=== PATIENT | male | born 1935 | race Caucasian/White ===

== ENCOUNTER 2018-02-04 11:35 | Inpatient (IN) ==
[2018-02-04] MEDS ORDERED: Aspirin 325 MG TABLET PO ONE (12:18)
--- NOTE | 2018-02-04 12:24 | Emergency Department Note ---
Disposition Clinical Impression: Non-STEMI (non-ST elevated myocardial infarction) Atrial fibrillation Qualifiers: Atrial fibrillation type: unspecified Qualified Code(s): I48.91 - Unspecified atrial fibrillation Disposition: Admitted As Inpatient Condition: Fair General Adult HPI - General Stated complaint: pnuemonia Time Seen by Provider: 02/04/18 11:52 - History of Present Illness HPI Narrative: I did take the call from the [facility] in regards to this patient. Patient was evaluated at bedside.. Patient presented to the [facility] for concern for possible pneumonia. He has had a cough present for approximately the last month. He has had rib pain which she relates to the right side and worse with coughing. Patient had blood work done showing a troponin of greater than 5. Upon further questioning in the emergency department he states that he has had episodes of diaphoresis where he is questioning whether his air conditioner is gone out. He has had difficulty walking to the mailbox be secondary to shortness of breath. Patient has not had typical chest pain type symptoms. EKG from the [facility] was nondescriptive however EKG within the emergency department shows biphasic T waves throughout the precordial leads as well as T-wave inversion throughout the lateral leads. I will place a call to cardiology. Patient will receive aspirin and heparin and admission. [facility] Chart as dictated below. Urinalysis clear with trace ketones and trace protein. Blood work shows a BNP of 13,125. Troponin 5.79. CK of 122. Sodium 137, potassium 4.7. Chloride 102. CO2 24. Glucose 324. He went 31. Creatinine 1.42. GFR 50.9. WBC 9.7. Hemoglobin 14.0. Platelets 235. A1c 9.2. Chest x-ray shows patchy perihilar opacity in the right midlung and to lesser degree in the left base with associated small right pleural effusion. Suspicious for multifocal pneumonia although pulmonary edema and CHF could have this appearance. They recommend follow-up chest x-ray. Medications include losartan 25 mg 1 tablet daily. Metoprolol 100 mg one half tablet every day. Aspirin 81 mg. Atorvastatin 20 mg at bedtime. Hydrochlorothiazide 25 mg every day. Losartan 1 tablet every day. Metformin 1 g twice a day. Past medical history of peripheral vascular disease, hypertension, diabetes. - Related Data Home Medications Medication Instructions Recorded Confirmed Aspirin [Adult Aspirin] 81 mg PO DAILY 02/04/18 02/04/18 Atorvastatin [Lipitor] 10 mg PO HS 02/04/18 02/04/18 Losartan [Cozaar] 25 mg PO DAILY 02/04/18 02/04/18 Metoprolol Succinate [Toprol Xl] 50 mg PO DAILY 02/04/18 02/04/18 Allergies Allergy/AdvReac Type Severity Reaction Status Date / Time Penicillins [PCN] Allergy Rash Verified 02/04/18 12:38 Review of Systems: CONSTITUTIONAL: No weight loss, fever, chills, weakness or fatigue. HEENT: Eyes: No visual changes. Ears, Nose, Throat: No hearing loss, difficulty talking or unable to swallow. SKIN: No rash or itching. CARDIOVASCULAR: No chest pain, chest pressure or chest discomfort. No palpitations or edema. RESPIRATORY: Shortness of breath without sputum production GASTROINTESTINAL: No anorexia, nausea, vomiting or diarrhea. No abdominal pain or blood. GENITOURINARY: No burning on urination or hematuria. NEUROLOGICAL: No headache, dizziness, syncope, paralysis, ataxia, numbness or tingling in the extremities. No change in bowel or bladder control. MUSCULOSKELETAL: No muscle pain, back pain, joint pain or stiffness. Physical Exam General: Well appearing, nontoxic, no acute distress Head: Normocephalic Atraumatic Eyes: PERRL, EOMI ENT: Airway patent, no stridor Neck: supple, no meningismus Chest: Rales bilaterally Cardiac: Regular rate and rhythm, no murmurs, rubs or gallops Abdomen: soft, nontender, nondistended; no guarding, rebound, or tenderness to percussion Musculoskeletal: Calves symmetric, nontender, no palpable cord Skin: No rash, normal skin tone Neuro: Alert and Oriented to person, place, and time; No focal deficit, Course - Reevaluation(s) Reevaluation #1: Patient with an STEMI and EKG changes. We will discuss with cardiology. Aspirin and heparin and admission. Patient is comfortable resting in bed. He does describe episodes of exertional dyspnea as well as diaphoresis but has not had chest pain. - Consultations Consultation #1: Discussed with cardiology. Patient be placed on heparin drip. Patient will be evaluated for possible catheter later today. Patient to be kept nothing by mouth. Consultation #2: Discussed hospitalist. Patient except for admission. Vital Signs Temperature 98.7 F 02/04/18 11:42 Pulse Rate 86 02/04/18 11:42 Respiratory Rate 18 02/04/18 11:42 Blood Pressure 122/71 02/04/18 11:42 O2 Sat by Pulse Oximetry 98 02/04/18 11:42 Temperature 97.7 F 02/04/18 17:58 Pulse Rate 83 02/04/18 17:58 Respiratory Rate 14 02/04/18 17:58 Blood Pressure 112/76 02/04/18 17:58 O2 Sat by Pulse Oximetry 94 02/04/18 17:58 Oxygen Delivery Oxygen Delivery Room Air Medical Decision Making - Medical Records Medical records reviewed: Yes I reviewed the patient's medical records. - Lab Data Lab results reviewed: Yes I reviewed the patient's lab results. Result diagrams: 02/04/18 12:46 02/04/18 12:46 Lab Results 02/04/18 02/04/18 02/04/18 Range/Units 12:46 12:46 12:46 WBC 8.8 (4.3-11.1) K/mcL RBC 4.21 (4.19-5.50) M/mcL Hgb 14.0 (12.9-16.9) g/dL Hct 40.9 (37.5-50.1) % MCV 97.1 (83.0-100.0) fL MCH 33.3 (28.0-33.3) pg MCHC 34.2 (31.6-35.5) g/dL RDW 13.2 (11.5-14.5) % Plt Count 208 (140-400) K/mcL MPV 11.7 (9.4-12.4) fL Immature Plt Fraction 8.4 H (1.1-6.1) % PT 14.0 H (9.4-12.1) Seconds INR 1.2 Heparin Anti-Xa, Unfract 0.06 L (0.30-0.70) IU/mL Sodium 137 (136-145) mEq/L Potassium 4.5 (3.5-5.1) mEq/L Chloride 101 (98-107) mEq/L Carbon Dioxide 27 (23-29) mEq/L BUN 31 H (8-23) mg/dL Creatinine 1.23 (0.70-1.30) mg/dL Est GFR ( Amer) > 60 (> 60) Est GFR (Non-Af Amer) 56 L (> 60) BUN/Creatinine Ratio 25 (6-26) Glucose 327 H (70-105) mg/dL Calculated Osmolality 303 H (280-300) Calcium 9.6 (8.6-10.3) mg/dL Triglycerides 102 (< 150) mg/dL Cholesterol 122 (< 200) mg/dL LDL Cholesterol, Calc 73 (0-99) mg/dL VLDL Cholesterol, Calc 20 (< 31) mg/dL HDL Cholesterol 29 L (40-59) mg/dL Cholesterol/HDL Ratio 4.2 (0-4.9) - Radiology Data Radiology results reviewed: Yes I reviewed the patient's radiology results. - EKG Data EKG #1 EKG attestation: Yes I reviewed and interpreted this EKG. EKG results narrative: EKG shows atrial fibrillation rate of 65. QRS 123. QTC 508. Patient has biphasic T waves throughout the precordial leads. T-wave inversion throughout the lateral leads. No old EKG for comparison. History of A. fib.
[2018-02-04] MEDS ORDERED: *HR* Heparin 5,000 UNIT/ML VIAL IVP ONE (12:39)
[2018-02-04] MEDS ORDERED: *HR* Heparin 5,000 UNIT/ML VIAL IVP PRN ×2 (12:39)
[2018-02-04] MEDS ORDERED: Heparin 25,000 UNIT/500 ML D5W 25,000 UNIT/500 ML BAG IVC SCH (12:45)
[2018-02-04 13:10] LABS: Hematocrit 40.9 % (37.5-50.1); Immature Platelets 8.4 % (1.1-6.1); Mean Corpuscular HGB Conc 34.2 g/dL (31.6-35.5); Mean Corpuscular Hemoglobin 33.3 pg (28.0-33.3); Mean Corpuscular Volume 97.1 fL (83.0-100.0); Mean Platelet Volume 11.7 fL (9.4-12.4); Red Blood Count 4.21 M/mcL (4.19-5.50); Red Cell Distribution Width 13.2 % (11.5-14.5)
[2018-02-04 13:27] LABS: Heparin anti-factor XA UFH 0.06 IU/mL (0.30-0.70)
[2018-02-04 13:28] LABS: INR 1.2
[2018-02-04] MEDS ORDERED: Naloxone 0.4 MG/ML INJ IVP PRN ×2 (13:45→13:48)
--- NOTE | 2018-02-04 13:46 | Cardiology Consult Note ---
<Leelee Lin Vladimir - Last Filed: 02/04/18 15:13> Date of Encounter: 02/04/18 Time of Encounter: 13:00 Assessment and Plan (1) Non-STEMI (non-ST elevated myocardial infarction) Current Visit: Yes Status: Acute Patient presented to the [facility] with ongoing cough and shortness of breath for 1+ month. No acute ECG changes noted. Initial troponin 5.79. Chest pain free upon exam. Reports symptoms consistent with stable angina over the past 1+ years. Reports remote hx of normal stress test. Agree with IV heparin gtt, asa 325 mg x1 now and then 81 mg daily. Continue home BB, statin. Recommend LHC with possible PCI; alternatives, risks, and benefits discussed, he is agreeable to proceed. Check echocardiogram. Cardiac rehab consult. Will continue to follow. (2) Atrial fibrillation Current Visit: Yes Status: Acute Newly discovered atrial fibrillation, chronicity unclear. Asymptomatic--no palpitations reported. Remains rate controlled, 70's-80's, continue home dose of Toprol XL. Check TTE, TSH, BMP pending. CHA2Ds Vasc= (4--HTN, DMII, age, suspected CAD); likely will require full AC. Will continue heparin gtt for now, discuss NOAC vs. coumadin once testing completed. Of note, follows with [facility]. Qualifiers: Atrial fibrillation type: unspecified Qualified Code(s): I48.91 - Unspecified atrial fibrillation (3) Peripheral vascular disease Current Visit: Yes Status: Chronic Reports symptoms consistent with intermittent claudication. On asa and statin. RACHEL's ordered by primary service. If abnormal, recommend vascular surgery consult. Discussion w patient/family: The assessment and plan as outlined above was discussed with the patient and/or family members who expressed understanding and agreement. All questions were answered. Thank you for involving us in the care of your patient. Please call with any questions. History of Present Illness Consult date: 02/04/18 Requesting physician: Clifford Horn Consult reason: NSTEMI Chief complaint: Cough, shortness of breath History of present illness: Mr. Marshall is a 82 year old male with PMHx significant of HTN, HLD, and DMII who presented [facility] the ED [facility] to elevated troponin of 5.79. Reports he presented to the ED due to ongoing cough that has been present over the past month. He notes that his of 47 years recently secondary to PNA and wanted to ensure he was not developing PNA. Also reports ongoing shortness of breath that has been present over the past several months and symptoms consistent with stable angina over the past several years; reports non- radiating midsternal chest tightness that occurred with walking 50+ yards, improved with rest. Describes bilateral lower extremity cramping with ambulation , improves with rest. Upon exam he is chest pain free. No acute ECG changes. Reports remote hx of stress test. Past Med Surg Social Fam HX - Past Medical History Attestation: Yes The following information was validated with the patient. Source: patient Medical history: diabetes, hyperlipidemia, hypertension Psychiatric history: no psych history - Past Surgical History Surgical History: non-contributory - Social History Smoking Status: Former smoker Packs per day: quit 1973 Smokeless Tobacco Status: No Alcohol use: rarely Drug use: none Medications and Allergies Aspirin [Adult Aspirin] 81 mg PO DAILY 02/04/18 [History] Atorvastatin [Lipitor] 10 mg PO HS 02/04/18 [History] Losartan [Cozaar] 25 mg PO DAILY 02/04/18 [History] Metoprolol Succinate [Toprol Xl] 50 mg PO DAILY 02/04/18 [History] 3 Allergy/AdvReac Type Severity Reaction Status Date / Time Penicillins [PCN] Allergy Rash Verified 02/04/18 12:38 All Systems Review: The remainder of the systems were reviewed and are negative - Cardiovascular Cardiovascular: as per HPI Physical Examination Vital Signs, Last 4 Hours Temp Pulse Resp BP Pulse Ox 02/04/18 13:00 82 20 143/71 99 02/04/18 12:40 98 02/04/18 12:30 79 18 124/69 99 02/04/18 12:00 78 20 115/76 99 02/04/18 11:42 98.7 F 86 18 122/71 98 General: Conversant, No Apparent Distress HEENT: Atraumatic, Normocephaly, Mucus Membranes Moist Neck: No JVD, Normal carotid pulses Cardiac: No Murmur, Other (irregularly irregular) Lungs: Normal Breath Sounds, No Wheeze, Rales, Rhonchi Neuro: Alert and responsive, No focal deficits noted Abdomen: Soft, Non-Tender Skin: No rashes noted on visualized skin Musculoskeletal: No Chest Wall Tenderness Extremities: No Clubbing, No Cyanosis, No Edema, Normal Pulses Results 02/04/18 12:46 02/04/18 12:46 Lab Results 02/04/18 02/04/18 12:46 12:46 WBC 8.8 Hgb 14.0 Hct 40.9 Plt Count 208 INR 1.2 Active Medications Dextrose/Water (Dextrose 50% (Syg)) 25 ml IVP AD PRN PRN Reason: Hypoglycemia Stop: 08/06/18 13:48 Glucagon (Glucagen) 1 mg IM ONCE PRN PRN Reason: Hypoglycemia Stop: 08/06/18 13:48 Glucose (Gluctose) 15 gm PO ONCE PRN PRN Reason: Hypoglycemia Stop: 08/06/18 13:48 Glucose (Gluctose) 30 gm PO ONCE PRN PRN Reason: Hypoglycemia Stop: 08/06/18 13:48 Heparin Sodium (Porcine) (Heparin) 4,000 unit IVP Q6HR PRN PRN Reason: SEE COMMENTS Stop: 08/06/18 12:40 Heparin Sodium (Porcine) (Heparin) 2,000 unit IVP Q6H PRN PRN Reason: SEE COMMENTS Stop: 08/06/18 12:40 Heparin Sodium/Dextrose (Heparin 25,000 Unit/500 Ml D5w) 25,000 unit in 500 mls @ 16.645 mls/hr IVC .Q24H GARFIELD; 12 UNIT/KG/HR PRN Reason: Protocol Stop: 08/06/18 12:46 Last Admin: 02/04/18 13:18 Dose: 12 unit/kg/hr, 16.645 mls/hr Dextrose (Dextrose 5%) 1,000 mls @ 100 mls/hr IVC .Q10H PRN PRN Reason: HYPOGLYCEMIA Stop: 08/06/18 13:48 Insulin Human Lispro (Humalog) 0 units SQ HS G[facility] PRN Reason: Protocol Stop: 08/06/18 21:01 Insulin Human Lispro (Humalog) 0 units SQ TIDAC [facility] PRN Reason: Protocol Stop: 08/06/18 16:31 Levofloxacin (Levaquin) 750 mg PO DAILY [facility] Stop: 08/07/18 09:01 Naloxone HCl (Narcan) 0.4 mg IVP Q2MIN PRN PRN Reason: SEE COMMENTS Stop: 08/06/18 13:46 Nitroglycerin (Nitroglycerin) 0.4 mg SL Q5MIN PRN PRN Reason: Chest Pain Stop: 08/06/18 14:04 - Imaging and Cardiology Chest Xray: report reviewed Echo: pending Cardiac cath: pending - EKG Interpretation EKG results cardiology: personally reviewed Consult Discharge Plan - Plan [facility]errals: [facility]Primary Care Provider] - <Wiliam Scherer - Last Filed: 02/05/18 11:16> Date of Encounter: 02/04/18 - Attending Attestation I have personally performed a face to face evaluation on this patient. I have reviewed and agree with the care plan. History and Exam by me shows: CC: Chest pain HPI: PT presented to ER with complaints of cough and shortness of breath x 1 month. He also complains of chest heaviness, mid epigastric, occurs with exercise, associated with shortness of breath he has been attributing to indigestion. He also reports increased fatigue over last several weeks, which he had attributed to recent loss of his three weeks ago. On evalution in the [facility] was found to have eelvated troponin, and transferred to [facility]. He is pain free at present on current medications and O2. He was recently diagnosed with A fib with conttrolled ventricular response of unclear duration. Pt believes started one to two weeks ago, with increased shortness of breath with exertion, but no palpitations. ROS: reviewed PMH: reviewed PE: Pt seen and examined, agree with findings as documented IMP: 1. NSTEMI,discussed risk and benefits, recommend emergent LHC/Poss en light of increasing cardiac enzemes, Pt agrees to proceed. 2. A fib with controlled ventricular response of unknown duration, will add long acting beta blockade to control ventricular response, follow clinical response. 3. Claudication: will evaluate lower ext arterial dopplers after coronary artery anatomy is defined. Assessment and Plan Discussion w patient/family: The assessment and plan as outlined above was discussed with the patient and/or family members who expressed understanding and agreement. All questions were answered. Thank you for involving us in the care of your patient. Please call with any questions. History of Present Illness History of present illness: Mr. Marshall is a 82 year old male Past Med Surg Social Fam HX - Family History Mother Living Status: Age at : 93 Cause of : stroke Hx Family Cardiac Disorders: Yes (Htn) Father Living Status: Age at : 81 Cause of : Stroke Hx Family Cancer: Yes (Bladder ca) All Systems Review: The remainder of the systems were reviewed and are negative Physical Examination Vital Signs, Last 4 Hours Temp Pulse Resp BP Pulse Ox 02/05/18 07:19 97.9 F 92 16 116/72 91 Results 02/05/18 03:07 02/05/18 03:07 Lab Results 02/04/18 02/04/18 02/05/18 15:33 15:33 03:07 WBC 10.6 Hgb 13.5 Hct 39.9 Plt Count 202 INR APTT Sodium Potassium Chloride Carbon Dioxide BUN Creatinine Glucose Calcium Magnesium Total Bilirubin AST ALT Alkaline Phosphatase Troponin I 5.21 H* B-Natriuretic Peptide 1505 H 02/05/18 02/05/18 03:07 03:07 WBC Hgb Hct Plt Count INR 1.3 APTT 26.7 Sodium 133 L Potassium 3.7 Chloride 101 Carbon Dioxide 25 BUN 34 H Creatinine 1.37 H Glucose 208 H Calcium 9.0 Magnesium 1.8 Total Bilirubin 0.8 AST 20 ALT 32 Alkaline Phosphatase 59 Troponin I B-Natriuretic Peptide
[2018-02-04] MEDS ORDERED: *HR* Dextrose 50 % in Water (Syg) 50 ML SYRINGE IVP PRN ×2 (13:47→13:48)
[2018-02-04] MEDS ORDERED: D5% in Water 1,000 ML IVC PRN ×2 (13:47→13:48)
[2018-02-04] MEDS ORDERED: Dextrose Gel 15 GM/37.5 ML TUBE PO PRN ×4 (13:47→13:48)
--- NOTE | 2018-02-04 13:57 | Internal Med History&Physical ---
Addendum entered and electronically signed by Delbert Carrington 02/04/18 14:43: Add to assessment: Pneumonia -CXR shows pulmonary edema and cannot exclude multifocal disease -blood cultures -sputum culture -legionella and strep pneumo antigen -Mycoplasma IgM antigen -lactic acid check -respiratory panel -will start on 750mg PO Levaquin -recheck BNP Pulmonary edema -pneumonia vs heart failure -ECHO pending -if pt becomes SOB, we will add 20mg IVP lasix to tx the pulmonary edema Type 1 (atherosclerotic ) vs Type 2 (demand ischemia) Original Note: <Delbert Carrington - Last Filed: 02/04/18 13:52> Date of Encounter: 02/04/18 Time of Encounter: 13:52 Internal Medicine - H&P: HPI Chief complaint: "coughing" Admitted From: Home Plans for Post Hospital Care: Home History of present illness: Mr. Marshall is a 82 year old male with PMH of T2DM, HDL, HTN, PAD. He presented to the ER with complaints of increasing SOB and cough. The pt states he has been chronically SOB for years but over the last month the pt has had increased SOB from his baseline. He also c/o cough, which has been worse the last few nights. He has been coughing so hard that his ribs hurt at times. The patient has no complaints of chest pain. He has had some fevers/chills over the last few days. No c/o radiating pain to jaw or left arm. The patient states he has never had a heart attack before, no previous cardiax hx is on file. He denies having a LHC in the past, no stents, and had a stress test at one point that was negative for ischemia/infarct. The pt states that the most active thing he does is walk to the mailbox, which he does without difficulty. He has been having increasing claudication with long distances, however, and has been taking more of his PAD medications although he doesn't really seem to know what medications he uses. The patient will be admitted today and will have a LHC done later today. The pt is informed of all the risks and benefits of LHC by finance clerk, Dr. Scherer, and will have procedure later today. Past Med Surg Social Fam HX - Past Medical History Medical history: diabetes, hyperlipidemia, hypertension Psychiatric history: no psych history - Social History Smoking Status: Never smoker Smokeless Tobacco Status: No Alcohol use: none Drug use: none Internal Medicine - H&P: Meds Aspirin [Adult Aspirin] 81 mg PO DAILY 02/04/18 [History] Atorvastatin [Lipitor] 10 mg PO HS 02/04/18 [History] Losartan [Cozaar] 25 mg PO DAILY 02/04/18 [History] Metoprolol Succinate [Toprol Xl] 50 mg PO DAILY 02/04/18 [History] 3 Allergy/AdvReac Type Severity Reaction Status Date / Time Penicillins [PCN] Allergy Rash Verified 02/04/18 12:38 All Systems PM: A 10-system review of systems was performed and is negative for pertinent findings except as documented above in the HPI. - Constitutional Constitutional: chills, fever(s) - Cardiovascular Cardiovascular ROS IM: claudication, no chest pain, no dyspnea, no dyspnea on exertion, no irregular heart rhythm, no palpitations - Respiratory Respiratory: cough, wheezing - Gastrointestinal Gastrointestinal: no diarrhea, no vomiting - Neurological Neurological ROS: no dizziness, no numbness, no tingling - Constitutional Vitals: Temp Pulse Resp BP Pulse Ox 98.7 F 82 20 143/71 99 02/04/18 11:42 02/04/18 13:00 02/04/18 13:00 02/04/18 13:00 02/04/18 13:00 Exam: General - AOx3, NAD Cardio - RRR, s1s2, CTA , no mrg lungs - CTAB, no wheeze abd - NTND, no mass, no rebound or guarding skin - intact, no rash extremities - no edema, hairless legs B/L 2/2 PAD psych - appropriate affect Internal Med - H&P Results - Labs CBC & Chem 7: 02/04/18 12:46 Labs: Short CBC 02/04/18 Range/Units 12:46 WBC 8.8 (4.3-11.1) K/mcL Hgb 14.0 (12.9-16.9) g/dL Hct 40.9 (37.5-50.1) % Plt Count 208 (140-400) K/mcL - Assessment and plan (1) Non-STEMI (non-ST elevated myocardial infarction) Status: Acute Assessment and plan: Pt is a transfer from [facility] -had a troponin of 5 on admission -has been having increasing SOB from baseline with cough In the ER, he is started on a heparin drip and cardiology is planning to do a LHC on him later today -ASA 325mg given Plan: -LHC planned for today -CXR pending -UBALDO score of 4 ---> will benefit from early LHC -continue heparin drip per protocol -NPO for LHC -trending troponins -continue Artorvastatin 20mg at bedtime, Losartan 25mg per day, metoprolol 100mg 1/2 tablet everyday -nitroglycerin 0.4mg q5min prn chest pain -ECHO pending -cardiology consulted, appreciate recommendations (2) Hypertension Status: Chronic Assessment and plan: BP 124/69 -adequate control -Losartan 25mg daily, Lopressor, HCTZ 25mg everyday Qualifiers: Hypertension type: essential hypertension Qualified Code(s): I10 - Essential (primary) hypertension (3) Hyperlipidemia Status: Chronic Assessment and plan: Atorvastatin 20 mg at bedtime. -lipid panel pending -can go up to 40-80mg if ok with cardiology -cardiac diet Qualifiers: Hyperlipidemia type: unspecified Qualified Code(s): E78.5 - Hyperlipidemia , unspecified (4) Peripheral vascular disease Status: Chronic Assessment and plan: RACHEL's pending (5) Diabetes mellitus Status: Acute Assessment and plan: Low dose sliding scale -hold metformin Qualifiers: Diabetes mellitus type: type 2 Diabetes mellitus alf insulin use: without windows systems architect use Diabetes mellitus complication status: with unspecified complications Qualified Code(s): E11.8 - Type 2 diabetes mellitus with unspecified complications (6) Atrial fibrillation Status: Acute Assessment and plan: EKG showed a fib in the ER -HR 82 - Metoprolol 100 mg one half tablet every day. Aspirin 81 mg Qualifiers: Atrial fibrillation type: chronic Qualified Code(s): I48.2 - Chronic atrial fibrillation (7) DVT prophylaxis Status: Acute Assessment and plan: On heparin drip as per protocol - Time Spent With Patient Total time spent is greater than 50% in coordination of care (as documented) at patient's floor/unit and/or counseling patient: less than 15 minutes <Krystle Alexander - Last Filed: 02/04/18 18:02> Date of Encounter: 02/04/18 Internal Medicine - H&P: HPI History of present illness: Mr. Marshall is a 82 year old male All Systems PM: A 10-system review of systems was performed and is negative for pertinent findings except as documented above in the HPI. - Constitutional Vitals: Temp Pulse Resp BP Pulse Ox 97.8 F 80 14 89/58 93 02/04/18 17:28 02/04/18 17:28 02/04/18 17:28 02/04/18 17:28 02/04/18 17:28 Internal Med - H&P Results - Labs CBC & Chem 7: 02/04/18 12:46 02/04/18 12:46 Labs: Cardiac Enzymes 02/04/18 Range/Units 15:33 Troponin I 5.21 H* (< 0.04) ng/mL - Assessment and plan (1) Non-STEMI (non-ST elevated myocardial infarction) Current Visit: Yes Status: Acute (2) Atrial fibrillation Current Visit: Yes Status: Acute Qualifiers: Atrial fibrillation type: unspecified Qualified Code(s): I48.91 - Unspecified atrial fibrillation (3) Hypertension Current Visit: No Status: Chronic Qualifiers: Hypertension type: essential hypertension Qualified Code(s): I10 - Essential (primary) hypertension (4) Hyperlipidemia Current Visit: No Status: Chronic Qualifiers: Hyperlipidemia type: unspecified Qualified Code(s): E78.5 - Hyperlipidemia , unspecified (5) Peripheral vascular disease Current Visit: Yes Status: Chronic (6) Diabetes mellitus Current Visit: No Status: Acute Qualifiers: Diabetes mellitus type: type 2 Diabetes mellitus alf insulin use: without alf use Diabetes mellitus complication status: with unspecified complications Qualified Code(s): E11.8 - Type 2 diabetes mellitus with unspecified complications (7) DVT prophylaxis Current Visit: No Status: Acute - Time Spent With Patient Total time spent is greater than 50% in coordination of care (as documented) at patient's floor/unit and/or counseling patient: - Attending Attestation I examined this patient and my medical decision-making was reviewed with the Resident Physician Dr. Carrington. I agree with the documented findings, disposition and treatment plan as described except to the extent set forth below. Mr. Marshall is a 82 year old male with PMH of T2DM, HDL, HTN, PAD. He presented to the ER with complaints of increasing SOB and cough for 3-4 weeks. He denied any CP. He went to [place] ER, where his initial Trop was elevated at 5.7, pt was transferred here for further care. His CXR showed multi focal infection, and pulm edema. He was admitted in the hospital and started him Heparin gtt. He just went for LHC, which showed severe multi vessel CAD. Card recommend CTS consult for CABG. He denied any CP. Mild SOB only. Gen: A, A< O x 3 Chest: Diminished BS b/l, no ronchi Heart: S1S2+ RRR No murmurs 1. Acute PNA - bacterial slightly elevated LA started on empirical abx Levaquin 2. Acute NSTEMI with severe multi vessel CAD s/p LHC now.. CTS consulted cont Heparin gtt for now ASA+ Statin + BB 3. Acute CHF exacerbation could be systolic 2D Echo pending due to pneumonia, will hold on Lasix for now
[2018-02-04] MEDS ORDERED: Nitroglycerin 0.4 MG TAB.SUBL SL PRN (14:03)
[2018-02-04 14:41] LABS: BUN/Creatinine Ratio 25 (6-26); Blood Urea Nitrogen 31 mg/dL (8-23); Calcium 9.6 mg/dL (8.6-10.3); Carbon Dioxide 27 mEq/L (23-29); Chloride 101 mEq/L (98-107); Chol/HDL Ratio 4.2 (0-4.9); Cholesterol 122 mg/dL (< 200); Glucose 327 mg/dL (70-105); HDL Cholesterol 29 mg/dL (40-59); LDL Cholesterol,Calculated 73 mg/dL (0-99); Osmolality,Calculated 303 (280-300); Potassium 4.5 mEq/L (3.5-5.1); Sodium 137 mEq/L (136-145); Triglycerides 102 mg/dL (< 150); eGFR For Non-African Americans 56 (> 60)
[2018-02-04] MEDS ORDERED: Heparin 1,000 UNITS/500 mL 0 ML ONE (15:42)
[2018-02-04] MEDS ORDERED: 0.9 % Sodium Chloride 1,000 ML ONE ×2 (15:42→16:15)
[2018-02-04] MEDS ORDERED: ISOVUE-370 200 ML INFUS..BTL IV ONE ×2 (15:42→16:34)
[2018-02-04] MEDS ORDERED: *HR* Heparin 10,000 UNIT/10 ML VIAL ONE (15:42)
[2018-02-04] MEDS ORDERED: Nitroglycerin 1,000 MCG/10 ML VIAL IV ONE (15:43)
--- NOTE | 2018-02-04 15:50 | Pre-Sedation Evaluation ---
Pre-sedation evaluation - Pre-sedation checklist Date of procedure: 02/04/18 Procedure: [facility] Recent Vitals: Last Vital Signs Temp 98.7 F 02/04/18 11:42 Pulse 85 02/04/18 14:20 Resp 20 02/04/18 14:20 BP 101/68 02/04/18 14:20 Pulse Ox 98 02/04/18 14:20 H&P (including ROS) documented in medical record: Yes Previous reaction to sedatives/anesthetics: No Dietary Status: NPO after Midnight Airway Assessment: Patient can open mouth completely, TMJ function normal, Micrognathia (under-bite, receding chin) absent, Neck with adequate range of motion Dentition: No loose teeth or bridges Possible difficult airway: No ASA Classification *see protocol: CLASS II-Mild systemic disease Plan of Care: Pt appropriate candidate for procedure/moderate/conscious sedation , Risks/benefits of procedure/sedation discussed w/ patient/family Cardiac Registry (Cardio Only) - Functional Capacity Functional Capacity: < 4 METS - Clincal Frailty Scale Clinical Frailty Scale: Vulnerable
[2018-02-04] MEDS ORDERED: *HR* Midazolam HCl 2 MG/2 ML VIAL ONE (16:14)
[2018-02-04] MEDS ORDERED: *HR* FentaNYL (PF) 100 MCG/2 ML VIAL ONE (16:15)
--- NOTE | 2018-02-04 17:27 | Invasive Diagnostic Lab Proc ---
Name: Laith Marshall Date of Study: 02/04/2018 Date: 1935 Ht: 66.1in Medical Record#: [id number] Age: 82 Wt: 152.12lb Gender: Male BSA: 1.78 Order #: [id number] BMI: 24.45 Physicians Procedure Physician: Karina Good MD, [facility] Referring MD: Referring MD: Staff Name Position Time In Tyler Camacho RN Monitor 03:54 PM Marcella Pham RT (R) Scrub 03:54 PM Catherine Diana RN Inductor Tester 03:55 PM Indications Indication Non-Stemi Procedures Performed Procedure L HRT ARTERY/VENTRICLE ANGIO INJECT SUPRVLVAORTAGRAM Pre-Procedure Checklist Informed consent is complete signed and on chart. H&P is on chart. ID band is on and ID verified with patient. Patient NPO for procedure The procedure was described for the patient and questions were answered. ECG is on chart. Plan of Care Patient will tolerate the procedure without complications. Adequate level of comfort will be maintained. Hemodynamics will remain stable Patient will recover from procedure without complications. Respiratory function will be maintained. Cardiac rhythm will remain stable. Patient temperature will be maintained. Patient and/or family have verbalized understanding of the procedure. Patient Education Chief Complaint/Reason for Test: Cardiac Cath Developmental Category: Geriatric (65+ years) Developmentally Appropriate for Age: Yes Learning Barriers: None Education Needs: Procedure Education Method: Verbal Information Taught: Cardiac Cath Educational Evaluation: Able to repeat information Intravenous Access Time IV Size Location DC'd Fluid/Drip Rate Units RN Started with 22g 1 " 0.9NaCl ml/hr Allergies Penicillins Vital Signs Time BP (mmHg) HR (bpm) O2 Sat. RR (bpm) LOC 04:12 PM / % 5 = Fully awake and oriented or at pre-proc level 04:12 PM / % 4 = Oriented but drowsy 04:27 PM / % 4 = Oriented but drowsy 04:10 PM 92 / 63 104 83 % 10 04:15 PM 145 / 82 78 96 % 21 04:20 PM 128 / 78 82 96 % 22 04:25 PM 111 / 64 73 92 % 17 04:30 PM 122 / 66 77 95 % 16 04:35 PM 115 / 65 68 98 % 16 04:40 PM 111 / 61 84 96 % 17 04:45 PM 94 / 55 76 98 % 17 04:50 PM 116 / 61 75 86 % 18 04:55 PM 118 / 72 61 85 % 20 Procedural Medications Time Medication Dose Units Method Given By 04:13 PM Oxygen 2 L/min nasal cannula Catherine Diana RN 04:19 PM Versed 2 mg Intravenous Catherine Diana RN 04:19 PM Fentanyl 50 mcg Intravenous Catherine Diana RN 04:20 PM Lidocaine 2% 20 ml Subcutaneous Karina Good MD, [facility] ASA Classification: CLASS II- Mild systemic disease (i.e. well-controlled diabetes, hypertension, asthma, cigarette smoking) Jr Score Preprocedure Postprocedure Activity 2- Moves 4 extremities sustained head lift Activity 2- Moves 4 extremities sustained head lift Circulation 2- SBP +/= 20 points of pre-anesthetic level Circulation 2- SBP +/= 20 points of pre-anesthetic level Consciousness 2- Awake and alert oriented x 3 Consciousness 2- Awake and alert oriented x 3 O2 Saturation 2- Able to maintain O2 satruation of 92% on room air O2 Saturation 2- Able to maintain O2 satruation of 92% on room air Respiratory 2- Able to deep breathe and cough well Respiratory 2- Able to deep breathe and cough well Total Score 10 Total Score 10 Contrast Agent: Isovue Diagnostic Contrast: 240 ml Total Contrast: 240 ml Fluoro Dose: 71979 mGy Procedure Log Time Note Enter By 03:51 PM CathStat 03:54 PM Tyler Camacho RN Position: Monitor Time in: 15:54 cedwards 03:54 PM Marcella Pham RT (R) Position: Scrub Time in: 15:54 cedwards 03:55 PM Catherine Diana RN Position: Inductor Tester Time in: 15:55 cedwards 04:07 PM Pt arrived to microbiological laboratory technician 2 at 16:07 cedwards 04:07 PM Patient charges- Angio tray pack, Navilyst 3mm J, Pulse Oximetry and ACIST tubing and transducer cedwards 04:07 PM IV Supplies used: J loop Angio Cath. cedwards 04:07 PM Physician arrived 16:07 cedwards 04:08 PM ASA Class CLASS II- Mild systemic disease (i.e. well-controlled diabetes, hypertension, asthma, cigarette smoking) cedwards 04:08 PM Franky and sandor completed cedwards 04:08 PM Sign in performed according to hospital policy. cedwards 04:08 PM Procedure start 16:08 ced 04:09 PM Case Start 04:09 PM Vitals capture started with the following parameters, Patient=Adult, Interval=5 min, Initial Keuefmcz=967 mmHg, Deflation Rate=5 mmHg, Cuff placed on Right Arm 04:10 PM TR=770 bpm, NIBP=92/63 mmhg, SpO2=83.0 %, Resp=10 B/min 04:10 PM Recorded ECG: HR=93 Condition=Condition 1 04:11 PM Recorded ECG: HR=96 Condition=Condition 1 04:12 PM Time: 16:12 Patient comfortable and pain free: Yes cedwards 04:12 PM Time: 16:12LOC: 5 = Fully awake and oriented or at pre-proc level ced 04:13 PM Time: 16:13 Oxygen on at 2 L/min per nasal cannula by Catherine Diana RN ced 04:14 PM Hair removed from procedure site in procedure lab using clippers. Bilateral groin prepped with Chloraprep by Catherine Diana RN, then patient was draped. Skin intact. ced 04:15 PM HR=78 bpm, AUVK=729/82 mmhg, SpO2=96.0 %, Resp=21 B/min, EtCO2=30 mmHg, Comment=NSR 04:19 PM Time: 16:19 Versed 2 mg Intravenous Given by Catherine Diana RN ced 04:19 PM Time: 16:19 Fentanyl 50 mcg Intravenous Given by Catherine Diana RN ced 04:19 PM Clinical Presentation: Non-STEMI ced 04:20 PM Time out performed according to hospital policy ced 04:20 PM HR=82 bpm, CCLO=884/78 mmhg, SpO2=96.0 %, Resp=22 B/min, EtCO2=30 mmHg, Comment=NSR 04:21 PM Time: 16:20 20 ml Lidocaine 2% to right groin Subcutaneous Given by Karina Good MD, [facility] ced 04:24 PM Access obtained by percutaneous puncture. 5Fr 10cm Terumo [place] sheath placed in right Femoral artery. [id number] cedwards 04:25 PM HR=73 bpm, TVTP=257/64 mmhg, SpO2=92.0 %, Resp=17 B/min, EtCO2=15 mmHg, Comment=NSR 04:25 PM 5Fr FL 4 catheter inserted over the wire DNC cedwards 04:25 PM Recorded Pressure: Ao, HR=71, Condition=Condition 1 (Aorta) Ao 56/-7/21 04:26 PM LCA angiography performed in multiple views. cedwards 04:26 PM Recorded Pressure: Ao, HR=74, Condition=Condition 1 (Aorta) Ao 86/50/68 04:27 PM Time: 16:12 Patient comfortable and pain free: Yes cedwards 04:27 PM Time: 16:12LOC: 4 = Oriented but drowsy cedwards 04:27 PM Catheter removed cedwards 04:27 PM 5Fr FR 4 catheter inserted over the wire [facility] cedwards 04:30 PM HR=77 bpm, RHMD=449/66 mmhg, SpO2=95.0 %, Resp=16 B/min 04:[address] Wu pagewinter for CABG consult cedwards 04:31 PM Catheter removed cedwards 04:31 PM 5Fr 3DRC catheter inserted over the wire [id number] cedwards 04:[address] Wu cedwards 04:34 PM unable to engage RCA cedwards 04:35 PM HR=68 bpm, TMZK=826/65 mmhg, SpO2=98.0 %, Resp=16 B/min, Comment=AFIB 04:36 PM Recorded Pressure: Ao, HR=82, Condition=Condition 1 (Aorta) Ao 86/51/68 04:37 PM Catheter removed cedwards 04:39 PM Pressure channel 1 zeroed. 04:39 PM Recorded Pressure: LV, HR=85, Condition=Condition 1 (Left Ventricle) LV 84/20/22 04:39 PM Recorded Pressure: LV, Ao, HR=67, Condition=Condition 1 (Left Ventricle) LV 80/13/33, (Aorta) Ao 77/44/59 04:40 PM 5Fr Pigtail catheter inserted over the wire [facility] [place] cedwards 04:40 PM Catheter selectively placed in left ventricle cedwards 04:40 PM Bolus angiogram of left Ventricle complete: 8 ml/sec for a total of 24 mls cedwards 04:40 PM Catheter removed cedwards 04:40 PM 5Fr AL catheter inserted over the wire [id number] cedwards 04:40 PM HR=84 bpm, VDZP=201/61 mmhg, SpO2=96.0 %, Resp=17 B/min, Comment=AFIB 04:42 PM Time: 16:27 Patient comfortable and pain free: Yes cedwards 04:42 PM Time: 16:27LOC: 4 = Oriented but drowsy cedwards 04:44 PM Recorded Pressure: Ao, HR=84, Condition=Condition 1 (Aorta) Ao 84/53/68 04:45 PM HR=76 bpm, NIBP=94/55 mmhg, SpO2=98.0 %, Resp=17 B/min, Comment=AFIB 04:48 PM Catheter removed cedwards 04:49 PM 5Fr Pigtail catheter inserted over the wire [facility] [place] cedwards 04:50 PM Bolus angiogram of Aortic root complete: 15 ml/sec for a total of 30 mls cedwards 04:50 PM HR=75 bpm, OKIL=938/61 mmhg, SpO2=86.0 %, Resp=18 B/min, Comment=AFIB 04:51 PM Bolus angiogram of Aortic root complete: 15 ml/sec for a total of 30 mls cedwards 04:51 PM Catheter removed, 7mL bolus angio of right groin cedwards 04:52 PM Procedure completed at 16:52 02/04/2018 cedwards 04:52 PM Did you address UBALDO flow and Dominance? Yes cedwards 04:55 PM Sign out completed: Radiation Dose 1091.19 mGy, 90539 cGy/cm2 Fluoro Time: 13.9 Isovue 370 - 200ml contrast 240 ml given by Karina Good MD, [facility]. Complications: NoneCardiac Rehab Consult needed: NoConfirmed administered medications: Yes cedwards 04:55 PM HR=61 bpm, ILSR=963/72 mmhg, SpO2=85 %, Resp=20 B/min 04:55 PM Arterial sheath pulled, Mynx closure device used and was Successful [id number] S/N. cedwards 04:56 PM Estimated Blood Loss: minimal cedwards 04:56 PM Post ECG Atrial Fibrillation cedwards 04:56 PM Post Blood Pressure 118/72 cedwards 04:56 PM Information taught Cardiac Cath and Mynx cedwards 04:56 PM Education needs Procedure, Plan of Care, and Disease Process cedwards 04:56 PM Learning barriers :None cedwards 04:56 PM Education Methods Verbal cedwards 04:56 PM Education evaluation Able to repeat information cedwards 04:56 PM Site status No bleeding/hematoma - Rt Groin as reported by Karina Good MD, FACC at 16:56 cedwards 04:56 PM Opsite applied cedwards 04:56 PM Plavix, Effient or Brilinta given No cedwards 05:04 PM Family placed in consult room. cedwards 05:04 PM Complications: None cedwards 05:04 PM Patient out of room: 17:04 cedwards 05:06 PM Report given to Lupe QUINONEZ Pt taken to 2A Room #32. 17:04 cedwards 05:06 PM Coronary Dominance: right cedwards 05:06 PM Lesion found in Proximal RCA. Pre Stenosis: 100 Pre UBALDO Flow: cedwards 05:07 PM Lesion found in Proximal LMCA. Pre Stenosis: 50 Pre UBALDO Flow: cedwards 05:07 PM Lesion found in Proximal LAD. Pre Stenosis: 80 Pre UBALDO Flow: cedwards 05:07 PM Lesion found in Mid LAD. Pre Stenosis: 95 Pre UBALDO Flow: cedwards 05:07 PM Lesion found in Proximal Circumflex. Pre Stenosis: 100 Pre UBALDO Flow: cedwards Complications Complication None None Hemodynamics Pressures Site Systolic/A Wave Diastolic/V Wave Mean AO 56 -7 21 AO 86 50 68 AO 86 51 68 LV 84 20 22 LV 80 13 33 AO 77 44 59 AO 84 53 68 Post Procedure Information Blood Pressure: 118/72 mmHg Rhythm: Atrial Fibrillation Post procedural instructions were given Surgery consult for CABG Closure Device Time Device Success/Fail 02/04/2018 4:57:00 PM MynxGrip Successful Site Checks Time Location Status Staff Sheath In? Note 04:56 PM Rt Groin No bleeding/hematoma Karina Good MD, FACC No Pulses Time Site Pre-Procedure Post-Procedure Note Bilateral DP & PT 1+ 1+ Bilateral radial 2+ 2+ Updated by Tyler Camacho RN on 02/04/2018 5:17:40 PM electronically signed on 02/04/2018 5:19:51 PM with status of Final
[2018-02-04] MEDS ORDERED: 0.9 % Sodium Chloride 1,000 ML IVC SCH (17:30)
[2018-02-04] MEDS: Metoprolol XL (24 HR) Succ 50 MG TAB.ER.24H PO SCH (18:10)
[2018-02-04] MEDS: Insulin LISPRO 300 UNITS/3 ML VIAL SQ SCH ×2 (18:27→20:13)
[2018-02-04] MEDS: levoFLOXacin 750 MG TABLET PO SCH (18:27)
[2018-02-05 03:42] LABS: Basophils % 0.3 %; Eosinophils # 0.2 K/mcL (0.0-0.6); Eosinophils % 1.9 %; Hematocrit 39.9 % (37.5-50.1); Hemoglobin 13.5 g/dL (12.9-16.9); Immature Granulocytes % 0.7 % (0-4); Lymphocytes # 1.4 K/mcL (0.6-4.6); Mean Corpuscular HGB Conc 33.8 g/dL (31.6-35.5); Mean Corpuscular Hemoglobin 33.3 pg (28.0-33.3); Mean Corpuscular Volume 98.3 fL (83.0-100.0); Mean Platelet Volume 11.5 fL (9.4-12.4); Monocytes % 9.5 %; Platelet Count 202 K/mcL (140-400); Red Blood Count 4.06 M/mcL (4.19-5.50); Red Cell Distribution Width 13.3 % (11.5-14.5); Segmented Neutrophils % 74.6 %
[2018-02-05 03:47] LABS: INR 1.3; Prothrombin Time 14.7 Seconds (9.4-12.1)
[2018-02-05 03:50] LABS: Activated Partial Thrombo Time 26.7 Seconds (26.0-36.0)
[2018-02-05 04:00] LABS: Alanine Aminotransferase 32 Units/L (7-52); Albumin 3.4 g/dL (3.5-5.7); Albumin/Globulin Ratio 1.3 (1.1-2.2); Alkaline Phosphatase 59 Units/L (34-104); Aspartate Amino Transferase 20 Units/L (13-39); BUN/Creatinine Ratio 25 (6-26); Bilirubin,Total 0.8 mg/dL (0.3-1.0); Blood Urea Nitrogen 34 mg/dL (8-23); Carbon Dioxide 25 mEq/L (23-29); Chloride 101 mEq/L (98-107); Globulin 2.6 g/dL (2.4-3.5); Glucose 208 mg/dL (70-105); Magnesium 1.8 mg/dL (1.6-2.6); Osmolality,Calculated 290 (280-300); Phosphorous 3.4 mg/dL (2.7-4.5); Potassium 3.7 mEq/L (3.5-5.1); Sodium 133 mEq/L (136-145); eGFR For Non-African Americans 50 (> 60)
--- NOTE | 2018-02-05 06:55 | Cardiothoracic Consult Note ---
Date of Encounter: 02/05/18 Time of Encounter: 06:48 Assessment and Plan (1) Non-STEMI (non-ST elevated myocardial infarction) Current Visit: Yes Status: Acute The patient is an 82-year-old type II diabetic, hypertensive man with hypercholesterolemia who was transferred to [facility] from the [facility] with a diagnosis of an acute NSTEMI and atrial fibrillation with a controlled rate. The patient has had progressive shortness of breath, dyspnea exertion, and a nonproductive cough for several weeks, as well as exertional, nonradiating substernal chest pain and lower extremity claudication. Cardiac catheterization performed yesterday revealed severe 3 vessel CAD, an LVEF 35%, and moderate mitral regurgitation. He has been recommended for possible CABG and modified Maze procedure. Unfortunately, the coronary arteries or small and diffusely diseased, particularly the distal LAD and the PDA. The OM1 branch appears to be the only suitable bypass target. The echocardiogram report is not available at the time of this dictation. The STS risk calculator reveals an operative mortality risk 6.33%, deep sternal wound infection risk 0.74%, permanent stroke risk 2.26%, renal failure risk 8.38 %, and reoperation risk 12.14%. The risk percentages could increase based upon the echocardiogram results. I do not believe that the patient is a good operative candidate and should be treated medically. If the patient wishes to pursue operative intervention, should be transferred to a tertiary Medical Center for further evaluation. The assessment and plan as outlined above was discussed with the patient and/or family members who expressed understanding and agreement. All questions were answered. - History of Present Illness Consult date: 02/04/18 Requesting physician: Karina Good Consult reason: CABG evaluation Chief complaint: Exertional substernal chest pain History of present illness: Mr. Marshall is a 82 year old type II diabetic, hypertensive man with hypercholesterolemia who was transferred to [facility] from the [facility] with a diagnosis of an acute NSTEMI. The patient and his developed a cough proximally 1 month ago and his was diagnosed with pneumonia. His from pneumonia approximately 3 weeks ago and the patient has had a persistent nonproductive cough. He also complains of progressive shortness of breath and dyspnea on exertion over the last several months, as well as exertional, nonradiating substernal chest tightness and lower extremity claudication which occurs after walking 50 yards. Yesterday, the patient went to the [facility] for evaluation of his cough symptoms. Blood chemistries performed during this evaluation revealed an elevated troponin I level. The patient was transferred to [facility] for further cardiac care. He was found to have atrial fibrillation with controlled rate. He underwent cardiac catheterization yesterday was found to have severe 3 vessel CAD, an LVEF 35%, and moderate mitral regurgitation. In particular, the patient has a 50% distal left main lesion, an 80% proximal LAD lesion, a 95% mid LAD lesion, a diffusely diseased distal LAD, a completely occluded proximal LCx, a 90% proximal OM1 lesion which fills via left to left collaterals, and a completely occluded proximal RCA which fills distally via left to left collaterals. The LAD and PDA are small, diffusely diseased vessels. I have been asked to evaluate the patient for possible high risk combined CABG and modified Maze procedure. Past Med Surg Social Fam HX - Past Medical History Medical history: coronary artery disease, diabetes, hyperlipidemia, hypertension , peripheral artery disease Psychiatric history: no psych history - Past Surgical History Surgical History: no surgical history - Social History Smoking Status: Former smoker Packs per day: quit 1973 Smokeless Tobacco Status: No Alcohol use: rarely Drug use: none Occupational status: retired Current living situation: Home - Independent Activity Level: Independent ambulation Recent Out of Country Travel Within the Last 8 Weeks: No Exposure or Possible Exposure to Illness During Travel: No - Family History Mother Living Status: Age at : 93 Cause of : stroke Hx Family Cardiac Disorders: Yes (Htn) Father Living Status: Age at : 81 Cause of : Stroke Hx Family Cancer: Yes (Bladder ca) Medications and Allergies Aspirin [Adult Aspirin] 81 mg PO DAILY 02/04/18 [History] Atorvastatin [Lipitor] 10 mg PO HS 02/04/18 [History] Losartan [Cozaar] 25 mg PO DAILY 02/04/18 [History] Metoprolol Succinate [Toprol Xl] 50 mg PO DAILY 02/04/18 [History] 3 Allergy/AdvReac Type Severity Reaction Status Date / Time Penicillins [PCN] Allergy Rash Verified 02/04/18 12:38 All Systems Review: The remainder of the systems were reviewed and are negative Physical Examination Vital Signs, Last 4 Hours Temp Pulse Resp BP Pulse Ox 02/05/18 03:36 97.9 F 106 16 145/79 91 General: Conversant, No Apparent Distress Neck: No JVD, Normal carotid pulses Cardiac: Normal S1 and S2, Other (Irregular rate and rhythm, 2/6 systolic ejection murmur heard in the apex) Lungs: Other (Wheezes and rhonchi bilaterally) Neuro: Alert and responsive, No focal deficits noted, Motor nerves intact, Sensory nerves intact Vascular: Normal capillary refill Skin: No rashes noted on visualized skin Musculoskeletal: No Chest Wall Tenderness Extremities: No Clubbing, No Cyanosis, No Edema Results 02/05/18 03:07 02/05/18 03:07 Lab Results, Last 24 hours 02/04/18 02/04/18 02/05/18 15:33 15:33 03:07 WBC 10.6 Hgb 13.5 Hct 39.9 Plt Count 202 INR APTT Sodium Potassium Chloride Carbon Dioxide BUN Creatinine Glucose Calcium Magnesium Total Bilirubin AST ALT Alkaline Phosphatase Troponin I 5.21 H* B-Natriuretic Peptide 1505 H 02/05/18 02/05/18 03:07 03:07 WBC Hgb Hct Plt Count INR 1.3 APTT 26.7 Sodium 133 L Potassium 3.7 Chloride 101 Carbon Dioxide 25 BUN 34 H Creatinine 1.37 H Glucose 208 H Calcium 9.0 Magnesium 1.8 Total Bilirubin 0.8 AST 20 ALT 32 Alkaline Phosphatase 59 Troponin I B-Natriuretic Peptide - Imaging Chest Xray: image reviewed (Mild cardiomegaly. Bilateral airspace and interstitial opacities consistent with pulmonary edema.) Consult Discharge Plan - Plan [facility]errals: [facility] [Primary Care Provider] -
[2018-02-05] MEDS: Metoprolol XL (24 HR) Succ 50 MG TAB.ER.24H PO SCH (09:13)
[2018-02-05] MEDS: Aspirin Enteric Coated 81 MG Tablet PO SCH (09:13)
[2018-02-05] MEDS: Insulin LISPRO 300 UNITS/3 ML VIAL SQ SCH ×4 (09:14→20:04)
--- NOTE | 2018-02-05 09:14 | Internal Med Progress Note ---
<CarrnigtonDelbert S - Last Filed: 02/05/18 11:32> Hospitalist Progress Note - Encounter Date of Encounter: 02/05/18 Time of Encounter: 09:06 - Subjective Interval History: Mr. Marshall is a 82 year old male with PMH of T2DM, HDL, HTN, PAD. -came to ER yesterday with complaints of increasing SOB and cough -chronically SOB for years but over the last month the pt has had increased SOB from his baseline -He also c/o cough, which has been worse the last few nights -He has been coughing so hard that his ribs hurt at times. The patient has no complaints of chest pain. He has had some fevers/chills over the last few days. No c/o radiating pain to jaw or left arm. The patient states he has never had a heart attack before, no previous cardiax hx is on file. He denies having a LHC in the past, no stents, and had a stress test at one point that was negative for ischemia/infarct. The pt states that the most active thing he does is walk to the mailbox, which he does without difficulty. He has been having increasing claudication with long distances, however, and has been taking more of his PAD medications although he doesn't really seem to know what medications he uses. He was admitted for pneumonia and NSTEMI, received ASA in the ED and had a troponin of 5. -CXR showed pulmonary edema, cannot r/o multifocal infxn -LHC showed severe 3 vessel dz, recommended CABG vs aggressive medical management Pt still has c/o SOB and cough this morning. He denies chest pain, N/V/D, abd pain. He has minimal pain where LHC was done, no hematoma. - Exam Vitals: Temp Pulse Resp BP Pulse Ox 97.9 F 92 16 116/72 91 02/05/18 07:19 02/05/18 07:19 02/05/18 07:19 02/05/18 07:19 02/05/18 07:19 Exam: General - AOx3, NAD Cardio - RRR, s1s2, CTA , no mrg lungs - CTAB, no wheeze abd - NTND, no mass, no rebound or guarding skin - intact, no rash, no hematoma noted over right femoral aa extremities - no edema, hairless legs B/L 2/2 PAD psych - appropriate affect - Assessment and Plan (1) Non-STEMI (non-ST elevated myocardial infarction) Current Visit: Yes Status: Acute Assessment and Plan: Pt is a transfer from [facility] -had a troponin of 5 on admission -has been having increasing SOB from baseline with cough In the ER, he is started on a heparin drip and cardiology is planning to do a LHC on him later today -ASA 325mg given -stat CXR showed cardiomeglay with pulmonary edema, cannot exclude multifocal infxn -troponin of 5.21 -BNP 1505 02/04/18 s/p LHC -severe three vessel CAD -the left ventricle is normal and has severely abnormal contractility EF 35% -suggestions include - possible CABG, optimal medical tx of pt disease, aggressive RF modification Dr Wu from cardiothoracic -the coronary arteries or small and diffusely diseased, particularly the distal LAD and the PDA. The OM1 branch appears to be the only suitable bypass target. -Dr Wu doesn't feel the pt should be treated with CABG ECHO Technically sub-optimal due to lack of LV contrast. Atrial fibrillation. LVEF grossly 35%. Severe segmental left ventricular systolic dysfunction. Normal LV chamber size, wall thickness. Normal RV size. Mild RV hypokinesis. Moderately dilated LA. Mildly dilated RA. Mild-moderate MR and TR. Severe pulmonary hypertension. Estimated RVSP 77 mmHg, RA pressure is 15 mmHg. Recommend LV contrast. Plan: -UBALDO score of 4 -heparin drip discontinued -cardiac diet -continue Artorvastatin 20mg at bedtime, Losartan 25mg per day, metoprolol 100mg 1/2 tablet everyday, ASA 81mg -nitroglycerin 0.4mg q5min prn chest pain -RACHEL pending -cardiology consulted, appreciate recommendations -add SQ heparin 5000U for DVT prophylaxis (2) Hypertension Current Visit: No Status: Chronic Assessment and Plan: BP 116/72 -adequate control -Losartan 25mg daily, Lopressor, HCTZ 25mg everyday (3) Hyperlipidemia Current Visit: No Status: Chronic Assessment and Plan: Atorvastatin 20 mg at bedtime. -lipid panel - TG 102, cholesterol 122, LDL 73, VLDL 20, HDL 29 -can go up to 40-80mg if ok with cardiology -cardiac diet (4) Peripheral vascular disease Current Visit: Yes Status: Chronic Assessment and Plan: RACHEL's pending (5) Diabetes mellitus Current Visit: No Status: Acute Assessment and Plan: Low dose sliding scale -hold metformin (6) Atrial fibrillation Current Visit: Yes Status: Acute Assessment and Plan: EKG showed a fib in the ER -HR 92 - Metoprolol 100 mg one half tablet every day. Aspirin 81 mg (7) DVT prophylaxis Current Visit: No Status: Acute Assessment and Plan: sq heparin (8) Pneumonia Current Visit: Yes Status: Acute Assessment and Plan: CXR shows pulmonary edema and cannot exclude multifocal disease -pt has cough nonproductive and has been having increasing SOB from baseline -denies fevers/chills Lactic acid 2.3 Plan: -blood cultures -sputum culture -legionella and strep pneumo antigen -Mycoplasma IgM antigen -respiratory panel -will start on 750mg PO Levaquin (day 2) - Time Spent with Patient Total time spent is greater than 50% in coordination of care (as documented) at patient's floor/unit and/or counseling patient: less than 15 minutes Plan of Care Discussed with: patient Internal Medicine: Result - Labs CBC & Chem 7: 02/05/18 03:07 02/05/18 03:07 Labs: Short CBC 02/05/18 Range/Units 03:07 WBC 10.6 (4.3-11.1) K/mcL Hgb 13.5 (12.9-16.9) g/dL Hct 39.9 (37.5-50.1) % Plt Count 202 (140-400) K/mcL Neutrophils # 8.0 (1.6-8.9) K/mcL BMP 02/05/18 03:07 Sodium 133 L Potassium 3.7 Chloride 101 Carbon Dioxide 25 BUN 34 H Creatinine 1.37 H Glucose 208 H Calcium 9.0 Cardiac Enzymes 02/04/18 Range/Units 15:33 Troponin I 5.21 H* (< 0.04) ng/mL Liver Function 02/05/18 Range/Units 03:07 Total Bilirubin 0.8 (0.3-1.0) mg/dL AST 20 (13-39) Units/L ALT 32 (7-52) Units/L Alkaline Phosphatase 59 (34-104) Units/L Albumin 3.4 L (3.5-5.7) g/dL - ABG Interpretation ABG results: PT/INR, D-dimer PT 14.7 Seconds (9.4-12.1) H 02/05/18 03:07 Consult Discharge Plan - Plan [facility]errals: [facility] [Primary Care Provider] - <Krystle Alexander - Last Filed: 02/05/18 16:22> Hospitalist Progress Note - Encounter Date of Encounter: 02/05/18 - Exam Vitals: Temp Pulse Resp BP Pulse Ox 98.1 F 97 16 127/65 95 02/05/18 11:55 02/05/18 11:55 02/05/18 11:55 02/05/18 11:55 02/05/18 11:55 - Assessment and Plan (1) Non-STEMI (non-ST elevated myocardial infarction) Current Visit: Yes Status: Acute (2) Atrial fibrillation Current Visit: Yes Status: Acute (3) Hypertension Current Visit: No Status: Chronic (4) Hyperlipidemia Current Visit: No Status: Chronic (5) Peripheral vascular disease Current Visit: Yes Status: Chronic (6) Diabetes mellitus Current Visit: No Status: Acute (7) DVT prophylaxis Current Visit: No Status: Acute (8) Pneumonia Current Visit: Yes Status: Acute - Time Spent with Patient Total time spent is greater than 50% in coordination of care (as documented) at patient's floor/unit and/or counseling patient: Internal Medicine: Result - Labs CBC & Chem 7: 02/05/18 03:07 02/05/18 03:07 Labs: Short CBC 02/05/18 Range/Units 03:07 WBC 10.6 (4.3-11.1) K/mcL Hgb 13.5 (12.9-16.9) g/dL Hct 39.9 (37.5-50.1) % Plt Count 202 (140-400) K/mcL Neutrophils # 8.0 (1.6-8.9) K/mcL BMP 02/05/18 03:07 Sodium 133 L Potassium 3.7 Chloride 101 Carbon Dioxide 25 BUN 34 H Creatinine 1.37 H Glucose 208 H Calcium 9.0 Cardiac Enzymes 02/04/18 Range/Units 15:33 Troponin I 5.21 H* (< 0.04) ng/mL Liver Function 02/05/18 Range/Units 03:07 Total Bilirubin 0.8 (0.3-1.0) mg/dL AST 20 (13-39) Units/L ALT 32 (7-52) Units/L Alkaline Phosphatase 59 (34-104) Units/L Albumin 3.4 L (3.5-5.7) g/dL - ABG Interpretation ABG results: PT/INR, D-dimer PT 14.7 Seconds (9.4-12.1) H 02/05/18 03:07 - Impressions Impressions Echocardiogram 02/05/18 13:49 Impressions: Technically sub-optimal due to lack of LV contrast. Atrial fibrillation. LVEF grossly 35%. Severe segmental left ventricular systolic dysfunction. Normal LV chamber size, wall thickness. Normal RV size. Mild RV hypokinesis. Moderately dilated LA. Mildly dilated RA. Mild-moderate MR and TR. Severe pulmonary hypertension. Estimated RVSP 77 mmHg, RA pressure is 15 mmHg. Recommend LV contrast. Left Ventricular Wall Motion: Rest Echo Findings The apex, basal inferior, apical septal and apical lateral almanza were hypokinetic. The apical inferior, mid inferior, mid inferior lateral and basal inferior lateral almanza were akinetic. All other wall segments showed normal motion. Findings: Study Quality * Technically sub-optimal due to lack of LV contrast ECG Findings * Atrial fibrillation. Left Ventricle * LVEF grossly 35%, need LV contrast. * Normal LV chamber size, wall thickness. * Severe segmental left ventricular systolic dysfunction. * Moderate left ventricular diastolic dysfunction. * Definity echo contrast was not used. Right Ventricle * Normal right ventricular size. * Mild right ventricular hypokinesis. Left Atrium * Moderately dilated left atrium. Right Atrium * Mildly dilated right atrium. Interatrial Septum * Interatrial septum not well evaluated. Aortic Valve * Trileaflet aortic valve. * Mildly calcified aortic valve leaflets. * No aortic stenosis. Mitral Valve * Mild-moderate mitral regurgitation. Tricuspid Valve * Mild-moderate tricuspid regurgitation. * Estimated RVSP is 77 mmHg. * Estimated RA pressure is 15 mmHg. * Severe pulmonary hypertension. Pulmonic Valve * Pulmonic valve not well visualized. * Mild pulmonic regurgitation. Aorta * Normally sized aortic root. Pericardium * The pericardium appears normal. IVC * The IVC is dilated. * < 50% respiratory change. - Attending Attestation I examined this patient and my medical decision-making was reviewed with the Resident Physician Dr. Carrington. I agree with the documented findings, disposition and treatment plan as described except to the extent set forth below. Mr. Marshall is a 82 year old male with PMH of T2DM, HDL, HTN, PAD. He presented to the ER with complaints of increasing SOB and cough for 3-4 weeks. He denied any CP. He went to [place] ER, where his initial Trop was elevated at 5.7, pt was transferred here for further care. His CXR showed multi focal infection, and pulm edema. He was admitted in the hospital and started him on Heparin gtt. He just went for LHC, which showed severe multi vessel CAD. Card recommend CTS consult for CABG. He denied any CP / SOB. Feels better today Gen: A, A, O x 3 Chest: Diminished BS b/l, no ronchi Heart: S1S2+ Afib, No murmurs 1. Acute PNA - bacterial Improving cont empirical abx Levaquin Duonbe PRN 2. Acute NSTEMI with severe multi vessel CAD s/p LHC showed severe three vessel disease, LVEF 35% evaluated by CTS, not a great candidate for CABG Recommend aggressive medical and PCI He is scheduled for possible PCI to LAD and Lcx in AM Avoid any nephro toxic meds no need of IVF due to his systolic CHF cont Heparin gtt for now ASA+ Statin + BB 3. Acute systolic CHF exacerbation LVEF 35% Hold on diuretics now due to Pneumonia and Recurrent LHC with contrast Avoid any nephro toxic meds 4. New onset afib rate controlled on Metoprolol resumed heparin gtt for now will talk to pt about other NOAC options when he is ready to go home <Delbert Carrington S - Last Filed: 02/05/18 11:32> (2) Hypertension Qualifiers: Hypertension type: essential hypertension Qualified Code(s): I10 - Essential (primary) hypertension (3) Hyperlipidemia Qualifiers: Hyperlipidemia type: unspecified Qualified Code(s): E78.5 - Hyperlipidemia, unspecified (5) Diabetes mellitus Qualifiers: Diabetes mellitus type: type 2 Diabetes mellitus intermediate project manager insulin use: without intermediate project manager use Diabetes mellitus complication status: with unspecified complications Qualified Code(s): E11.8 - Type 2 diabetes mellitus with unspecified complications (6) Atrial fibrillation Qualifiers: Atrial fibrillation type: unspecified Qualified Code(s): I48.91 - Unspecified atrial fibrillation (8) Pneumonia Qualifiers: Pneumonia type: due to unspecified organism Laterality: unspecified laterality Lung location: unspecified part of lung Qualified Code(s): J18.9 - Pneumonia, unspecified organism <Krystle Alexander - Last Filed: 02/05/18 16:22> (2) Atrial fibrillation Qualifiers: Atrial fibrillation type: unspecified Qualified Code(s): I48.91 - Unspecified atrial fibrillation (3) Hypertension Qualifiers: Hypertension type: essential hypertension Qualified Code(s): I10 - Essential (primary) hypertension (4) Hyperlipidemia Qualifiers: Hyperlipidemia type: unspecified Qualified Code(s): E78.5 - Hyperlipidemia, unspecified (6) Diabetes mellitus Qualifiers: Diabetes mellitus type: type 2 Diabetes mellitus intermediate project manager insulin use: without [facility] use Diabetes mellitus complication status: with unspecified complications Qualified Code(s): E11.8 - Type 2 diabetes mellitus with unspecified complications (8) Pneumonia Qualifiers: Pneumonia type: due to unspecified organism Laterality: unspecified laterality Lung location: unspecified part of lung Qualified Code(s): J18.9 - Pneumonia, unspecified organism
[2018-02-05] MEDS ORDERED: *HR* Heparin 5,000 UNIT/ML VIAL SQ SCH (11:15)
--- NOTE | 2018-02-05 14:08 | Cardiology Progress Note ---
Date of Encounter: 02/05/18 Time of Encounter: 14:22 Assessment and Plan (1) Non-STEMI (non-ST elevated myocardial infarction) Current Visit: Yes Status: Acute Patient presented to the [place] with ongoing cough and shortness of breath for 1+ month. Initial troponin 5.79. Chest pain free upon exam. [facility] completed and showed severe three vessel CAD inclusing 50% stenosis LMCA, 80 % stenosis pLAD, 95% stenosis mLAD described as a long diffuse stenosis. 100% stenosis in the pLCx artery, and 100% stenosis RPDA (LIVE IN COMPANION). TTE shows EF 35%. There is mild to moderate MR. Severe PAH. CT surgery consulted and patient deemed not a good candidate for CABG. [facility] films reviewed with interventionalist. The LAD and Lcx artery would be amendable to PCI. Re-peat [facility] with PCI R/B/A reviewed with patient and family. They are considering. If kidney function is stable and patient agrees we will plan on PCI tomorrow. NPO after midnight. Asa, statin, and bb. Cardiac rehab consult. Will continue to follow. Assessment and POC reviewed with Dr. Scherer. (2) Atrial fibrillation Current Visit: Yes Status: Acute Newly discovered atrial fibrillation, chronicity unclear. Asymptomatic--no palpitations reported. Remains rate controlled, 70's-80's, continue home dose of Toprol XL. CHA2Ds Vasc= (4--HTN, DMII, age, suspected CAD); likely will require full AC. Discuss NOAC vs Coumadin pending hospital course. Qualifiers: Atrial fibrillation type: unspecified Qualified Code(s): I48.91 - Unspecified atrial fibrillation Discussion w patient/family: The assessment and plan as outlined above was discussed with the patient and/or family members who expressed understanding and agreement. All questions were answered. Thank you for involving us in the care of your patient. Please call with any questions. Subjective Principal diagnosis: NSTEMI Interval history: Mr. Marshall denies chest pain or SOB. Denies problems with right groin access. He is sitting in his chair with family at bedside. Denies further questions. Objective Vital Signs, Last 4 Hours Temp Pulse Resp BP Pulse Ox 02/05/18 11:55 98.1 F 97 16 127/65 95 General: Conversant, No Apparent Distress HEENT: Atraumatic, Normocephaly, Mucus Membranes Moist Neck: No JVD Cardiac: Reg Rate and Rhythm Lungs: Other (Respirations unlabored) Neuro: Alert and responsive, No focal deficits noted Skin: No rashes noted on visualized skin Extremities: Other (Normal color and warmth) Results 02/05/18 03:07 02/05/18 03:07 Lab Results 02/04/18 02/04/18 02/05/18 15:33 15:33 03:07 WBC 10.6 Hgb 13.5 Hct 39.9 Plt Count 202 INR APTT Sodium Potassium Chloride Carbon Dioxide BUN Creatinine Glucose Calcium Magnesium Total Bilirubin AST ALT Alkaline Phosphatase Troponin I 5.21 H* B-Natriuretic Peptide 1505 H 02/05/18 02/05/18 03:07 03:07 WBC Hgb Hct Plt Count INR 1.3 APTT 26.7 Sodium 133 L Potassium 3.7 Chloride 101 Carbon Dioxide 25 BUN 34 H Creatinine 1.37 H Glucose 208 H Calcium 9.0 Magnesium 1.8 Total Bilirubin 0.8 AST 20 ALT 32 Alkaline Phosphatase 59 Troponin I B-Natriuretic Peptide - Imaging and Cardiology Echo: report reviewed Cardiac cath: report reviewed - EKG Interpretation EKG results cardiology: personally reviewed Consult Discharge Plan - Plan [facility]errals: [facility] [Primary Care Provider] -
[2018-02-05] MEDS ORDERED: *HR* Heparin 5,000 UNIT/ML VIAL IVP PRN ×2 (16:12)
[2018-02-05] MEDS: Heparin 25,000 UNIT/500 ML D5W 25,000 UNIT/500 ML BAG IVC SCH (17:05)
[2018-02-05 17:14] LABS: Hematocrit 40.5 % (37.5-50.1); Hemoglobin 13.8 g/dL (12.9-16.9); Mean Corpuscular HGB Conc 34.1 g/dL (31.6-35.5); Mean Corpuscular Hemoglobin 33.1 pg (28.0-33.3); Mean Corpuscular Volume 97.1 fL (83.0-100.0); Mean Platelet Volume 11.6 fL (9.4-12.4); Platelet Count 230 K/mcL (140-400); Red Blood Count 4.17 M/mcL (4.19-5.50); Red Cell Distribution Width 13.4 % (11.5-14.5)
[2018-02-05 17:18] LABS: Heparin anti-factor XA UFH 0.03 IU/mL (0.30-0.70); INR 1.3; Prothrombin Time 14.8 Seconds (9.4-12.1)
[2018-02-06] MEDS ORDERED: 0.9 % Sodium Chloride 1,000 ML IVC SCH (07:45)
[2018-02-06 07:48] LABS: Basophils % 0.4 %; Eosinophils # 0.1 K/mcL (0.0-0.6); Eosinophils % 0.9 %; Hematocrit 37.8 % (37.5-50.1); Hemoglobin 12.4 g/dL (12.9-16.9); Immature Granulocytes % 0.5 % (0-4); Lymphocytes # 1.4 K/mcL (0.6-4.6); Lymphocytes % 12.6 %; Mean Corpuscular HGB Conc 32.8 g/dL (31.6-35.5); Mean Corpuscular Hemoglobin 31.9 pg (28.0-33.3); Mean Corpuscular Volume 97.2 fL (83.0-100.0); Mean Platelet Volume 11.3 fL (9.4-12.4); Monocytes % 9.5 %; Neutrophils # 8.3 K/mcL (1.6-8.9); Platelet Count 210 K/mcL (140-400); Red Blood Count 3.89 M/mcL (4.19-5.50); Red Cell Distribution Width 13.6 % (11.5-14.5); Segmented Neutrophils % 76.1 %
[2018-02-06 08:00] LABS: INR 1.3; Prothrombin Time 14.5 Seconds (9.4-12.1)
[2018-02-06] MEDS: Insulin LISPRO 300 UNITS/3 ML VIAL SQ SCH ×4 (08:07→21:32)
[2018-02-06] MEDS: Aspirin Enteric Coated 81 MG Tablet PO SCH (08:08)
[2018-02-06] MEDS: Metoprolol XL (24 HR) Succ 50 MG TAB.ER.24H PO SCH (08:08)
[2018-02-06 08:09] LABS: Alanine Aminotransferase 29 Units/L (7-52); Albumin 3.3 g/dL (3.5-5.7); Albumin/Globulin Ratio 1.3 (1.1-2.2); Alkaline Phosphatase 52 Units/L (34-104); Aspartate Amino Transferase 23 Units/L (13-39); BUN/Creatinine Ratio 25 (6-26); Blood Urea Nitrogen 32 mg/dL (8-23); Carbon Dioxide 24 mEq/L (23-29); Chloride 101 mEq/L (98-107); Globulin 2.6 g/dL (2.4-3.5); Glucose 199 mg/dL (70-105); Osmolality,Calculated 292 (280-300); Sodium 135 mEq/L (136-145); Total Protein 5.9 g/dL (6.4-8.9); eGFR For Non-African Americans 54 (> 60)
--- NOTE | 2018-02-06 08:15 | Internal Med Progress Note ---
<Delbert Carrington S - Last Filed: 02/06/18 11:02> Hospitalist Progress Note - Encounter Date of Encounter: 02/06/18 Time of Encounter: 08:00 - Subjective Interval History: Mr. Marshall is a 82 year old male with PMH of T2DM, HDL, HTN, PAD. -came to ER yesterday with complaints of increasing SOB and cough -chronically SOB for years but over the last month the pt has had increased SOB from his baseline -He also c/o cough, which has been worse the last few nights -He has been coughing so hard that his ribs hurt at times. The patient has no complaints of chest pain. He has had some fevers/chills over the last few days. No c/o radiating pain to jaw or left arm. The patient states he has never had a heart attack before, no previous cardiax hx is on file. He denies having a LHC in the past, no stents, and had a stress test at one point that was negative for ischemia/infarct. The pt states that the most active thing he does is walk to the mailbox, which he does without difficulty. He has been having increasing claudication with long distances, however, and has been taking more of his PAD medications although he doesn't really seem to know what medications he uses. He was admitted for pneumonia and NSTEMI, received ASA in the ED and had a troponin of 5. -CXR showed pulmonary edema, cannot r/o multifocal infxn -LHC showed severe 3 vessel dz, recommended CABG vs aggressive medical management Pt has c/o cough this morning, SOB has improved immensely. He denies chest pain , N/V/D, abd pain. -no hematoma where LHC was done over right femoral aa -pt to go to mobile lab technician today for PCI of LAD/LCx - Exam Vitals: Temp Pulse Resp BP Pulse Ox 98.7 F 98 16 119/67 92 02/06/18 07:10 02/06/18 07:10 02/06/18 07:10 02/06/18 07:10 02/06/18 07:10 Exam: General - AOx3, NAD Cardio - RRR, s1s2, CTA , no mrg lungs - CTAB, no wheeze abd - NTND, no mass, no rebound or guarding skin - intact, no rash, no hematoma noted over right femoral aa extremities - no edema, hairless legs B/L 2/2 PAD psych - appropriate affect - Assessment and Plan (1) Non-STEMI (non-ST elevated myocardial infarction) Current Visit: Yes Status: Acute Assessment and Plan: Pt is a transfer from [facility] -had a troponin of 5 on admission -has been having increasing SOB from baseline with cough In the ER, he is started on a heparin drip and cardiology is planning to do a LHC on him later today -ASA 325mg given -stat CXR showed cardiomeglay with pulmonary edema, cannot exclude multifocal infxn -troponin of 5.21 -BNP 1505 02/04/18 s/p LHC -severe three vessel CAD -the left ventricle is normal and has severely abnormal contractility EF 35% -suggestions include - possible CABG, optimal medical tx of pt disease, aggressive RF modification Dr Wu from cardiothoracic -the coronary arteries or small and diffusely diseased, particularly the distal LAD and the PDA. The OM1 branch appears to be the only suitable bypass target. -Dr Wu doesn't feel the pt should be treated with CABG ECHO Technically sub-optimal due to lack of LV contrast. Atrial fibrillation. LVEF grossly 35%. Severe segmental left ventricular systolic dysfunction. Normal LV chamber size, wall thickness. Normal RV size. Mild RV hypokinesis. Moderately dilated LA. Mildly dilated RA. Mild-moderate MR and TR. Severe pulmonary hypertension. Estimated RVSP 77 mmHg, RA pressure is 15 mmHg. Recommend LV contrast. Kidney fxn has improved since yesterday -Creatinine is 1.27 today, no baseline to compare it to -BUN is 32 today Plan: -UBALDO score of 4 -heparin drip as per protocol -NPO now for LHC, give Mucomyst 600mg PO BID x 4 doses total -cardiac diet after cath -continue Artorvastatin 20mg at bedtime, Losartan 25mg per day, metoprolol 100mg 1/2 tablet everyday, ASA 81mg -nitroglycerin 0.4mg q5min prn chest pain -cardiology consulted, appreciate recommendations ---> they will consult cardiac rehab -add SQ heparin 5000U for DVT prophylaxis -pt to go for repeat LHC today, LAD and LCx are amendable to PCI -cardiology will discuss anticoagulation NOAC vs coumadin pending hospital course CHADVASc of 4 (htn, T2DM, >75yo [2pts], suspected CAD) (2) Hypertension Current Visit: No Status: Chronic Assessment and Plan: BP 119/67 -adequate control -Losartan 25mg daily, Lopressor, HCTZ 25mg everyday (3) Hyperlipidemia Current Visit: No Status: Chronic Assessment and Plan: Atorvastatin 20 mg at bedtime. -lipid panel - TG 102, cholesterol 122, LDL 73, VLDL 20, HDL 29 -can go up to 40-80mg if ok with cardiology -cardiac diet (4) Peripheral vascular disease Current Visit: Yes Status: Chronic Assessment and Plan: Right RACHEL and waveforms are consisent with mild disease -riht RACHEL 0.88 Left RACHEL and waveforms are consistent with moderate dz -Left RACHEL 0.78 recommendations from sonograpger: -risk factor reduction -repeat study in 1 yr (5) Diabetes mellitus Current Visit: No Status: Acute Assessment and Plan: Low dose sliding scale -hold metformin (6) Atrial fibrillation Current Visit: Yes Status: Acute Assessment and Plan: EKG showed a fib in the ER -HR 92 - Metoprolol 100 mg one half tablet every day. Aspirin 81 mg -CHADVASc of 4, cardiology to give recommendations about NOAC vs Coumadin (7) DVT prophylaxis Current Visit: No Status: Acute Assessment and Plan: heparin drip as per protocol (8) Pneumonia Current Visit: Yes Status: Acute Assessment and Plan: CXR shows pulmonary edema and cannot exclude multifocal disease -pt has cough nonproductive and has been having increasing SOB from baseline -denies fevers/chills Lactic acid 2.3 Plan: -blood cultures -sputum culture -legionella and strep pneumo antigen pending -Mycoplasma IgM antigen -respiratory panel pending -will start on 750mg PO Levaquin (day 3) - Time Spent with Patient Total time spent is greater than 50% in coordination of care (as documented) at patient's floor/unit and/or counseling patient: less than 15 minutes Plan of Care Discussed with: patient Internal Medicine: Result - Labs CBC & Chem 7: 02/06/18 07:26 02/06/18 07:26 Labs: Short CBC 02/05/18 02/06/18 Range/Units 16:36 07:26 WBC 10.9 10.9 (4.3-11.1) K/mcL Hgb 13.8 12.4 L (12.9-16.9) g/dL Hct 40.5 37.8 (37.5-50.1) % Plt Count 230 210 (140-400) K/mcL Neutrophils # 8.3 (1.6-8.9) K/mcL BMP 02/06/18 07:26 Sodium 135 L Potassium 4.0 Chloride 101 Carbon Dioxide 24 BUN 32 H Creatinine 1.27 Glucose 199 H Calcium 9.0 Liver Function 02/06/18 Range/Units 07:26 Total Bilirubin 1.0 (0.3-1.0) mg/dL AST 23 (13-39) Units/L ALT 29 (7-52) Units/L Alkaline Phosphatase 52 (34-104) Units/L Albumin 3.3 L (3.5-5.7) g/dL - ABG Interpretation ABG results: PT/INR, D-dimer PT 14.5 Seconds (9.4-12.1) H 02/06/18 07:26 - Impressions Impressions Echocardiogram 02/05/18 13:49 Impressions: Technically sub-optimal due to lack of LV contrast. Atrial fibrillation. LVEF grossly 35%. Severe segmental left ventricular systolic dysfunction. Normal LV chamber size, wall thickness. Normal RV size. Mild RV hypokinesis. Moderately dilated LA. Mildly dilated RA. Mild-moderate MR and TR. Severe pulmonary hypertension. Estimated RVSP 77 mmHg, RA pressure is 15 mmHg. Recommend LV contrast. Left Ventricular Wall Motion: Rest Echo Findings The apex, basal inferior, apical septal and apical lateral almanza were hypokinetic. The apical inferior, mid inferior, mid inferior lateral and basal inferior lateral almanza were akinetic. All other wall segments showed normal motion. Findings: Study Quality * Technically sub-optimal due to lack of LV contrast ECG Findings * Atrial fibrillation. Left Ventricle * LVEF grossly 35%, need LV contrast. * Normal LV chamber size, wall thickness. * Severe segmental left ventricular systolic dysfunction. * Moderate left ventricular diastolic dysfunction. * Definity echo contrast was not used. Right Ventricle * Normal right ventricular size. * Mild right ventricular hypokinesis. Left Atrium * Moderately dilated left atrium. Right Atrium * Mildly dilated right atrium. Interatrial Septum * Interatrial septum not well evaluated. Aortic Valve * Trileaflet aortic valve. * Mildly calcified aortic valve leaflets. * No aortic stenosis. Mitral Valve * Mild-moderate mitral regurgitation. Tricuspid Valve * Mild-moderate tricuspid regurgitation. * Estimated RVSP is 77 mmHg. * Estimated RA pressure is 15 mmHg. * Severe pulmonary hypertension. Pulmonic Valve * Pulmonic valve not well visualized. * Mild pulmonic regurgitation. Aorta * Normally sized aortic root. Pericardium * The pericardium appears normal. IVC * The IVC is dilated. * < 50% respiratory change. - VTE Documentation of Mechanical Device: Graduated compression elastic hosiery Consult Discharge Plan - Plan [facility]errals: [facility]Primary Care Provider[facility] - <Krystle Alexander - Last Filed: 02/06/18 17:23> Hospitalist Progress Note - Encounter Date of Encounter: 02/06/18 - Exam Vitals: Temp Pulse Resp BP Pulse Ox 98.8 F 88 18 114/48 90 02/06/18 16:41 02/06/18 16:41 02/06/18 16:41 02/06/18 16:41 02/06/18 16:41 - Assessment and Plan (1) Non-STEMI (non-ST elevated myocardial infarction) Current Visit: Yes Status: Acute (2) Atrial fibrillation Current Visit: Yes Status: Acute (3) Hypertension Current Visit: No Status: Chronic (4) Hyperlipidemia Current Visit: No Status: Chronic (5) Peripheral vascular disease Current Visit: Yes Status: Chronic (6) Diabetes mellitus Current Visit: No Status: Acute (7) DVT prophylaxis Current Visit: No Status: Acute (8) Pneumonia Current Visit: Yes Status: Acute - Time Spent with Patient Total time spent is greater than 50% in coordination of care (as documented) at patient's floor/unit and/or counseling patient: Internal Medicine: Result - Labs CBC & Chem 7: 02/06/18 07:26 02/06/18 07:26 Labs: Short CBC 02/06/18 Range/Units 07:26 WBC 10.9 (4.3-11.1) K/mcL Hgb 12.4 L (12.9-16.9) g/dL Hct 37.8 (37.5-50.1) % Plt Count 210 (140-400) K/mcL Neutrophils # 8.3 (1.6-8.9) K/mcL BMP 02/06/18 07:26 Sodium 135 L Potassium 4.0 Chloride 101 Carbon Dioxide 24 BUN 32 H Creatinine 1.27 Glucose 199 H Calcium 9.0 Liver Function 02/06/18 Range/Units 07:26 Total Bilirubin 1.0 (0.3-1.0) mg/dL AST 23 (13-39) Units/L ALT 29 (7-52) Units/L Alkaline Phosphatase 52 (34-104) Units/L Albumin 3.3 L (3.5-5.7) g/dL - ABG Interpretation ABG results: PT/INR, D-dimer PT 14.5 Seconds (9.4-12.1) H 02/06/18 07:26 - Attending Attestation I examined this patient and my medical decision-making was reviewed with the Resident Physician Dr. Carrington. I agree with the documented findings, disposition and treatment plan as described except to the extent set forth below. Mr. Marshall is a 82 year old male with PMH of T2DM, HDL, HTN, PAD. He presented to the ER with complaints of increasing SOB and cough for 3-4 weeks. He denied any CP. He went to [place] ER, where his initial Trop was elevated at 5.7, pt was transferred here for further care. His CXR showed multi focal infection, and pulm edema. He was admitted in the hospital and started him on Heparin gtt. He just went for LHC, which showed severe multi vessel CAD. Card recommend CTS consult for CABG. He denied any CP / SOB. Feels better today Gen: A, A, O x 3 Chest: Diminished BS b/l, no ronchi Heart: S1S2+ Afib, No murmurs 1. Acute PNA - bacterial Improving cont empirical abx Levaquin Duonbe PRN 2. Acute NSTEMI with severe multi vessel CAD s/p LHC showed severe three vessel disease, LVEF 35% evaluated by CTS, not a great candidate for CABG Recommend aggressive medical and PCI He is scheduled for possible PCI to LAD and Lcx today Avoid any nephro toxic meds no need of IVF due to his systolic CHF cont Heparin gtt for now ASA+ Statin + BB 3. Acute systolic CHF exacerbation LVEF 35% Hold on diuretics now due to Pneumonia and Recurrent LHC with contrast Avoid any nephro toxic meds 4. New onset afib rate controlled on Metoprolol resumed heparin gtt for now Pt is ok to go on NOAC.. will start him on Xarelto upon d/c to home 5. CKD-2 Stable Cr started him on Mucormyst 600mg BID x 4 doses <Delbert Carrington S - Last Filed: 02/06/18 11:02> (2) Hypertension Qualifiers: Hypertension type: essential hypertension Qualified Code(s): I10 - Essential (primary) hypertension (3) Hyperlipidemia Qualifiers: Hyperlipidemia type: unspecified Qualified Code(s): E78.5 - Hyperlipidemia, unspecified (5) Diabetes mellitus Qualifiers: Diabetes mellitus type: type 2 Diabetes mellitus terminal gauger supervisor insulin use: without terminal gauger supervisor use Diabetes mellitus complication status: with unspecified complications Qualified Code(s): E11.8 - Type 2 diabetes mellitus with unspecified complications (6) Atrial fibrillation Qualifiers: Atrial fibrillation type: unspecified Qualified Code(s): I48.91 - Unspecified atrial fibrillation (8) Pneumonia Qualifiers: Pneumonia type: due to unspecified organism Laterality: unspecified laterality Lung location: unspecified part of lung Qualified Code(s): J18.9 - Pneumonia, unspecified organism <Krystle Alexander - Last Filed: 02/06/18 17:23> (2) Atrial fibrillation Qualifiers: Atrial fibrillation type: unspecified Qualified Code(s): I48.91 - Unspecified atrial fibrillation (3) Hypertension Qualifiers: Hypertension type: essential hypertension Qualified Code(s): I10 - Essential (primary) hypertension (4) Hyperlipidemia Qualifiers: Hyperlipidemia type: unspecified Qualified Code(s): E78.5 - Hyperlipidemia, unspecified (6) Diabetes mellitus Qualifiers: Diabetes mellitus type: type 2 Diabetes mellitus terminal gauger supervisor insulin use: without terminal gauger supervisor use Diabetes mellitus complication status: with unspecified complications Qualified Code(s): E11.8 - Type 2 diabetes mellitus with unspecified complications (8) Pneumonia Qualifiers: Pneumonia type: due to unspecified organism Laterality: unspecified laterality Lung location: unspecified part of lung Qualified Code(s): J18.9 - Pneumonia, unspecified organism
[2018-02-06] MEDS ORDERED: Spironolactone 25 MG TABLET PO SCH (09:00)
[2018-02-06] MEDS ORDERED: 0.9 % Sodium Chloride 1,000 ML ONE (10:51)
[2018-02-06] MEDS ORDERED: *HR* Heparin 10,000 UNIT/10 ML VIAL ONE (10:52)
[2018-02-06] MEDS ORDERED: ISOVUE-370 200 ML INFUS..BTL IV ONE (10:52)
[2018-02-06] MEDS ORDERED: Nitroglycerin 1,000 MCG/10 ML VIAL IV ONE (10:52)
[2018-02-06] MEDS ORDERED: Heparin 1,000 UNITS/500 mL 500 ML ONE (10:52)
[2018-02-06] MEDS ORDERED: *HR* Midazolam HCl 2 MG/2 ML VIAL ONE (11:02)
[2018-02-06] MEDS ORDERED: *HR* Bivalirudin 250 MG VIAL IVC ONE (11:04)
[2018-02-06] MEDS ORDERED: Furosemide 40 MG/4 ML VIAL IVP ONE (11:21)
[2018-02-06] MEDS: *HR* Acetylcysteine 20% 600 MG/3 ML ORAL SYRINGE PO SCH ×2 (12:21→19:35)
--- NOTE | 2018-02-06 13:40 | Cardiology Progress Note ---
Date of Encounter: 02/06/18 Time of Encounter: 13:38 Assessment and Plan (1) Non-STEMI (non-ST elevated myocardial infarction) Current Visit: Yes Status: Acute Patient presented to the [facility] with ongoing cough and shortness of breath for 1+ month. Initial troponin 5.79. Chest pain free upon exam. LHC completed and showed severe three vessel CAD inclusing 50% stenosis LMCA, 80 % stenosis pLAD, 95% stenosis mLAD described as a long diffuse stenosis. 100% stenosis in the pLCx artery, and 100% stenosis RPDA (AIR EXPORT AGENT). TTE shows EF 35%. There is mild to moderate MR. Severe PAH. CT surgery consulted and patient deemed not a good candidate for CABG. LHC films reviewed with interventionalist. The LAD and Lcx artery would be amendable to PCI. LHC cancelled today due to persistent cough and SOB. Discussed with Dr. Scherer, recommends continued treatment of pnuemonia. I will give IV lasix today and he should go home with maintenance lasix. He is recommended for out-pt LHC next week. Cardiology will coordinate. Continue asa, statin, and bb. We will load with plavix today and start 75 mg daily. Cardiac rehab consult. (2) Atrial fibrillation Current Visit: Yes Status: Acute Newly discovered atrial fibrillation, chronicity unclear. Asymptomatic--no palpitations reported. Remains rate controlled, 70's-80's, continue home dose of Toprol XL. CHA2Ds Vasc= (4--HTN, DMII, age, suspected CAD); Currently on heparin gtt. Xarelto covered by [facility], recommend starting at d/c with plan to hold 48 hours prior to scheduled LHC. POC and assessment discussed with Dr. Scherer. Qualifiers: Atrial fibrillation type: unspecified Qualified Code(s): I48.91 - Unspecified atrial fibrillation (3) Acute systolic (congestive) heart failure Current Visit: Yes Status: Acute EF 35% on TTE and C angiogram. CXR showed pulmonary edema , cannot r/o multifocal PNA. Continues to have cough and now orthopnea. Give IV lasix today. May need low dose maintenance lasix at d/c. Low sodium diet. Strict I&O. (4) Pneumonia Current Visit: Yes Status: Acute Hospitalist following. Possible multifocal PNA on CXR. Qualifiers: Pneumonia type: due to unspecified organism Laterality: unspecified laterality Lung location: unspecified part of lung Qualified Code(s): J18.9 - Pneumonia, unspecified organism Discussion w patient/family: The assessment and plan as outlined above was discussed with the patient and/or family members who expressed understanding and agreement. All questions were answered. Thank you for involving us in the care of your patient. Please call with any questions. Subjective Principal diagnosis: NSTEMI Interval history: Mr. Marshall c/o persistent cough when laying flat. On presentation to cardiac catheterization lab today he c/o SOB when he was layed flat. LHC was cancelled. he was recommended to be optimized prior to LHC. Objective General: Conversant, No Apparent Distress HEENT: Atraumatic, Normocephaly, Mucus Membranes Moist Neck: No JVD, Normal carotid pulses Cardiac: Reg Rate and Rhythm, Normal S1 and S2, No Murmur Lungs: Normal Breath Sounds, Other (Expiratory wheezes) Neuro: Alert and responsive, No focal deficits noted Abdomen: Soft, Non-Tender Skin: No rashes noted on visualized skin Musculoskeletal: No Chest Wall Tenderness Extremities: No Clubbing, No Cyanosis, No Edema, Normal Pulses Results 02/06/18 07:26 02/06/18 07:26 Lab Results 02/05/18 02/05/18 02/06/18 16:36 16:36 07:26 WBC 10.9 10.9 Hgb 13.8 12.4 L Hct 40.5 37.8 Plt Count 230 210 INR 1.3 Sodium Potassium Chloride Carbon Dioxide BUN Creatinine Glucose Calcium Total Bilirubin AST ALT Alkaline Phosphatase 02/06/18 02/06/18 07:26 07:26 WBC Hgb Hct Plt Count INR 1.3 Sodium 135 L Potassium 4.0 Chloride 101 Carbon Dioxide 24 BUN 32 H Creatinine 1.27 Glucose 199 H Calcium 9.0 Total Bilirubin 1.0 AST 23 ALT 29 Alkaline Phosphatase 52 - Imaging and Cardiology Echo: report reviewed - EKG Interpretation EKG results cardiology: personally reviewed - VTE Documentation of Mechanical Device: Graduated compression elastic hosiery Consult Discharge Plan - Plan [facility]errals: [facility] [Primary Care Provider] -
[2018-02-06] MEDS: levoFLOXacin 750 MG TABLET PO SCH (15:29)
[2018-02-06] MEDS: Heparin 25,000 UNIT/500 ML D5W 25,000 UNIT/500 ML BAG IVC SCH (16:57)
[2018-02-07] MEDS ORDERED: Simethicone 80 MG TAB.CHEW PO PRN (05:55)
[2018-02-07 07:19] VITALS: BP 113/60
[2018-02-07] MEDS: Metoprolol XL (24 HR) Succ 50 MG TAB.ER.24H PO SCH (07:36)
[2018-02-07] MEDS: Aspirin Enteric Coated 81 MG Tablet PO SCH (07:37)
[2018-02-07] MEDS: Insulin LISPRO 300 UNITS/3 ML VIAL SQ SCH (07:37)
[2018-02-07] MEDS: *HR* Acetylcysteine 20% 600 MG/3 ML ORAL SYRINGE PO SCH (07:37)
--- NOTE | 2018-02-07 09:17 | Discharge Summary ---
<Delbert Carrington S - Last Filed: 02/07/18 10:40> - NOTES TO OUTPATIENT PROVIDER Notes to Outpatient Provider: Follow up on Xarelto refill. Follow up on results of [facility]. Orders not resulted at time of discharge: Pending orders 02/04/18 14:45 Culture,Sputum with Gram Stain [RM] Routine Legionella Antigen [RM] Routine Mycoplasma pneumoniae IgG IgM Routine S. Pneumoniae Antigen [RM] Routine 02/04/18 14:47 Respiratory Infection Panel [MOLMIC] Routine 02/04/18 15:31 Culture,Blood [BC] Routine 02/06/18 09:12 CL Cardiac Catheterization [CL] Routine 02/08/18 08:00 Heparin anti-factor XA UFH [COAG] Stat Date of Encounter: 02/07/18 Time of Encounter: 09:14 - Discharge Diagnosis (1) Non-STEMI (non-ST elevated myocardial infarction) Priority: Primary Status: Acute (2) Hypertension Priority: Secondary Status: Chronic Qualifiers: Hypertension type: essential hypertension Qualified Code(s): I10 - Essential (primary) hypertension (3) Hyperlipidemia Priority: Secondary Status: Chronic Qualifiers: Hyperlipidemia type: unspecified Qualified Code(s): E78.5 - Hyperlipidemia , unspecified (4) Peripheral vascular disease Priority: Secondary Status: Chronic (5) Diabetes mellitus Priority: Secondary Status: Acute Qualifiers: Diabetes mellitus type: type 2 Diabetes mellitus computer terminal operator insulin use: without computer terminal operator use Diabetes mellitus complication status: with unspecified complications Qualified Code(s): E11.8 - Type 2 diabetes mellitus with unspecified complications (6) Atrial fibrillation Priority: Secondary Status: Acute Qualifiers: Atrial fibrillation type: unspecified Qualified Code(s): I48.91 - Unspecified atrial fibrillation (7) DVT prophylaxis Priority: Secondary Status: Acute (8) Pneumonia Priority: Secondary Status: Acute Qualifiers: Pneumonia type: due to unspecified organism Laterality: unspecified laterality Lung location: unspecified part of lung Qualified Code(s): J18.9 - Pneumonia, unspecified organism Hospital course: Mr. Marshall is a 82 year old male with PMH of T2DM, HDL, HTN, PAD. -came to ER with complaints of increasing SOB and cough -chronically SOB for years but over the last month the pt has had increased SOB from his baseline -He also c/o cough, which has been worse the last few nights -He has been coughing so hard that his ribs hurt at times. The patient has no complaints of chest pain. He has had some fevers/chills over the last few days. No c/o radiating pain to jaw or left arm. The patient states he has never had a heart attack before, no previous cardiax hx is on file. He denies having a LHC in the past, no stents, and had a stress test at one point that was negative for ischemia/infarct. The pt states that the most active thing he does is walk to the mailbox, which he does without difficulty. He has been having increasing claudication with long distances, however, and has been taking more of his PAD medications although he doesn't really seem to know what medications he uses. He was admitted for pneumonia and NSTEMI, received ASA in the ED and had a troponin of 5. -CXR showed pulmonary edema, cannot r/o multifocal infxn -LHC showed severe 3 vessel dz, recommended CABG vs aggressive medical management -ECHO Technically sub-optimal due to lack of LV contrast. Atrial fibrillation. LVEF grossly 35%. Severe segmental left ventricular systolic dysfunction. Normal LV chamber size, wall thickness. Normal RV size. Mild RV hypokinesis. Moderately dilated LA. Mildly dilated RA. Mild-moderate MR and TR. Severe pulmonary hypertension. Estimated RVSP 77 mmHg, RA pressure is 15 mmHg. Recommend LV contrast. Pt has c/o cough this morning, SOB has improved immensely. He denies chest pain , N/V/D, abd pain. -no hematoma where LHC was done over right femoral aa Pt to come for outpatient LHC next week as per cardiology, decided to do it as an outpt basis due to pneumonia. - yesterday the pt was loaded with plavix at -will be continued on plavix 75mg PO daily -start Xarelto 20mg PO daily (CHADVASc of 4 for HTN, t2dm, age>75, suspected CAD ) -finish Levaquin x3 days for pneumonia -40mg PO Lasix - take as needed for SOB/swelling. Gave 20 pills. Discharge discussed with: patient, family, nurse Time spent discussing smoking cessation with patient: 3 to 10 minutes - Time Spent with Patient Total time spent providing and/or coordinating discharge services: Less than 30 minutes - Discharge Medications Prescriptions: Atorvastatin [Lipitor] 40 mg PO HS 30 Days #30 tablet Clopidogrel [Plavix] 75 mg PO DAILY 30 Days #30 tablet Furosemide Oral Soln [Lasix] 40 mg PO PRN PRN 20 Days #20 tab PRN Reason: swelling levoFLOXacin [Levaquin] 750 mg PO DAILY 3 Days #3 tablet Rivaroxaban [Xarelto] 20 mg PO DAILY 30 Days #30 tablet Home Medications: Aspirin [Adult Aspirin] 81 mg PO DAILY 02/04/18 [History] Losartan [Cozaar] 25 mg PO DAILY 02/04/18 [History] Metoprolol Succinate [Toprol Xl] 50 mg PO DAILY 02/04/18 [History] Atorvastatin [Lipitor] 40 mg PO HS 30 Days #30 tablet 02/07/18 [Rx] Clopidogrel [Plavix] 75 mg PO DAILY 30 Days #30 tablet 02/07/18 [Rx] Furosemide Oral Soln [Lasix] 40 mg PO PRN PRN 20 Days #20 tab 02/07/18 [Rx] Rivaroxaban [Xarelto] 20 mg PO DAILY 30 Days #30 tablet 02/07/18 [Rx] levoFLOXacin [Levaquin] 750 mg PO DAILY 3 Days #3 tablet 02/07/18 [Rx] Allergies/Adverse Reactions: 3 Allergy/AdvReac Type Severity Reaction Status Date / Time Penicillins [PCN] Allergy Rash Verified 02/04/18 12:38 Date of admission: 02/04/18 14:15 [facility] care physician: [facility] Consults: 02/04/18 17:22 Consult to Cardiothoracic Surgery [CONS] Routine Consulting Provider: Cardiothoracic Surgery [place] Reason for Consult: 3VCAD, eval for CABG Call Completed: Yes 02/04/18 17:56 Consult to Food Production Manager [CONS] Routine Reason for SW Consult: Discharge planning 02/05/18 08:51 Consult to Cardiac Rehabilitation-Phase1 [CONS] Routine Comment: Reason for Consult: NSTEMI Call Completed: No 02/05/18 14:33 Consult to Nutrition [CONS] Routine Comment: Consulting Provider: NUTRITION Reason for Dietary Consult: Other Other:: CHF education Discharging clinician: Delbert Carrington Anticipated date of discharge: 02/07/18 - Constitutional Vitals: Temp Pulse Resp BP Pulse Ox 98.9 F 87 15 113/60 90 02/07/18 07:13 02/07/18 07:13 02/07/18 07:13 02/07/18 07:13 02/07/18 07:41 Exam: General - AOx3, NAD Cardio - RRR, s1s2, CTA , no mrg lungs - CTAB, no wheeze abd - NTND, no mass, no rebound or guarding skin - intact, no rash, no hematoma noted over right femoral aa extremities - no edema, hairless legs B/L 2/2 PAD psych - appropriate affect - Patient Status Disposition: Home, Self-Care Condition: Fair Functional capacity at discharge: independent ambulation Overall status at discharge: patient is progressing back to baseline - Discharge Instructions Instructions: Atorvastatin (By mouth), Levofloxacin (By mouth), Clopidogrel ( By mouth), Rivaroxaban (By mouth), Myocardial Infarction (DC), Atrial Fibrillation (DC) Follow Up With: [facility] [Primary Care Provider] - Forms: ED Satisfaction Letter - Diet and Activity Activity: increase activity as tolerated Diet: low fat, low cholesterol - VTE Documentation of Mechanical Device: Graduated compression elastic hosiery <Krystle Alexander - Last Filed: 02/07/18 17:46> Orders not resulted at time of discharge: Pending orders 02/04/18 14:45 Legionella Antigen [RM] Routine Mycoplasma pneumoniae IgG IgM Routine S. Pneumoniae Antigen [RM] Routine 02/04/18 14:47 Respiratory Infection Panel [MOLMIC] Routine 02/04/18 15:31 Culture,Blood [BC] Routine 02/06/18 09:12 CL Cardiac Catheterization [CL] Routine Date of Encounter: 02/07/18 - Discharge Diagnosis (1) Non-STEMI (non-ST elevated myocardial infarction) Status: Acute (2) Atrial fibrillation Status: Acute Qualifiers: Atrial fibrillation type: unspecified Qualified Code(s): I48.91 - Unspecified atrial fibrillation (3) Hypertension Status: Chronic Qualifiers: Hypertension type: essential hypertension Qualified Code(s): I10 - Essential (primary) hypertension (4) Hyperlipidemia Status: Chronic Qualifiers: Hyperlipidemia type: unspecified Qualified Code(s): E78.5 - Hyperlipidemia , unspecified (5) Peripheral vascular disease Status: Chronic (6) Diabetes mellitus Status: Acute Qualifiers: Diabetes mellitus type: type 2 Diabetes mellitus computer terminal operator insulin use: without snf use Diabetes mellitus complication status: with unspecified complications Qualified Code(s): E11.8 - Type 2 diabetes mellitus with unspecified complications (7) DVT prophylaxis Status: Acute (8) Pneumonia Status: Acute Qualifiers: Pneumonia type: due to unspecified organism Laterality: unspecified laterality Lung location: unspecified part of lung Qualified Code(s): J18.9 - Pneumonia, unspecified organism Hospital course: Mr. Marshall is a 82 year old male - Time Spent with Patient Total time spent providing and/or coordinating discharge services: Date of admission: 02/04/18 14:15 Primary care physician: [facility] Consults: 02/04/18 17:22 Consult to Cardiothoracic Surgery [CONS] Routine Consulting Provider: Cardiothoracic Surgery [place] Reason for Consult: 3VCAD, eval for CABG Call Completed: Yes 02/04/18 17:56 Consult to Food Production Manager [CONS] Routine Reason for SW Consult: Discharge planning 02/05/18 08:51 Consult to Cardiac Rehabilitation-Phase1 [CONS] Routine Comment: Reason for Consult: NSTEMI Call Completed: No 02/05/18 14:33 Consult to Nutrition [CONS] Routine Comment: Consulting Provider: NUTRITION Reason for Dietary Consult: Other Other:: CHF education - Constitutional Vitals: Temp Pulse Resp BP Pulse Ox 98.9 F 87 15 113/60 90 02/07/18 07:13 02/07/18 07:13 02/07/18 07:13 02/07/18 07:13 02/07/18 07:41 - Attending Attestation I examined this patient and my medical decision-making was reviewed with the Resident Physician Dr. Carrington. I agree with the documented findings, disposition and treatment plan as described except to the extent set forth below. Mr. Marshall is a 82 year old male with PMH of T2DM, HDL, HTN, PAD. He presented to the ER with complaints of increasing SOB and cough for 3-4 weeks. He denied any CP. He went to [place] [facility], where his initial Trop was elevated at 5.7, pt was transferred here for further care. His CXR showed multi focal infection, and pulm edema. He was admitted in the hospital and started him on Heparin gtt. He just went for LHC, which showed severe multi vessel CAD. He denied any CP / SOB. Feels better today Gen: A, A, O x 3 Chest: Diminished BS b/l, no ronchi Heart: S1S2+ Afib, No murmurs 1. Acute PNA - bacterial Improving cont empirical abx Levaquin Duonbe PRN 2. Acute NSTEMI with severe multi vessel CAD s/p LHC showed severe three vessel disease, LVEF 35% evaluated by CTS, not a great candidate for CABG Recommend aggressive medical and PCI He did not tolerate LHC y/d He is scheduled for possible PCI to LAD and Lcx as an out pt ASA+ Statin + BB 3. Acute systolic CHF exacerbation LVEF 35% Lasix PRN 4. New onset afib rate controlled on Metoprolol Switched to Xarelto for anti coag 5. CKD-2 Stable Cr Medically stable to d/c home
--- NOTE | 2018-02-07 11:08 | Cardiology Progress Note ---
Date of Encounter: 02/07/18 Time of Encounter: 10:00 Assessment and Plan (1) Non-STEMI (non-ST elevated myocardial infarction) Status: Acute Patient presented to the [place] with ongoing cough and shortness of breath for 1+ month. Initial troponin 5.79. Chest pain free upon exam. LHC completed and showed severe three vessel CAD inclusing 50% stenosis LMCA, 80 % stenosis pLAD, 95% stenosis mLAD described as a long diffuse stenosis. 100% stenosis in the pLCx artery, and 100% stenosis RPDA (PAINTER HELPER SPRAY). TTE shows EF 35%. There is mild to moderate MR. Severe PAH. CT surgery consulted and patient deemed not a good candidate for CABG. LHC films reviewed with interventionalist. The LAD and Lcx artery would be amendable to PCI. LHC cancelled today due to persistent cough and SOB. Discussed with Dr. Scherer, recommends continued treatment of pneumonia/CHF. Given IV lasix and symptoms improved. He will go home with oral lasix. Continue asa, statin, plavix and bb. Cardiac rehab consult. Recommended for LHC in one week to allow for resolution of PNA. [facility] coordinating. He is being discharged today. (2) Atrial fibrillation Status: Acute Newly discovered atrial fibrillation, chronicity unclear. Asymptomatic--no palpitations reported. Remains rate controlled, 70's-80's, continue home dose of Toprol XL. CHA2Ds Vasc= (4--HTN, DMII, age, suspected CAD); Currently on heparin gtt. Xarelto covered by [facility], recommend starting at d/c with plan to hold 48 hours prior to scheduled LHC. Discussed with patient and family and they voiced understanding. POC and assessment discussed with Dr. Scherer. Qualifiers: Atrial fibrillation type: unspecified Qualified Code(s): I48.91 - Unspecified atrial fibrillation (3) Acute systolic (congestive) heart failure Status: Acute EF 35% on TTE and C angiogram. CXR showed pulmonary edema , cannot r/o multifocal PNA on admit. IV lasix given and now improved. Low dose maintenance lasix at d/c. Low sodium diet. Strict I&O. (4) Pneumonia Status: Acute Hospitalist following. Possible multifocal PNA on CXR. Qualifiers: Pneumonia type: due to unspecified organism Laterality: unspecified laterality Lung location: unspecified part of lung Qualified Code(s): J18.9 - Pneumonia, unspecified organism Discussion w patient/family: The assessment and plan as outlined above was discussed with the patient and/or family members who expressed understanding and agreement. All questions were answered. Thank you for involving us in the care of your patient. Please call with any questions. Subjective Principal diagnosis: NSTEMI Interval history: Mr. Marshall reports he is feeling better. Cough improved. Ortopnea resolved. Denies chest pain. Objective Vital Signs, Last 4 Hours Temp Pulse Resp BP Pulse Ox 02/07/18 07:41 90 02/07/18 07:13 98.9 F 87 15 113/60 90 General: Conversant, No Apparent Distress HEENT: Atraumatic, Normocephaly, Mucus Membranes Moist Neck: No JVD, Normal carotid pulses Cardiac: Other (Irregular) Lungs: Normal Breath Sounds, No Wheeze, Rales, Rhonchi Neuro: Alert and responsive, No focal deficits noted Abdomen: Soft, Non-Tender Skin: No rashes noted on visualized skin Musculoskeletal: No Chest Wall Tenderness Extremities: No Clubbing, No Cyanosis, No Edema, Normal Pulses, Other (No problem with right groin access) Results 02/06/18 07:26 02/06/18 07:26 - Imaging and Cardiology Echo: report reviewed Cardiac cath: report reviewed - EKG Interpretation EKG results cardiology: personally reviewed - VTE Documentation of Mechanical Device: Graduated compression elastic hosiery Consult Discharge Plan - Plan Instructions: Atorvastatin (By mouth), Levofloxacin (By mouth), Clopidogrel ( By mouth), Rivaroxaban (By mouth), Myocardial Infarction (DC), Atrial Fibrillation (DC) [facility]errals: [facility] [Primary Care Provider] - Prescriptions: Atorvastatin [Lipitor] 40 mg PO HS 30 Days #30 tablet Clopidogrel [Plavix] 75 mg PO DAILY 30 Days #30 tablet Furosemide Oral Soln [Lasix] 40 mg PO PRN PRN 20 Days #20 tab PRN Reason: swelling levoFLOXacin [Levaquin] 750 mg PO DAILY 3 Days #3 tablet Rivaroxaban [Xarelto] 20 mg PO DAILY 30 Days #30 tablet
--- NOTE | 2018-02-08 12:28 | Electrocardiograph Report ---
[address] [place] [address] Test Date: 2018-02-04 Pat Name: Laith Marshall Department: [id number] Room: 2A Gender: M Secretary Office Clerk: : [id number] Requested By: Lakhwinder Cuellar Order Number: [id number] Reading MD: Homar Good Measurements Intervals [place] Rate: 71 P: ID: QRS: -54 QRSD: 123 T: 155 QT: 467 QTc: 508 Interpretive Statements Atrial fibrillation Nonspecific IVCD with LAD Anterolateral infarct, age indeterminate Electronically Signed On 02-08-2018 12:26:42 EDT by Homar Good
[2018-02-10 09:43] LABS: Mycoplasma pneumoniae IgG 0.16 U/L (<=0.09)
== END 2018-02-07 11:11 | disposition home or self-care (01) | DRG 280 ==
LOC: EMEROOARM 11:35 → 2ANU 14:15
PROVIDERS: ADMIT Internal Medicine; ATTEND Internal Medicine

== ENCOUNTER 2018-02-24 21:54 | Observation (INO) ==
--- NOTE | 2018-02-25 08:33 | Internal Med History&Physical ---
Date of Encounter: 02/25/18 Time of Encounter: 08:24 Internal Medicine - H&P: HPI Chief complaint: Shortness of breath Admitted From: Home Plans for Post Hospital Care: Home History of present illness: Mr. Marshall is a 82 year old male with past mental history of recent NSTEMI and severe multivessel coronary artery disease who presents to the [facility] emergency department with chief complaint of shortness of breath. The patient states that he was recently discharge however has been progressively getting more short of breath and admits to worsening orthopnea and dyspnea on exertion. Patient however denies paroxysmal nocturnal dyspnea. Patient states that he is also having a nonproductive cough. Upon evaluation the [facility] the patient had a chest x-ray which revealed bilateral patchy opacities that could be consistent with infectious etiology and possible pulmonary edema. The patient was subsequently transferred to [facility] for further workup and admission for heart failure exacerbation. Patient is currently scheduled to have outpatient PCI on 03/06/2018 for severe multivessel coronary artery disease. Echocardiogram on last visit revealed EF of 35% and the patient was deemed not a good CABG candidate. The patient was discharged on by mouth Lasix to be taken when necessary for shortness of breath and swelling, the patient and daughter state that he has been taking this occasionally but only a few times and only began taking it recently yesterday when his shortness of breath worsened. Patiently currently denies any chest pain, nausea, palpitations, vomiting, diarrhea, fevers, blurry vision, double vision, melena, hematochezia. He states that he has not developed chest pain even with his recent NSTEMI. Patient does admit to intermittent diaphoresis. Discussed CODE STATUS with patient and daughter agree with full code for now. Past Med Surg Social Fam HX - Past Medical History Medical history: coronary artery disease, diabetes, hyperlipidemia, hypertension , peripheral artery disease Psychiatric history: no psych history - Past Surgical History Surgical History: no surgical history - Social History Smoking Status: Former smoker Smokeless Tobacco Status: No Alcohol use: rarely Drug use: none - Family History Mother Living Status: Hx Family Cardiac Disorders: Yes (Htn) Hx Family Respiratory Disorders: No Hx Family Cancer: No Hx Family GI Disorders: No Hx Family Genitourinary Disorders: No Hx Family Endocrine Disorder: No Hx Family Musculoskeletal Disorders: No Hx Family Neuromuscular Disorders: No Hx Family Neurologic Disorders: No Hx Family HEENT Disorders: No Hx Family Autoimmune Disorders: No Hx Family Reproductive Disorders: No Hx Family Psychosocial Disorders: No Hx Family Medical Disorders: No Father Living Status: Cause of : stroke Hx Family Respiratory Disorders: Yes Hx Family Cancer: Yes (Bladder ca) Hx Family GI Disorders: No Hx Family Genitourinary Disorders: Yes (Bladder Ca) Hx Family Endocrine Disorder: No Hx Family Musculoskeletal Disorders: No Hx Family Neuromuscular Disorders: No Hx Family Neurologic Disorders: No Hx Family HEENT Disorders: No Hx Family Autoimmune Disorders: No Hx Family Reproductive Disorders: No Hx Family Psychosocial Disorders: No Hx Family Medical Disorders: No Internal Medicine - H&P: Meds Aspirin [Adult Aspirin] 81 mg PO DAILY 02/04/18 [History] Losartan [Cozaar] 25 mg PO DAILY 02/04/18 [History] Metoprolol Succinate [Toprol Xl] 50 mg PO DAILY 02/04/18 [History] Atorvastatin [Lipitor] 40 mg PO HS 30 Days #30 tablet 02/07/18 [Rx] Clopidogrel [Plavix] 75 mg PO DAILY 30 Days #30 tablet 02/07/18 [Rx] Metformin HCl [Glucophage] 1,000 mg PO BID 02/24/18 [History] Rivaroxaban [Xarelto] 15 mg PO DAILY 02/24/18 [History] 3 Allergy/AdvReac Type Severity Reaction Status Date / Time Penicillins [PCN] Allergy Rash Verified 02/24/18 19:50 All Systems PM: A 10-system review of systems was performed and is negative for pertinent findings except as documented above in the HPI. Review of systems: 10 point review of systems obtained and is otherwise negative other than described in history of present illness - Constitutional Vitals: Temp Pulse Resp BP Pulse Ox 98.2 F 83 20 115/75 94 02/25/18 07:00 02/25/18 07:00 02/25/18 07:00 02/25/18 07:00 02/25/18 07:00 Exam: Constitutional: No acute distress, Alert, lying at incline Psych: AAO x 3 HEENT: NCAT, EOMI Neck: supple Cardio: Irregularly irregular with controlled rate no murmurs appreciated, appears to have JVD but somewhat difficult to evaluate Resp: bibasilar crackles with coarse breath sounds throughout Abd: soft, non tender/non distended, positive bowel sounds, no gaurding/reboud/ ridgitity Extremities: no clubbing/cyanosis/edema appreciated Neuro: no focal deficits appreciated Lymph: no cervical adenopahty apprecitated Internal Med - H&P Results - Labs CBC & Chem 7: 02/25/18 09:04 02/25/18 09:04 - Assessment and plan (1) Acute systolic (congestive) heart failure Current Visit: Yes Status: Acute Assessment and plan: Patient with 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 with recent EF 35% -Worsening dyspnea on exertion and orthopnea -Patient discharged on Lasix by mouth when necessary however has only taken a few times and did not start taking it recently until last evening -Start IV diuresis -Strict intake and output -Daily weights -Consult cardiology for evaluation and recommendations -Currently scheduled for outpatient PCI on March 06 2018; recently deemed not a candidate for CABG -Continue beta gabriella, ARB (2) Coronary artery disease Current Visit: Yes Status: Acute Assessment and plan: -Severe multivessel coronary disease with ICM -Currently scheduled for PCI next week -Continue aspirin and Plavix, BB -Cardiology consulted Qualifiers: Coronary Disease-Associated Artery/Lesion type: [place] artery [place] vs. transplanted heart: [place] heart Associated angina: without angina Qualified Code(s): I25.10 - Atherosclerotic heart disease of [place] coronary artery without angina pectoris (3) Pneumonia Current Visit: Yes Status: Acute Assessment and plan: -Patient with imaging findings consistent with multifocal pneumonia; however the patient only admits to continued dry cough that has not changed much since last admission -Unsure if this is actually infectious; however will start Levaquin in order procalcitionin, if negative likely discontinue antibiotics -Imaging findings could still be due to recent pna Qualifiers: Pneumonia type: due to unspecified organism Laterality: bilateral Lung location: unspecified part of lung Qualified Code(s): J18.9 - Pneumonia, unspecified organism (4) Atrial fibrillation Current Visit: Yes Status: Acute Assessment and plan: -Rate Controlled -CHADSVASC 4 -Continue BB, Xarelto Qualifiers: Atrial fibrillation type: unspecified Qualified Code(s): I48.91 - Unspecified atrial fibrillation (5) Diabetes mellitus Current Visit: Yes Status: Acute Assessment and plan: -monitor accuchecks -SSI if needed Qualifiers: Diabetes mellitus type: type 2 Diabetes mellitus assisted insulin use: without intermodal dispatcher use Diabetes mellitus complication status: with unspecified complications Qualified Code(s): E11.8 - Type 2 diabetes mellitus with unspecified complications (6) Hyperlipidemia Current Visit: Yes Status: Chronic Assessment and plan: -continue statin Qualifiers: Hyperlipidemia type: unspecified Qualified Code(s): E78.5 - Hyperlipidemia , unspecified (7) Hypertension Current Visit: Yes Status: Chronic Assessment and plan: -continue home meds -bp controlled Qualifiers: Hypertension type: essential hypertension Qualified Code(s): I10 - Essential (primary) hypertension (8) DVT prophylaxis Current Visit: Yes Status: Acute Assessment and plan: -xarelto - Time Spent With Patient Total time spent is greater than 50% in coordination of care (as documented) at patient's floor/unit and/or counseling patient: Greater than 35 minutes
[2018-02-25] MEDS ORDERED: levoFLOXacin 750 MG TABLET PO SCH (09:00)
[2018-02-25] MEDS: *HR* Rivaroxaban 15 MG TABLET PO SCH (09:02)
[2018-02-25] MEDS: Metoprolol XL (24 HR) Succ 50 MG TAB.ER.24H PO SCH (09:02)
[2018-02-25] MEDS: Aspirin Enteric Coated 81 MG Tablet PO SCH (09:02)
[2018-02-25] MEDS: Furosemide 40 MG/4 ML VIAL IVP SCH (09:02)
[2018-02-25 09:14] LABS: Basophils # 0.1 K/mcL (0.0-0.2); Basophils % 0.7 %; Eosinophils # 0.4 K/mcL (0.0-0.6); Eosinophils % 4.6 %; Hematocrit 36.6 % (37.5-50.1); Hemoglobin 12.1 g/dL (12.9-16.9); Immature Granulocytes % 0.5 % (0-4); Lymphocytes # 1.5 K/mcL (0.6-4.6); Lymphocytes % 19.5 %; Mean Corpuscular HGB Conc 33.1 g/dL (31.6-35.5); Mean Corpuscular Volume 96.8 fL (83.0-100.0); Mean Platelet Volume 10.4 fL (9.4-12.4); Monocytes # 0.9 K/mcL (0.0-1.3); Monocytes % 12.3 %; Neutrophils # 4.7 K/mcL (1.6-8.9); Platelet Count 268 K/mcL (140-400); Red Blood Count 3.78 M/mcL (4.19-5.50); Red Cell Distribution Width 13.8 % (11.5-14.5); Segmented Neutrophils % 62.4 %
[2018-02-25] MEDS ORDERED: *HR* Dextrose 50 % in Water (Syg) 50 ML SYRINGE IVP PRN (09:27)
[2018-02-25] MEDS ORDERED: D5% in Water 1,000 ML IVC PRN (09:27)
[2018-02-25] MEDS ORDERED: Dextrose Gel 15 GM/37.5 ML TUBE PO PRN ×2 (09:27)
[2018-02-25 09:28] LABS: BUN/Creatinine Ratio 19 (6-26); Blood Urea Nitrogen 22 mg/dL (8-23); Calcium 8.7 mg/dL (8.6-10.3); Carbon Dioxide 24 mEq/L (23-29); Chloride 103 mEq/L (98-107); Glucose 155 mg/dL (70-105); Magnesium 1.6 mg/dL (1.6-2.6); Osmolality,Calculated 288 (280-300); Potassium 3.9 mEq/L (3.5-5.1); Sodium 136 mEq/L (136-145); eGFR For Non-African Americans 59 (> 60)
[2018-02-25 10:22] LABS: Estimated Average Glucose 209 mg/dl; Hemoglobin A1C 8.9 %
--- NOTE | 2018-02-25 11:39 | Cardiology Consult Note ---
Date of Encounter: 02/25/18 Time of Encounter: 11:36 Assessment and Plan (1) Acute systolic (congestive) heart failure Current Visit: Yes Status: Acute Patient was given 40 mg Lasix this morning Patient has less shortness of breath on exam Will monitor overnight Plan on PCI as scheduled 03/06/[address] Scherer for severe multi-vessel disease (2) Coronary artery disease Current Visit: Yes Status: Acute Patient had some increased shortness of breath today and was admitted to the hospital for further workup CXR showed possible pulmonary edema Hx of NSTEMI Feb 04 with diagnostic left heart cath, severe multivessel CAD and was ruled not a candidate for CABG. PCI was held off due to patients inability to lay flat without coughing from concurrent pneumonia which has been treated both inpatient and with 2 rounds of outpatient antibiotics at this time. Patient was given 40mg Lasix this morning and his Shortness of breath has subsided, currently being treated with antibiotics for possible underlying pneumonia. Will continue to monitor overnight with plan for outpatient PCI as scheduled 03/06/[address] Scherer. Qualifiers: Coronary Disease-Associated Artery/Lesion type: [place] artery [place] vs. transplanted heart: [place] heart Associated angina: without angina Qualified Code(s): I25.10 - Atherosclerotic heart disease of [place] coronary artery without angina pectoris Discussion w patient/family: The assessment and plan as outlined above was discussed with the patient and/or family members who expressed understanding and agreement. All questions were answered. Thank you for involving us in the care of your patient. Please call with any questions. History of Present Illness Consult date: 02/25/18 Requesting physician: Cj Rolon Consult reason: CHF exacerbation, sched for PCI on 03/06; follows w/Dr. Scherer; recent NSTEMI Chief complaint: Shortness of breath History of present illness: Mr. Marshall is a 82 year old male with PMH of NSTEMI (February), severe multi- vessel coronary artery disease, DMII, HTN, hypercholesterolemia, and Afib. Presented to ED after daughter noticed he was short of breath on the phone although he does not feel short of beath. He states on his 02/04 admission he had a diagnostic heart catheterization and was ruled to not be a candidate for CABG , he was unable to have PCI for his blockages due to cough from underlying pneumonia. Outpatient PCI was scheduled with Dr. Scherer on 03/06/18. He was treated for pneumonia inpatient and a 10 day course of outpatient antibiotics, the [place] gave him a second round of antibiotics for pneumonia which he just finished last week. He states that he does not have any chest pain and hasn't even with his NSTEMI. He states he has been taking his lasix on and off for the last few weeks, only when he gets more short of breath. His troponin was 0.05 on admission. CXR showed patchy infiltrates, Echo on last admission showed 35% EF. Past Med Surg Social Fam HX - Past Medical History Medical history: coronary artery disease, diabetes, hyperlipidemia, hypertension , peripheral artery disease Psychiatric history: no psych history - Past Surgical History Surgical History: no surgical history - Social History Smoking Status: Former smoker Smokeless Tobacco Status: No Alcohol use: rarely Drug use: none - Family History Mother Living Status: Hx Family Cardiac Disorders: Yes (Htn) Hx Family Respiratory Disorders: No Hx Family Cancer: No Hx Family GI Disorders: No Hx Family Genitourinary Disorders: No Hx Family Endocrine Disorder: No Hx Family Musculoskeletal Disorders: No Hx Family Neuromuscular Disorders: No Hx Family Neurologic Disorders: No Hx Family HEENT Disorders: No Hx Family Autoimmune Disorders: No Hx Family Reproductive Disorders: No Hx Family Psychosocial Disorders: No Hx Family Medical Disorders: No Father Living Status: Cause of : stroke Hx Family Respiratory Disorders: Yes Hx Family Cancer: Yes (Bladder ca) Hx Family GI Disorders: No Hx Family Genitourinary Disorders: Yes (Bladder Ca) Hx Family Endocrine Disorder: No Hx Family Musculoskeletal Disorders: No Hx Family Neuromuscular Disorders: No Hx Family Neurologic Disorders: No Hx Family HEENT Disorders: No Hx Family Autoimmune Disorders: No Hx Family Reproductive Disorders: No Hx Family Psychosocial Disorders: No Hx Family Medical Disorders: No Medications and Allergies Aspirin [Adult Aspirin] 81 mg PO DAILY 02/04/18 [History] Losartan [Cozaar] 25 mg PO DAILY 02/04/18 [History] Metoprolol Succinate [Toprol Xl] 50 mg PO DAILY 02/04/18 [History] Atorvastatin [Lipitor] 40 mg PO HS 30 Days #30 tablet 02/07/18 [Rx] Clopidogrel [Plavix] 75 mg PO DAILY 30 Days #30 tablet 02/07/18 [Rx] Metformin HCl [Glucophage] 1,000 mg PO BID 02/24/18 [History] Rivaroxaban [Xarelto] 15 mg PO DAILY 02/24/18 [History] Furosemide [Lasix] 40 mg PO DAILY PRN 02/25/18 [History] 3 Allergy/AdvReac Type Severity Reaction Status Date / Time Penicillins [PCN] Allergy Rash Verified 02/24/18 19:50 All Systems Review: The remainder of the systems were reviewed and are negative - Constitutional Constitutional: fatigue, no chills, no fever(s) - Cardiovascular Cardiovascular: irregular heart rhythm, no chest pain at rest, no chest pain with exertion - Respiratory Respiratory: cough, dyspnea (he does not notice this but his daughter noticed it on the phone with him) - Gastrointestinal Gastrointestinal: no abdominal pain, no constipation, no diarrhea Physical Examination Vital Signs, Last 4 Hours Temp Pulse Resp BP Pulse Ox 02/25/18 11:21 98.2 F 84 17 106/69 93 General: Conversant, No Apparent Distress HEENT: Atraumatic, Normocephaly Neck: No JVD Cardiac: No Murmur, Other (irregular rhythm, regular rate) Lungs: Normal Breath Sounds, Other (bibasilar crackles ) Neuro: Alert and responsive Abdomen: Soft, Non-Tender Skin: No rashes noted on visualized skin Musculoskeletal: No Chest Wall Tenderness Extremities: No Clubbing, No Cyanosis, No Edema Results 02/25/18 09:04 02/25/18 09:04 Lab Results 02/25/18 02/25/18 02/25/18 09:04 09:04 09:04 WBC 7.5 Hgb 12.1 L Hct 36.6 L Plt Count 268 Sodium Potassium Chloride Carbon Dioxide BUN Creatinine Glucose Calcium Magnesium Troponin I 0.05 H* B-Natriuretic Peptide 1003 H 02/25/18 09:04 WBC Hgb Hct Plt Count Sodium 136 Potassium 3.9 Chloride 103 Carbon Dioxide 24 BUN 22 Creatinine 1.18 Glucose 155 H Calcium 8.7 Magnesium 1.6 Troponin I B-Natriuretic Peptide Consult Discharge Plan - Plan Referrals: Randy Jose MD [Primary Care Provider] - (Requested a follow up appointment in 7-10 days with Randy Jose. )
[2018-02-25] MEDS: Insulin LISPRO 300 UNITS/3 ML VIAL SQ SCH ×4 (11:53→20:49)
[2018-02-26 06:00] LABS: Basophils # 0.1 K/mcL (0.0-0.2); Basophils % 0.6 %; Eosinophils # 0.3 K/mcL (0.0-0.6); Eosinophils % 3.9 %; Hematocrit 33.3 % (37.5-50.1); Hemoglobin 10.8 g/dL (12.9-16.9); Immature Granulocytes % 0.8 % (0-4); Lymphocytes % 12.5 %; Mean Corpuscular HGB Conc 32.4 g/dL (31.6-35.5); Mean Corpuscular Hemoglobin 31.5 pg (28.0-33.3); Mean Corpuscular Volume 97.1 fL (83.0-100.0); Mean Platelet Volume 10.3 fL (9.4-12.4); Monocytes % 12.9 %; Neutrophils # 5.3 K/mcL (1.6-8.9); Platelet Count 256 K/mcL (140-400); Red Blood Count 3.43 M/mcL (4.19-5.50); Red Cell Distribution Width 13.8 % (11.5-14.5); Segmented Neutrophils % 69.3 %
[2018-02-26 06:22] LABS: BUN/Creatinine Ratio 20 (6-26); Blood Urea Nitrogen 24 mg/dL (8-23); Calcium 8.7 mg/dL (8.6-10.3); Carbon Dioxide 22 mEq/L (23-29); Chloride 105 mEq/L (98-107); Glucose 171 mg/dL (70-105); Magnesium 1.6 mg/dL (1.6-2.6); Osmolality,Calculated 298 (280-300); Phosphorous 3.3 mg/dL (2.7-4.5); Potassium 4.1 mEq/L (3.5-5.1); Sodium 140 mEq/L (136-145); eGFR For Non-African Americans 56 (> 60)
--- NOTE | 2018-02-26 09:26 | Discharge Summary ---
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 F/U with your primary care within a week. Orders not resulted at time of discharge: Pending orders 02/25/18 09:04 Procalcitonin Routine Date of Encounter: 02/26/18 Time of Encounter: 09:23 - Discharge Diagnosis (1) Pneumonia Priority: Primary Status: Acute Qualifiers: Pneumonia type: due to unspecified organism Laterality: bilateral Lung location: unspecified part of lung Qualified Code(s): J18.9 - Pneumonia, unspecified organism (2) Atrial fibrillation Priority: Secondary Status: Chronic Qualifiers: Atrial fibrillation type: unspecified Qualified Code(s): I48.91 - Unspecified atrial fibrillation (3) Hypertension Priority: Secondary Status: Chronic Qualifiers: Hypertension type: essential hypertension Qualified Code(s): I10 - Essential (primary) hypertension (4) Hyperlipidemia Priority: Secondary Status: Chronic Qualifiers: Hyperlipidemia type: unspecified Qualified Code(s): E78.5 - Hyperlipidemia , unspecified (5) Diabetes mellitus Priority: Secondary Status: Chronic Qualifiers: Diabetes mellitus type: type 2 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 transplanted heart: [place] heart Associated angina: without angina Qualified Code(s): I25.10 - Atherosclerotic heart disease of [place] coronary artery without angina pectoris Hospital course: Mr. Marshall is a 82 year old male past mental history of recent NSTEMI, severe multivessel coronary artery disease, diabetes, hyperlipidemia, hypertension, peripheral artery disease, who presents to the [facility] emergency department with chief complaint of shortness of breath. Patient diagnosed with pneumonia, started on by mouth antibiotics. Chest x-ray showed possible pulmonary congestion. Patient was treated with IV diuresis. Patient's symptoms resolved. Patient was evaluated by cardiology and agreed on discharging the patient on by mouth furosemide and to follow-up with them within a week. Patient is clinically stable to be discharged home. Recommended to continue by mouth antibiotics for 6 more days. - Time Spent with Patient Total time spent providing and/or coordinating discharge services: Less than 30 minutes - Discharge Medications Prescriptions: Furosemide [Lasix] 40 mg PO DAILY PRN 30 Days #30 tablet PRN Reason: swelling levoFLOXacin [Levaquin] 750 mg PO DAILY 6 Days #6 tablet Home Medications: Aspirin [Adult Aspirin] 81 mg PO DAILY 02/04/18 [History] Losartan [Cozaar] 25 mg PO DAILY 02/04/18 [History] Metoprolol Succinate [Toprol Xl] 50 mg PO DAILY 02/04/18 [History] Atorvastatin [Lipitor] 40 mg PO HS 30 Days #30 tablet 02/07/18 [Rx] Clopidogrel [Plavix] 75 mg PO DAILY 30 Days #30 tablet 02/07/18 [Rx] Metformin HCl [Glucophage] 1,000 mg PO BID 02/24/18 [History] Rivaroxaban [Xarelto] 15 mg PO DAILY 02/24/18 [History] Furosemide [Lasix] 40 mg PO DAILY PRN 30 Days #30 tablet 02/26/18 [Rx] levoFLOXacin [Levaquin] 750 mg PO DAILY 6 Days #6 tablet 02/26/18 [Rx] Allergies/Adverse Reactions: 3 Allergy/AdvReac Type Severity Reaction Status Date / Time Penicillins [PCN] Allergy Rash Verified 02/24/18 19:50 Date of admission: 02/24/18 23:03 Primary care physician: Randy Jose MD Consults: 02/25/18 08:21 Consult to Cardiology [CONS] Routine Comment: Consulting Provider: Cardiology Vivi Reason for Consult: CHF exacerbation, scheduled for PCI on 03/06; sees Dr. Scherer; recent NSTEMI Call Completed: Yes - Constitutional Vitals: Temp Pulse Resp BP Pulse Ox 98.0 F 84 20 104/64 93 02/26/18 06:53 02/26/18 06:53 02/26/18 06:53 02/26/18 06:53 02/26/18 06:53 Exam: General: Alert and oriented 4. In no acute distress. Speaking in full sentences. Cardiovascular: Irregularly, irregular, Normal S1 & S2, no rubs, murmurs or gallops. Lungs: Clear to auscultation bilaterally, no wheezes or crackles. Abdomen: Soft, non-tender, no rigidity. Extremities: no edema or tenderness. Strength is 5 out of 5 in the lower and upper extremities. Neurological: Normal cognition and motor skills CN II-XII intact. Rest of the physical exam is non contributory - Patient Status Disposition: Home, Self-Care Condition: Good Functional capacity at discharge: independent ambulation Overall status at discharge: patient is back to baseline - Discharge Instructions Follow Up With: Randy Jose MD [Primary Care Provider] - 03/05/18 1:30 pm () - Diet and Activity Activity: resume usual activities as tolerated Diet: diabetic diet
[2018-02-26] MEDS: Aspirin Enteric Coated 81 MG Tablet PO SCH (10:12)
[2018-02-26] MEDS: *HR* Rivaroxaban 15 MG TABLET PO SCH (10:12)
[2018-02-26] MEDS: Furosemide 40 MG/4 ML VIAL IVP SCH (10:12)
[2018-02-26] MEDS: Metoprolol XL (24 HR) Succ 50 MG TAB.ER.24H PO SCH (10:12)
[2018-02-26] MEDS: Insulin LISPRO 300 UNITS/3 ML VIAL SQ SCH ×2 (10:13→12:22)
[2018-02-26 11:59] VITALS: BP 107/70
== END 2018-02-26 13:50 | disposition home or self-care (01) ==
LOC: 3BNU → SUATTDRO 23:03
PROVIDERS: ADMIT Pediatrics; ATTEND Internal Medicine

== ENCOUNTER 2018-03-06 07:21 | Observation (INO) ==
[2018-03-06] MEDS ORDERED: ISOVUE-370 200 ML INFUS..BTL IV ONE ×2 (07:43→14:55)
[2018-03-06] MEDS ORDERED: Heparin 1,000 UNITS/500 mL 500 ML ONE (07:43)
[2018-03-06] MEDS ORDERED: Nitroglycerin 1,000 MCG/10 ML VIAL IV ONE ×2 (07:43→13:03)
[2018-03-06] MEDS ORDERED: *HR* Heparin 10,000 UNIT/10 ML VIAL ONE ×3 (07:43→14:28)
[2018-03-06] MEDS: 0.9 % Sodium Chloride 1,000 ML IVC SCH (08:19)
[2018-03-06] MEDS ORDERED: *HR* Bivalirudin 250 MG VIAL IVC ONE (09:03)
[2018-03-06] MEDS ORDERED: D5% in Water 250 ML ONE (13:03)
--- NOTE | 2018-03-06 13:24 | History & Physical Report ---
Date of Encounter: 03/06/18 Time of Encounter: 13:21 24 Hour HP Update - Instructions Instructions: If the History and Physical is less than 30 days old and was completed prior to A.M. admission and or procedure and has NOT been updated on calendar day of procedure please complete this update prior to performing procedure. - Update Patient reports changes in Medical Condition: No Changes in examination, assessment, or condition: No Changes in Medication: No Preop tests/diagnostics Reviewed: Yes Pre-Op MRSA Screen: Negative Surgery Remains Indicated: Yes Consent for Planned Operative Procedure(s) Verified: Yes - Pre-Operative Checklist Preoperative Checklist Indicated: Yes Prophylactic Antibiotic Ordered: No Home Medications Include Beta Damari: Yes Beta Damari Taken Today (Day of Surgery): Yes Beta Damari Taken Yesterday (Day Prior to Surgery): Yes Is VTE Prophylaxis Indicated?: NO (PT seen and examined, chart reviewed, discussed planned procedure, pt elects to proceed.)
--- NOTE | 2018-03-06 13:26 | Pre-Sedation Evaluation ---
Pre-sedation evaluation - Pre-sedation checklist Date of procedure: 03/06/18 Procedure: LEFT HEART CATH Recent Vitals: Last Vital Signs Temp 96.4 F L 03/06/18 08:04 Pulse 80 03/06/18 08:04 Resp 20 03/06/18 08:04 BP 113/56 03/06/18 08:04 Pulse Ox 96 03/06/18 08:04 H&P (including ROS) documented in medical record: Yes Previous reaction to sedatives/anesthetics: No Dietary Status: NPO after Midnight Airway Assessment: Patient can open mouth completely, TMJ function normal Dentition: dentures removed Possible difficult airway: No ASA Classification *see protocol: CLASS IV-Severe systemic disease/constant threat to pt's life Plan of Care: Pt appropriate candidate for procedure/moderate/conscious sedation , Risks/benefits of procedure/sedation discussed w/ patient/family, If not NPO; Risk of intake outweiged by necessity to perform procedure Cardiac Registry (Cardio Only) - Functional Capacity Functional Capacity: >=4 METS with symptoms - Clincal Frailty Scale Clinical Frailty Scale: Mildly Frail
[2018-03-06] MEDS ORDERED: *HR* Midazolam HCl 2 MG/2 ML VIAL ONE ×2 (13:28→13:48)
[2018-03-06] MEDS ORDERED: *HR* Morphine 2 MG/ML SYRINGE ONE (14:35)
[2018-03-06] MEDS ORDERED: 0.9 % Sodium Chloride 1,000 ML ONE (15:49)
--- NOTE | 2018-03-06 16:44 | Invasive Diagnostic Lab Proc ---
Name: Laith Marshall Date of Study: 03/06/2018 Date: 1935 Ht: 67.0in Medical Record#: [id number] Age: 83 Wt: 145.00lb Gender: Male BSA: 1.76 Order #: [id number] BMI: 22.71 Physicians Procedure Physician: Wiliam Scherer DO Referring MD: Randy Jose MD Referring MD: Staff Name Position Time In Clarence Simons RN Nurse 07:30 AM Chapito Pate RN Monitor 09:08 AM Tyler Camacho RN Process Improvement Specialist 09:08 AM Sites, Pat RT (R) Scrub 09:08 AM Chapito Pate RN Monitor 01:21 PM Tyler Camacho RN Process Improvement Specialist 01:21 PM Sites, Pat RT (R) Scrub 01:21 PM Indications Indication Procedures Performed Procedure Insert VAD artery access STENT PLCMT, NONCORON INITIAL STENT PLCMT, NONCORON EA ADDL PRQ CARD BILL STENT W/ANGIO 1 VSL PRQ CARD BILL STENT W/ANGIO 1 VSL Pre-Procedure Checklist Informed consent is complete signed and on chart. H&P is on chart. ID band is on and ID verified with patient. Patient NPO for procedure The procedure was described for the patient and questions were answered. Blood Pressure: 113/56 ECG is on chart. Rhythm: Atrial Fibrillation Plan of Care Patient will tolerate the procedure without complications. Adequate level of comfort will be maintained. Hemodynamics will remain stable Patient will recover from procedure without complications. Respiratory function will be maintained. Cardiac rhythm will remain stable. Patient temperature will be maintained. Patient and/or family have verbalized understanding of the procedure. Patient Education Chief Complaint/Reason for Test: Cardiac Cath Developmental Category: Geriatric (65+ years) Developmentally Appropriate for Age: Yes Learning Barriers: None Education Needs: Procedure Education Method: Verbal Information Taught: Cardiac Cath Educational Evaluation: Able to repeat information Intravenous Access Time IV Size Location DC'd Fluid/Drip Rate Units RN 08:20 AM Started with 22g 1 " Rt Antecubital 0.9NaCl 100 ml/hr Clarence Simons RN Allergies Penicillins Vital Signs Time BP (mmHg) HR (bpm) O2 Sat. RR (bpm) LOC 08:30 AM 113 / 56 80 96 % 20 5 = Fully awake and oriented or at pre-proc level 09:09 AM / % 5 = Fully awake and oriented or at pre-proc level 01:24 PM / % 5 = Fully awake and oriented or at pre-proc level 01:24 PM / % 4 = Oriented but drowsy 01:39 PM / % 4 = Oriented but drowsy 01:55 PM / % 4 = Oriented but drowsy 02:10 PM / % 4 = Oriented but drowsy 02:25 PM / % 4 = Oriented but drowsy 02:40 PM / % 4 = Oriented but drowsy 01:28 PM 144 / 89 90 100 % 17 01:34 PM 124 / 86 83 100 % 20 01:38 PM 119 / 66 78 99 % 23 01:43 PM 110 / 76 76 99 % 18 01:48 PM 109 / 71 88 99 % 23 01:53 PM 112 / 72 85 98 % 22 01:58 PM 120 / 70 80 98 % 22 02:04 PM 116 / 73 74 100 % 17 02:09 PM 117 / 69 86 98 % 24 02:14 PM 126 / 68 92 99 % 13 02:19 PM 118 / 71 77 76 % 21 02:24 PM 117 / 79 90 % 23 02:29 PM 114 / 76 73 98 % 24 03:24 PM 129 / 92 83 91 % 17 03:29 PM 127 / 100 77 91 % 22 03:34 PM 112 / 77 84 96 % 19 03:39 PM 120 / 73 79 100 % 16 03:44 PM 123 / 72 87 100 % 14 02:34 PM 124 / 83 83 91 % 38 02:39 PM 117 / 59 70 97 % 24 02:44 PM 117 / 67 73 91 % 21 02:49 PM 125 / 71 88 100 % 41 02:54 PM 127 / 94 81 100 % 23 02:59 PM 123 / 102 67 100 % 20 03:04 PM 119 / 87 70 99 % 32 03:09 PM 123 / 40 71 99 % 29 03:14 PM 134 / 98 81 91 % 19 03:20 PM 127 / 102 73 88 % 18 Procedural Medications Time Medication Dose Units Method Given By 01:24 PM Oxygen 2 L/min nasal cannula Tyler Camacho RN 01:30 PM Versed 1 mg Intravenous Tyler Camacho RN 01:41 PM Versed 1 mg Intravenous Tyler Camacho RN 01:51 PM Lidocaine 2% 10 ml Subcutaneous Wiliam Scherer DO 01:53 PM Lidocaine 2% 10 ml Subcutaneous Wiliam Scherer DO 02:14 PM Versed 1 mg Intravenous Tyler Camacho RN 02:22 PM Heparin 5000 units Intravenous Tyler Camacho RN 02:30 PM Heparin 1000 units Intravenous Tyler Camacho RN 02:35 PM Morphine 2 mg Intravenous Tyler Camacho RN 03:06 PM Versed 1 mg Intravenous Tyler Camacho RN 03:37 PM Plavix 300 mg Orally Tyler Camacho RN ASA Classification: CLASS IV- Severe systemic that is constant threat to patient's life Jr Score Preprocedure Postprocedure Activity 2- Moves 4 extremities sustained head lift Activity 2- Moves 4 extremities sustained head lift Circulation 2- SBP +/= 20 points of pre-anesthetic level Circulation 2- SBP +/= 20 points of pre-anesthetic level Consciousness 2- Awake and alert oriented x 3 Consciousness 2- Awake and alert oriented x 3 O2 Saturation 2- Able to maintain O2 satruation of 92% on room air O2 Saturation 2- Able to maintain O2 satruation of 92% on room air Respiratory 2- Able to deep breathe and cough well Respiratory 2- Able to deep breathe and cough well Total Score 10 Total Score 10 Contrast Agent: Isovue Diagnostic Contrast: 275 ml Total Contrast: 275 ml Fluoro Dose: 42319 mGy Activated Clotting Time Time Seconds to Clot 02:30 PM 235 03:12 PM 400 03:45 PM 250 Procedure Log Time Note Enter By 08:35 AM Risk for fall? Yes, Medications (change in amt./frequency,newly prescribed,potential combinations) kwitte 08:35 AM Evidence of mental, physical, or emotional abuse? No kwitte 08:35 AM Does patient have suicidal ideations? No kwitte 08:43 AM Ho paged/called 08:43. [email or web address] 08:59 AM Physician arrived 08:59 [email or web address] 08:59 AM Ho responded and notified patient is ready 08:[facility] AM [ Start or Stop Vital ] 09:18 AM Pt delayed until after Open heart team is ready for Impella standby. maría 01:21 PM Pt arrived to geochemical laboratory technician 2 at 13:21 [email or web address] 01:21 PM Chapito Pate RN Position: Monitor Time in: 13:21 maría 01:21 PM Tyler Camacho RN Position: Process Improvement Specialist Time in: 13:21 maría 01:21 PM Sites, Pat RT (R) Position: Scrub Time in: 13:21 [email or web address] : PM Case Delayed Scheduling issue jcan : PM [facility] PM Sign in performed according to hospital policy. Informed consent was obtained. jcallihan : PM Procedure start 13: jcallihan : PM CathStat : PM Time: 13:24 Patient comfortable and pain free: Yes [email or web address] PM Time: :24LOC: 5 = Fully awake and oriented or at pre-proc level [email or web address] PM Time: 13:24 Oxygen on at 2 L/min per nasal cannula by Tlyer Camacho RN [facility]28 PM Vitals capture started with the following parameters, Patient=Adult, Interval=5 min, Initial Xeyrhvop=154 mmHg, Deflation Rate=5 mmHg, Cuff placed on Right Arm 01:28 PM HR=90 bpm, LGTM=893/89 mmhg, FxU9=818.0 %, Resp=17 B/min, Comment=nsr 01:30 PM Time: 13:30 Versed 1 mg Intravenous Given by Tyler Camacho RN [facility] 01:34 PM HR=83 bpm, XOUX=829/86 mmhg, DnV9=076.0 %, Resp=20 B/min 01:38 PM HR=78 bpm, BKGA=405/66 mmhg, SpO2=99.0 %, Resp=23 B/min, Comment=nsr :39 PM Time: 13:24 Patient comfortable and pain free: Yes jcallihan :39 PM Time: :24LOC: 4 = Oriented but drowsy jcallihan :41 PM Time: 13:41 Versed 1 mg Intravenous Given by Tyler Camacho RN [facility] 01:43 PM HR=76 bpm, RMME=013/76 mmhg, SpO2=99.0 %, Resp=18 B/min, Comment=nsr 01:45 PM Time out was performed according to hospital policy. Conscious sedation and anesthesia was achieved (see medication log with in this report above) jcallihan :48 PM leg reminders applied to keep patient's legs from bending. jcallihan :48 PM HR=88 bpm, SRYZ=959/71 mmhg, SpO2=99.0 %, Resp=23 B/min, Comment=nsr 01:51 PM ASA Class CLASS IV- Severe systemic that is constant threat to patient's life [email or web address] 01:51 PM Time: 13:51 10 ml Lidocaine 2% to right groin Subcutaneous Given by Wiliam Scherer, DO jcallihan 01:51 PM Micro-Introducer Kit utilized for sheath placement [email or web address] 01:52 PM Access obtained by percutaneous puncture. 6Fr 10cm Terumo [place] sheath placed in right Femoral artery. [id number] jcallihan 01:53 PM Time: 13:53 10 ml Lidocaine 2% to left groin Subcutaneous Given by Wiliam Scherer DO jcallihan 01:53 PM HR=85 bpm, BNNA=109/72 mmhg, SpO2=98.0 %, Resp=22 B/min, Comment=nsr 01:54 PM 6Fr FR 4 catheter inserted over the wire DNC jcallihan 01:54 PM Time: 13:39 Patient comfortable and pain free: Yes [email or web address] 01:55 PM Time: 13:39LOC: 4 = Oriented but drowsy jcallihan 01:55 PM Recorded Pressure: Ao, HR=75, Condition=Condition 1 (Aorta) Ao 94/45/66 01:56 PM Catheter removed [email or web address] 01:56 PM 5Fr IM catheter inserted over the wire [id number] jcallihan 01:57 PM Wire removed jcallihan 01:58 PM 0.035 180cm Glidewire wire [id number] jcallihan 01:58 PM HR=80 bpm, KTAD=784/70 mmhg, SpO2=98.0 %, Resp=22 B/min, Comment=nsr 02:02 PM Left and right groin hand injected, images obtained jcallihan 02:03 PM Catheter removed jcallihan 02:04 PM HR=74 bpm, YXGB=478/73 mmhg, LzV6=195.0 %, Resp=17 B/min, Comment=nsr 02:04 PM 6Fr JL4 Runway guide catheter was used to cannulate the PCI vessel successfully. reused? No jcallihan 02:04 PM LCA angiography performed in multiple views. [email or web address] 02:09 PM HR=86 bpm, BUFC=694/69 mmhg, SpO2=98.0 %, Resp=24 B/min, Comment=nsr 02:09 PM Recorded Pressure: Ao, HR=85, Condition=Condition 1 (Aorta) Ao 110/56/79 02:10 PM Time: 13:55LOC: 4 = Oriented but drowsy [email or web address] 02:10 PM Time: 13:54 Patient comfortable and pain free: Yes [email or web address] 02:10 PM Catheter removed jcallihan 02:11 PM Micro-Introducer Kit utilized for sheath placement [email or web address] 02:11 PM Access obtained by percutaneous puncture. 7Fr 10cm Terumo [place] sheath placed in left Femoral artery. [id number] jcallihan 02:12 PM Recorded Pressure: Ao, HR=74, Condition=Condition 1 (Aorta) Ao 110/54/76 02:13 PM 6Fr FR 4 catheter inserted over the wire DNC (Left groin) [email or web address] 02:14 PM HR=92 bpm, VTEL=379/68 mmhg, SpO2=99.0 %, Resp=13 B/min, Comment=nsr 02:14 PM Time: 14:14 Versed 1 mg Intravenous Given by Tyler Camacho RN jclinda 02:15 PM Recorded Pressure: Ao, HR=88, Condition=Condition 1 (Aorta) Ao 116/57/82 02:15 PM Recorded Pressure: Ao, HR=78, Condition=Condition 1 (Aorta) Ao 112/55/78 02:19 PM HR=77 bpm, SFWZ=529/71 mmhg, SpO2=76.0 %, Resp=21 B/min, Comment=nsr 02:[address] Harman and Dr. Scherer took place for Impella placement for elective LMCA. [email or web address] 02:20 PM Amplatz Super Stiff crossed target lesion successfully [email or web address] 02:21 PM Inflation device was opened. [email or web address] 02:22 PM 7mm x 17mm Express LD Stent Peripheral inserted through target lesion. S/N [id number] jcallihan 02:22 PM Time: 14:22 Heparin 5000 units Intravenous Given by Tyler Camacho RN jclinda 02:24 PM Stent deployed @ 11 mady for 25 seconds [email or web address] 02:24 PM Recorded Pressure: Ao, HR=85, Condition=Condition 1 (Aorta) Ao 117/56/81 02:24 PM HR=90 bpm, SJWC=915/79 mmhg, Resp=23 B/min, Comment=nsr 02:25 PM Stent delivery system removed intact. [email or web address] 02:25 PM Time: 14:10 Patient comfortable and pain free: Yes [email or web address] 02:25 PM Time: 14:10LOC: 4 = Oriented but drowsy [email or web address] 02:27 PM 6mm x 17mm Express Biliary SD Stent Peripheral inserted through target lesion. S/N [id number] jcallihan 02:29 PM HR=73 bpm, GCQG=383/76 mmhg, SpO2=98.0 %, Resp=24 B/min, Comment=nsr 02:29 PM Stent deployed @ 11 mady for 25 seconds [email or web address] 02:29 PM Recorded Pressure: Ao, HR=99, Condition=Condition 1 (Aorta) Ao 87/49/66 02:29 PM Stent delivery system removed intact. [email or web address] 02:30 PM At 14:30 the ACT was 235 seconds. [email or web address] 02:31 PM Time: 14:30 Heparin 1000 units Intravenous Given by Tyler Camacho RN [email or web address] 02:31 PM Recorded Pressure: Ao, HR=80, Condition=Condition 1 (Aorta) Ao 117/55/78 02:31 PM 7 fr Sheath exchanged for a 14 Fr 30 cm Cook sheath [id number] (Left groin) [email or web address] 02:34 PM HR=83 bpm, LSHO=583/83 mmhg, SpO2=91.0 %, Resp=38 B/min 02:34 PM Recorded Pressure: Ao, HR=86, Condition=Condition 1 (Aorta) Ao 129/63/89 02:36 PM Time: 14:35 Morphine 2 mg Intravenous Given by Tyler Camacho RN jcbillan 02:38 PM 6Fr FR 4 catheter inserted over the wire DNC jcallihan 02:39 PM HR=70 bpm, IUHK=172/59 mmhg, SpO2=97.0 %, Resp=24 B/min, Comment=nsr 02:40 PM J Wire re-inserted. [email or web address] 02:40 PM Time: 14:25 Patient comfortable and pain free: Yes jcallihan 02:41 PM .018 Abiomed 260cm guide wire inserted through catheter. jcallihan 02:43 PM Recorded Pressure: Ao, HR=89, Condition=Condition 1 (Aorta) Ao 116/59/80 02:44 PM HR=73 bpm, VCJF=395/67 mmhg, SpO2=91.0 %, Resp=21 B/min 02:44 PM Impella Catheter inserted over .018 wire. [id number]. *ACC* catheter inserted 11 jcallihan 02:45 PM Impella catheter inserted accrossed valve and position in left ventricle. .018 wire removed. Catheter attached to pump. jcallihan 02:46 PM Impella Pump started in auto. jcallihan 02:47 PM .014 ChoICE PT Extra Support 300cm guide wire across target lesion- successful. reused? No (Right groin) jcallihan 02:48 PM 6Fr XB LAD 3.5 Cordis guide catheter was used to cannulate the PCI vessel successfully. reused? No jcallihan 02:49 PM HR=88 bpm, QQNQ=872/71 mmhg, OoH4=586.0 %, Resp=41 B/min, Comment=nsr 02:52 PM 2.0 mm x 15 mm Emerge Monorail balloon across target lesion- successful. reused? No jcallihan 02:54 PM HR=81 bpm, AVXK=723/94 mmhg, MjK3=190.0 %, Resp=23 B/min, Comment=nsr 02:55 PM PCI lesion in Mid LAD. Pre Stenosis: 95 Pre UBALDO Flow: 3: Complete and Brisk Flow/Perfusion jcallihan 02:56 PM PCI Status Elective jcallihan 02:56 PM Balloon inflated @ 12 mayd for 17 seconds jcallihan 02:58 PM Balloon catheter removed intact. jcallihan 02:59 PM HR=67 bpm, FHHL=972/102 mmhg, IoZ4=432.0 %, Resp=20 B/min, Comment=nsr 02:59 PM Recorded Pressure: Ao, HR=70, Condition=Condition 1 (Aorta) Ao 109/87/96 02:59 PM 2.25mm x 20mm Synergy drug-eluting stent across target lesion- successful Lot #[id number] jcallihan 03:02 PM Stent deployed @ 12 mady for 20 seconds [email or web address] 03:02 PM Stent delivery system removed intact. jcallihan 03:03 PM 2.5mm x 15mm Cordis EluNIR drug-eluting stent across target lesion- successful Lot #[id number] jcallihan 03:04 PM HR=70 bpm, FVCA=358/87 mmhg, SpO2=99.0 %, Resp=32 B/min, Comment=nsr 03:06 PM Balloon inflated @ 12 mady for 24 seconds [email or web address] 03:06 PM Time: 15:06 Versed 1 mg Intravenous Given by Tyler Camacho RN jcallihan 03:07 PM Stent delivery system removed intact. [email or web address] 03:08 PM 2.25mm x 20mm Synergy drug-eluting stent across target lesion- successful Lot #[id number] jcallihan 03:09 PM HR=71 bpm, BHWJ=061/40 mmhg, SpO2=99.0 %, Resp=29 B/min, Comment=nsr 03:10 PM Recorded Pressure: Ao, HR=80, Condition=Condition 1 (Aorta) Ao 112/90/98 03:11 PM Stent delivery system removed intact. undeployed, did not cross. jcallihan 03:12 PM 2.25mm x 12mm Synergy drug-eluting stent across target lesion- successful Lot #[id number] jcallihan 03:12 PM At 15:12 the ACT was >400 seconds. jcallihan 03:13 PM Stent deployed @ 6 mady for 12 seconds jcallihan 03:13 PM stent Balloon inflated @ 13 mady for 10 seconds jcallihan 03:14 PM Stent balloon reinflated @ 14 mady for 10 seconds jcallihan 03:14 PM Stent delivery system removed intact. jcallihan 03:14 PM HR=81 bpm, UUCI=694/98 mmhg, SpO2=91.0 %, Resp=19 B/min, Comment=nsr 03:18 PM 3.5mm x 8mm Cordis EluNIR drug-eluting stent across target lesion- successful Lot #[id number] jcallihan 03:20 PM HR=73 bpm, HRHG=689/102 mmhg, SpO2=88.0 %, Resp=18 B/min, Comment=nsr 03:20 PM Stent deployed @ 8 mady for 12 seconds jcallihan 03:22 PM Stent delivery system removed intact. jcallihan 03:22 PM .014 ChoICE PT Extra Support 300cm guide wire across target lesion- successful. reused? No (Second wire) jcallihan 03:24 PM HR=83 bpm, BMCL=391/92 mmhg, SpO2=91.0 %, Resp=17 B/min, Comment=nsr 03:27 PM 2.0mm x 15mm Emerge monorail re-inserted. jcallihan 03:29 PM HR=77 bpm, TPXL=732/100 mmhg, SpO2=91.0 %, Resp=22 B/min, Comment=nsr 03:30 PM Lesion found in Proximal LMCA. Pre Stenosis: 60 Pre UBALDO Flow: 3: Complete and Brisk Flow/Perfusion jcallihan 03:30 PM Left Main Coronary Artery with 60% stenosis jcallihan 03:30 PM Balloon catheter removed intact. jcallihan 03:30 PM Guide wire removed intact. from circ jcallihan 03:31 PM Guide catheter removed intact. jcallihan 03:32 PM Weaning off Impella. jcallihan 03:32 PM Perfusion in lab to assist with Impella device.Yes, entire case. jcallihan 03:32 PM Recorded Pressure: Ao, HR=76, Condition=Condition 1 (Aorta) Ao 97/72/82 03:34 PM HR=84 bpm, VZCW=691/77 mmhg, SpO2=96.0 %, Resp=19 B/min, Comment=nsr 03:36 PM Time: 14:40 Patient comfortable and pain free: Yes [email or web address] 03:36 PM Time: 14:40LOC: 4 = Oriented but drowsy jcallihan 03:36 PM Impella Pump turned off. jcallihan 03:37 PM Time: 15:37 Plavix 300 mg Orally Given by Tyler Camacho RN jcallihan 03:39 PM HR=79 bpm, WENA=060/73 mmhg, GeZ6=680.0 %, Resp=16 B/min, Comment=nsr 03:40 PM Procedure completed at 15:40 03/06/2018 [email or web address] 03:40 PM Did you address UBALDO flow and Dominance? Yes jcallihan 03:41 PM Sign out completed: Radiation Dose 1807 mGy, 25966 cGy/cm2 Fluoro Time: 23.2 Isovue 370 - 200ml contrast 275 ml given by Wiliam Scherer DO. Complications: None. The patient was discharged out of the minilab operator in stable condition. Cardiac Rehab Consult needed: YesConfirmed administered medications: Yes jcallihan 03:41 PM Isovue 370 - 200ml,2 Bottle(s) used. jcallihan 03:41 PM Sheath left in place to be pulled on floor/holding areaV+Pad X2 jcallihan 03:41 PM Estimated Blood Loss: less than 50cc jcallihan 03:41 PM Post ECG NSR jcallihan 03:41 PM Post Blood Pressure 120/73 jcallihan 03:44 PM HR=87 bpm, ZHHD=632/72 mmhg, GcJ9=425.0 %, Resp=14 B/min, Comment=nsr 03:45 PM At 15:45 the ACT was 250 seconds. jcallihan 03:45 PM 15:45 Post Pulses Bilateral DP & PT 1+ jcallihan 03:45 PM Information taught Cardiac Cath and PCI jcallihan 03:46 PM Education needs Procedure, Plan of Care, and Responsibilities of Patient in Care jcallihan 03:46 PM Learning barriers :None jcallihan 03:46 PM Education Methods Verbal jcallihan 03:46 PM Education evaluation Able to repeat information jcallihan 03:46 PM Site status No bleeding/hematoma - Rt Groin/Lt Groin as reported by Sites, Pat RT (R) at 15:46 jcallihan 03:46 PM Opsite applied jcallihan 03:46 PM Plavix, Effient or Brilinta given Yes jcallihan 03:47 PM Coronary Dominance: right jcallihan 03:47 PM Complications: None jcallihan 03:48 PM Family placed in consult room. jcallihan 03:49 PM Vitals capture stopped. 04:07 PM Report given to Lupe QUINONEZ Pt taken to ICU Room #12. 16:07 jcallihan 04:08 PM Patient out of room: 16:08 jcallihan 04:09 PM Lesion found in Proximal RCA. Pre Stenosis: 100 Pre UBALDO Flow: [email or web address] 04:09 PM Right Coronary, Right Posterior Descending Arteries with Right Posterolateral and Acute Marginal branches with 100 % stenosis. If graft is supplying this area, 0 % stenosis jcallihan 04:10 PM Lesion found in Proximal LAD. Pre Stenosis: 80 Pre UBALDO Flow: 3: Complete and Brisk Flow/Perfusion jcallihan 04:10 PM Lesion found in Proximal Circumflex. Pre Stenosis: 100 Pre UBALDO Flow: jcallihan 04:11 PM Proximal Left Anterior Descending Coronary Artery with 80% stenosis. If graft is supplying this territory, 0 % stenosis. jcallihan 04:11 PM Circumflex, Obtuse Marginal, Left Posterior Descending, and Left Posterolateral Coronary Arteries with 100 % stenosis. If graft is supplying this area, 0 % stenosis jcallihan 04:11 PM Mid/Distal Left Anterior Descending Coronary Artery and diagonal branches with 95% stenosis. If graft is supplying this area, 0 % stenosis jcallihan Complications Complication None None Hemodynamics Pressures Site Systolic/A Wave Diastolic/V Wave Mean AO 94 45 66 AO 110 56 79 AO 110 54 76 AO 116 57 82 AO 112 55 78 AO 117 56 81 AO 87 49 66 AO 117 55 78 AO 129 63 89 AO 116 59 80 AO 109 87 96 AO 112 90 98 AO 97 72 82 Post Procedure Information Blood Pressure: 120/73 mmHg Rhythm: NSR Post procedural instructions were given Closure Device Time Device Success/Fail Manual Compression Manual Compression Site Checks Time Location Status Staff Sheath In? Note 03:46 PM Rt Groin/Lt Groin No bleeding/hematoma Sites, Pat RT (R) Pulses Time Site Pre-Procedure Post-Procedure Note 03/06/2018 8:00:00 AM Bilateral DP & PT 1+ 03/06/2018 8:00:00 AM Bilateral radial 2+ 3:45:00 PM Bilateral DP & PT 1+ Updated by Chapito Pate RN on 03/06/2018 4:35:43 PM electronically signed on 03/06/2018 4:36:29 PM with status of Final
[2018-03-06] MEDS ORDERED: *HR* Atropine Sulfate 1 MG/10 ML SYRINGE ONE (17:39)
[2018-03-06] MEDS ORDERED: Ondansetron 4 MG/2 ML VIAL IVP PRN (17:58)
[2018-03-06] MEDS ORDERED: Furosemide 40 MG TABLET PO PRN (20:34)
[2018-03-07] MEDS: 0.9 % Sodium Chloride 1,000 ML IVC SCH ×2 (02:41→07:22)
[2018-03-07 07:12] LABS: BUN/Creatinine Ratio 35 (6-26); Blood Urea Nitrogen 37 mg/dL (8-23); Calcium 8.9 mg/dL (8.6-10.3); Carbon Dioxide 19 mEq/L (23-29); Chloride 103 mEq/L (98-107); Glucose 164 mg/dL (70-105); Osmolality,Calculated 290 (280-300); Potassium 4.2 mEq/L (3.5-5.1); Sodium 134 mEq/L (136-145); eGFR For Non-African Americans > 60 (> 60)
[2018-03-07] MEDS ORDERED: Aspirin 81 MG TAB.CHEW PO SCH (09:00)
[2018-03-07 11:09] LABS: Basophils # 0.1 K/mcL (0.0-0.2); Basophils % 0.7 %; Eosinophils # 0.2 K/mcL (0.0-0.6); Eosinophils % 1.9 %; Hematocrit 33.5 % (37.5-50.1); Hemoglobin 10.6 g/dL (12.9-16.9); Immature Granulocytes % 1.3 % (0-4); Lymphocytes # 0.7 K/mcL (0.6-4.6); Lymphocytes % 7.1 %; Mean Corpuscular HGB Conc 31.6 g/dL (31.6-35.5); Mean Corpuscular Hemoglobin 31.5 pg (28.0-33.3); Mean Corpuscular Volume 99.4 fL (83.0-100.0); Mean Platelet Volume 10.6 fL (9.4-12.4); Monocytes # 0.9 K/mcL (0.0-1.3); Monocytes % 8.9 %; Neutrophils # 8.1 K/mcL (1.6-8.9); Platelet Count 248 K/mcL (140-400); Red Blood Count 3.37 M/mcL (4.19-5.50); Red Cell Distribution Width 14.6 % (11.5-14.5); Segmented Neutrophils % 80.1 %
--- NOTE | 2018-03-07 11:25 | Cardiology Progress Note ---
Date of Encounter: 03/07/18 Time of Encounter: 10:30 Assessment and Plan (1) Coronary artery disease Current Visit: Yes Status: Chronic Elective high-risk PCI with Dr. Scherer on 03/06/18; underwent PCI to prox-mid LAD with use of impella during case. 2017: EF 35% Labs, vitals, and telemetry stable. Bilateral groin cath sites are stable, dressing C/D/I. Patient reports generally feels unwell today, discussed with Dr. Apodaca, will obtain limited TTE to assess EF, presence of effusion. Continue uninterrupted DAPT (asa + plavix) for a minimum of 1 year, continue BB and statin. Will step down out of ICU today, recommend 2N. Qualifiers: Coronary Disease-Associated Artery/Lesion type: [place] artery [place] vs. transplanted heart: [place] heart Associated angina: without angina Qualified Code(s): I25.10 - Atherosclerotic heart disease of [place] coronary artery without angina pectoris (2) CHF (congestive heart failure) Current Visit: Yes Status: Chronic Recently diagnosed with systolic CHF--chronicity unclear. TTE 35% February, no prior TTE for comparison. Clinically appears euvolemic upon exam. Will continue current medical therapy including BB, ACEi. Will change lopressor to Toprol (as per home) in AM. Qualifiers: Heart failure type: systolic Heart failure chronicity: chronic Qualified Code(s): I50.22 - Chronic systolic (congestive) heart failure (3) Nausea Current Visit: Yes Status: Acute Reports nausea, has been present for nearly a week. Patient reports may be secondary to Levaquin (recent dx of PNA). Also notes has not been eating well nor has had a BM. PRN col lizzyace. Continue to monitor. (4) Atrial fibrillation Current Visit: No Status: Chronic Rate controlled on BB. Plan to resume Xarelto in AM if able. Qualifiers: Atrial fibrillation type: persistent Qualified Code(s): I48.1 - Persistent atrial fibrillation Discussion w patient/family: The assessment and plan as outlined above was discussed with the patient and/or family members who expressed understanding and agreement. All questions were answered. Thank you for involving us in the care of your patient. Please call with any questions. The patient will be discussed and reviewed with Dr. Apodaca; changes to be made accordingly. Subjective Principal diagnosis: s/p LAD PCI Interval history: Seen and examined. Pale appearing, generally feels unwell. No chest pain reported. Reports nausea--however has been present for a week. Bilateral groin cath sites appear normal, no hematoma or bleeding. Pulses present per doppler. Objective Vital Signs, Last 4 Hours Temp Pulse Resp BP Pulse Ox 03/07/18 09:00 86 16 127/78 93 03/07/18 08:00 92 18 109/70 92 03/07/18 07:27 96.6 F L General: Conversant, Other (chronically ill appearing, pale) HEENT: Atraumatic, Normocephaly Cardiac: Other (irregularly irregular) Lungs: Normal Breath Sounds Neuro: Alert and responsive Abdomen: Soft Skin: No rashes noted on visualized skin Musculoskeletal: No Chest Wall Tenderness Extremities: No Edema, Other (pulses per doppler signal) Other: bilateral groin cath site: no hematoma, mild scattered ecchymosis at site. No bleeding. Dressings C/D/I Results 03/07/18 10:56 03/07/18 05:44 Lab Results 03/07/18 03/07/18 05:44 10:56 WBC 10.1 Hgb 10.6 L Hct 33.5 L Plt Count 248 Sodium 134 L Potassium 4.2 Chloride 103 Carbon Dioxide 19 L BUN 37 H Creatinine 1.05 Glucose 164 H Calcium 8.9 Active Medications Aspirin (Aspirin) 81 mg PO DAILY [facility] Stop: 09/06/18 09:01 Clopidogrel Bisulfate (Plavix) 75 mg PO DAILY [facility] Stop: 09/06/18 09:01 Docusate Sodium (Colace) 100 mg PO DAILY [facility] PRN Reason: Protocol Stop: 09/06/18 11:31 Furosemide (Lasix) 40 mg PO DAILY PRN PRN Reason: swelling Stop: 09/05/18 20:35 Losartan Potassium (Cozaar) 25 mg PO DAILY [facility] PRN Reason: Protocol Stop: 09/06/18 09:01 Metoprolol Tartrate (Lopressor) 12.5 mg PO BID [facility] Stop: 09/05/18 21:01 Ondansetron HCl (Zofran) 4 mg IVP Q8HR PRN PRN Reason: Nausea And Vomiting Stop: 09/05/18 17:59 Rosuvastatin Calcium (Crestor) 40 mg PO HS [facility] Stop: 09/05/18 21:01 - Imaging and Cardiology Echo: report reviewed Cardiac cath: report reviewed Other Results: 12 hour tele: avg HR=83 afib. Significant artifact present. - EKG Interpretation EKG results cardiology: personally reviewed - VTE Reasons for not Prescribing Prophylaxis: Not indicated-Anticoagulated or INR therapeutic Consult Discharge Plan - Plan Referrals: Randy Jose MD [Primary Care Provider] -
[2018-03-07] MEDS ORDERED: Ondansetron 4 MG/2 ML VIAL IVP PRN (11:38)
[2018-03-07] MEDS ORDERED: Furosemide 40 MG TABLET PO PRN (11:38)
[2018-03-07] MEDS: *HR* Heparin 5,000 UNIT/ML VIAL SQ SCH (18:25)
[2018-03-07] MEDS ORDERED: Perflutren Lipid Microsphere 1.3 ML in 0.9 % Sodium Chloride 8.7 ML IVP ONE (20:08)
[2018-03-08 04:20] LABS: Basophils # 0.1 K/mcL (0.0-0.2); Basophils % 0.5 %; Eosinophils # 0.1 K/mcL (0.0-0.6); Eosinophils % 1.1 %; Hematocrit 32.7 % (37.5-50.1); Hemoglobin 10.5 g/dL (12.9-16.9); Lymphocytes # 0.9 K/mcL (0.6-4.6); Lymphocytes % 6.9 %; Mean Corpuscular HGB Conc 32.1 g/dL (31.6-35.5); Mean Corpuscular Hemoglobin 31.3 pg (28.0-33.3); Mean Corpuscular Volume 97.6 fL (83.0-100.0); Mean Platelet Volume 10.5 fL (9.4-12.4); Monocytes # 1.4 K/mcL (0.0-1.3); Platelet Count 262 K/mcL (140-400); Red Blood Count 3.35 M/mcL (4.19-5.50); Red Cell Distribution Width 14.6 % (11.5-14.5); Segmented Neutrophils % 79.5 %
[2018-03-08] MEDS: *HR* Heparin 5,000 UNIT/ML VIAL SQ SCH (05:14)
[2018-03-08 06:13] LABS: BUN/Creatinine Ratio 31 (6-26); Blood Urea Nitrogen 35 mg/dL (8-23); Calcium 8.6 mg/dL (8.6-10.3); Carbon Dioxide 23 mEq/L (23-29); Chloride 100 mEq/L (98-107); Glucose 271 mg/dL (70-105); Osmolality,Calculated 288 (280-300); Potassium 4.4 mEq/L (3.5-5.1); Sodium 130 mEq/L (136-145); eGFR For Non-African Americans > 60 (> 60)
[2018-03-08] MEDS: Metoprolol XL (24 HR) Succ 25 MG TAB.ER.24H PO SCH (07:35)
[2018-03-08] MEDS: Aspirin 81 MG TAB.CHEW PO SCH (07:35)
--- NOTE | 2018-03-08 10:44 | Cardiology Progress Note ---
Date of Encounter: 03/08/18 Time of Encounter: 10:00 Assessment and Plan (1) Coronary artery disease Current Visit: Yes Status: Chronic Elective high-risk PCI with Dr. Scherer on 03/06/18; underwent PCI to prox-mid LAD with use of impella during case. 2017: EF 35% Labs, vitals, and telemetry stable. Bilateral groin cath sites are stable, dressing removed today, sites are stable. Limited TTE 03/07/18: LVEF 25-30%, no LV thrombus, small inferior/inferolateral pericardial effusion; reviewed with Dr. Apodaca, likely r/t high risk PCI. Will need to repeat limited TTE in a few weeks to re-evaluate. No chest pain. Discussed with Dr. Apodaca, due to advanced age, multiple co- morbidities, recommend additional 24 hours of monitoring. Will restart Xarelto this evening and recheck H/H in AM to ensure H/H is stable prior to d/c. Of note , patient is on triple therapy--asa, plavix, and Xarelto. OOB to chair with assist. Continue uninterrupted DAPT (asa + plavix) for a minimum of 1 year, continue BB and statin. Will step down out of ICU today, recommend 2N. Qualifiers: Coronary Disease-Associated Artery/Lesion type: [place] artery [place] vs. transplanted heart: [place] heart Associated angina: without angina Qualified Code(s): I25.10 - Atherosclerotic heart disease of [place] coronary artery without angina pectoris (2) CHF (congestive heart failure) Current Visit: Yes Status: Chronic Recently diagnosed with systolic CHF--chronicity unclear. TTE 35% February, no prior TTE for comparison. Clinically appears euvolemic upon exam. Will continue current medical therapy including BB, ACEi. Will change lopressor to Toprol (as per home) in AM. Qualifiers: Heart failure type: systolic Heart failure chronicity: chronic Qualified Code(s): I50.22 - Chronic systolic (congestive) heart failure (3) Nausea Current Visit: Yes Status: Acute Reports nausea, has been present for nearly a week--improved today. Patient reports may be secondary to Levaquin (recent dx of PNA). Also notes has not been eating well nor has had a BM. PRN lizzy, colace. Continue to monitor. (4) Atrial fibrillation Current Visit: No Status: Chronic Rate controlled on BB. Plan to resume Xarelto this evening. Recheck CBC in AM to ensure H/H is stable in am prior to d/c. Qualifiers: Atrial fibrillation type: persistent Qualified Code(s): I48.1 - Persistent atrial fibrillation Discussion w patient/family: The assessment and plan as outlined above was discussed with the patient and/or family members who expressed understanding and agreement. All questions were answered. Thank you for involving us in the care of your patient. Please call with any questions. The patient will be discussed and reviewed with Dr. Apodaca; changes to be made accordingly. Subjective Principal diagnosis: s/p LAD PCI Interval history: Seen and examined. Patient reports no complaints today, reports feels much better. Described right shoulder discomfort--has been present for several days s/p flu vaccination, worsens with passive arm movement. Nausea improved. Bilateral groin cath sites appear normal, no hematoma or bleeding. Pulses present per doppler. Objective Vital Signs, Last 4 Hours Temp Pulse Resp BP Pulse Ox 03/08/18 07:45 86 03/08/18 07:18 97.4 F L 99 16 122/68 100 General: Conversant, No Apparent Distress, Other (elderly, pale) HEENT: Atraumatic, Normocephaly Cardiac: Reg Rate and Rhythm, Normal S1 and S2 Lungs: Normal Breath Sounds Neuro: Alert and responsive Abdomen: Soft Skin: No rashes noted on visualized skin Musculoskeletal: No Chest Wall Tenderness Extremities: No Edema Other: bilateral groin cath site: dressings removed. No hematomas present. No active bleeding. L groin site--mild-moderate amount of soft ecchymosis present. Right groin--no ecchymosis or bruising noted. Results 03/08/18 04:03 03/08/18 05:31 Lab Results 03/07/18 03/08/18 03/08/18 10:56 04:03 05:31 WBC 10.1 12.6 H Hgb 10.6 L 10.5 L Hct 33.5 L 32.7 L Plt Count 248 262 Sodium 130 L Potassium 4.4 Chloride 100 Carbon Dioxide 23 BUN 35 H Creatinine 1.13 Glucose 271 H Calcium 8.6 Active Medications Aspirin (Aspirin) 81 mg PO DAILY [facility] Stop: 09/06/18 09:01 Last Admin: 03/08/18 07:35 Dose: 81 mg Clopidogrel Bisulfate (Plavix) 75 mg PO DAILY [facility] Stop: 09/06/18 09:01 Last Admin: 03/08/18 07:35 Dose: 75 mg Docusate Sodium (Colace) 100 mg PO DAILY [facility] PRN Reason: Protocol Stop: 09/06/18 11:31 Last Admin: 03/08/18 07:37 Dose: 100 mg Furosemide (Lasix) 40 mg PO DAILY PRN PRN Reason: swelling Stop: 09/05/18 20:35 Losartan Potassium (Cozaar) 25 mg PO DAILY [facility] PRN Reason: Protocol Stop: 09/06/18 09:01 Last Admin: 03/08/18 07:37 Dose: 25 mg Metoprolol Succinate (Toprol Xl) 25 mg PO DAILY [facility] Stop: 09/07/18 09:01 Last Admin: 03/08/18 07:35 Dose: 25 mg Ondansetron HCl (Zofran) 4 mg IVP Q8HR PRN PRN Reason: Nausea And Vomiting Stop: 09/05/18 17:59 Last Admin: 03/07/18 15:09 Dose: 4 mg Rivaroxaban (Xarelto) 20 mg PO 1700 [facility] Stop: 09/07/18 17:01 Rosuvastatin Calcium (Crestor) 40 mg PO HS [facility] Stop: 09/05/18 21:01 Last Admin: 03/07/18 20:10 Dose: 40 mg - Imaging and Cardiology Echo: report reviewed Cardiac cath: report reviewed Other Results: 12 hour tele: avg HR=94 afib, no events. - EKG Interpretation EKG results cardiology: personally reviewed - VTE Reasons for not Prescribing Prophylaxis: Not indicated-Anticoagulated or INR therapeutic Consult Discharge Plan - Plan Referrals: Leelee Lin CNP [Partnered Physician] - (office will call patient at home with follow up appointment) Randy Jose MD [Primary Care Provider] - 03/14/18 9:30 am
[2018-03-08 13:11] LABS: Bilirubin,Urine Small (Negative); Blood,Urine Negative (Negative); Clarity,Urine Clear (Clear); Color,Urine Yellow (Yellow); Glucose,Urine (UA) 500 mg/dL (Normal); Ketones,Urine Negative (Negative); Leukocyte Esterase,Urine Negative (Negative); Nitrite,Urine Negative (Negative); Protein,Urine 100 mg/dL (Neg-Trace); Specific Gravity,Urine 1.025 (1.010-1.025); Urobilinogen,Urine Normal (Normal)
[2018-03-08 13:13] LABS: Bacteria,Urine None Seen per hpf (None-Few); Squamous Epithelial Cell,Urine Many per lpf (None-Few)
[2018-03-08 13:38] LABS: Amorphous Sediment,Urine Few (Few); Granular Casts,Urine Few per lpf (None Seen); Hyaline Casts,Urine Few per lpf (None-Few)
[2018-03-08] MEDS: *HR* Rivaroxaban 10 MG TABLET PO SCH (17:15)
[2018-03-08] MEDS ORDERED: *HR* Dextrose 50 % in Water (Syg) 50 ML SYRINGE IVP PRN (20:36)
[2018-03-08] MEDS ORDERED: Dextrose Gel 15 GM/37.5 ML TUBE PO PRN ×2 (20:36)
[2018-03-08] MEDS ORDERED: D5% in Water 1,000 ML IVC PRN (20:36)
[2018-03-08] MEDS ORDERED: Insulin LISPRO 300 UNITS/3 ML VIAL SQ ONE (20:44)
[2018-03-08] MEDS: Insulin LISPRO 300 UNITS/3 ML VIAL SQ SCH (20:52)
[2018-03-09 05:03] LABS: Basophils % 0.3 %; Eosinophils # 0.4 K/mcL (0.0-0.6); Eosinophils % 3.1 %; Hematocrit 31.2 % (37.5-50.1); Hemoglobin 9.9 g/dL (12.9-16.9); Immature Granulocytes % 0.7 % (0-4); Lymphocytes # 1.1 K/mcL (0.6-4.6); Mean Corpuscular HGB Conc 31.7 g/dL (31.6-35.5); Mean Corpuscular Volume 97.8 fL (83.0-100.0); Mean Platelet Volume 10.6 fL (9.4-12.4); Monocytes # 1.3 K/mcL (0.0-1.3); Monocytes % 11.1 %; Platelet Count 241 K/mcL (140-400); Red Blood Count 3.19 M/mcL (4.19-5.50); Red Cell Distribution Width 14.6 % (11.5-14.5); Segmented Neutrophils % 75.8 %
[2018-03-09 05:22] LABS: BUN/Creatinine Ratio 29 (6-26); Blood Urea Nitrogen 34 mg/dL (8-23); Calcium 8.6 mg/dL (8.6-10.3); Carbon Dioxide 25 mEq/L (23-29); Chloride 101 mEq/L (98-107); Glucose 204 mg/dL (70-105); Osmolality,Calculated 283 (280-300); Sodium 130 mEq/L (136-145); eGFR For Non-African Americans 59 (> 60)
[2018-03-09] MEDS: Aspirin 81 MG TAB.CHEW PO SCH (07:28)
[2018-03-09] MEDS: Metoprolol XL (24 HR) Succ 25 MG TAB.ER.24H PO SCH (07:28)
[2018-03-09] MEDS: Insulin LISPRO 300 UNITS/3 ML VIAL SQ SCH ×4 (07:29→19:59)
--- NOTE | 2018-03-09 09:26 | Discharge Summary ---
- NOTES TO OUTPATIENT PROVIDER Notes to Outpatient Provider: Needs f/u TTE in 2 weeks to assess small pericardial effusion. Orders not resulted at time of discharge: Pending orders 03/06/18 07:44 CL Cardiac Catheterization [CL] Routine 03/06/18 15:48 ECG 12 lead ECG [ECG] Routine ECG 12 lead ECG [ECG] Stat 03/07/18 07:00 ECG 12 lead ECG [ECG] Routine 03/08/18 10:34 EKG [ECG 12 lead ECG] [ECG] Stat Date of Encounter: 03/09/18 Time of Encounter: 09:24 - Discharge Diagnosis (1) Coronary artery disease Priority: Primary Status: Chronic Comments: Known CAD presents for high risk PCI. Qualifiers: Coronary Disease-Associated Artery/Lesion type: [place] artery [place] vs. transplanted heart: [place] heart Associated angina: without angina Qualified Code(s): I25.10 - Atherosclerotic heart disease of [place] coronary artery without angina pectoris (2) Atrial fibrillation Priority: Secondary Status: Chronic Qualifiers: Atrial fibrillation type: persistent Qualified Code(s): I48.1 - Persistent atrial fibrillation (3) CHF (congestive heart failure) Priority: Secondary Status: Chronic Qualifiers: Heart failure type: systolic Heart failure chronicity: chronic Qualified Code(s): I50.22 - Chronic systolic (congestive) heart failure (4) Nausea Priority: Secondary Status: Resolved - Hospital Course Hospital course: Mr. Marshall is a 83 year old male - Time Spent with Patient Total time spent providing and/or coordinating discharge services: - Discharge Medications Home Medications: Losartan [Cozaar] 25 mg PO DAILY 02/04/18 [History] Metoprolol Succinate [Toprol Xl] 50 mg PO DAILY 02/04/18 [History] Atorvastatin [Lipitor] 40 mg PO HS 30 Days #30 tablet 02/07/18 [Rx] Clopidogrel [Plavix] 75 mg PO DAILY 30 Days #30 tablet 02/07/18 [Rx] Metformin HCl [Glucophage] 1,000 mg PO BID 02/24/18 [History] Rivaroxaban [Xarelto] 20 mg PO DAILY 02/24/18 [History] Furosemide [Lasix] 40 mg PO DAILY PRN 30 Days #30 tablet 02/26/18 [Rx] Aspirin [Lo-Dose Aspirin EC] 81 mg PO DAILY 03/08/18 [History] Allergies/Adverse Reactions: 3 Allergy/AdvReac Type Severity Reaction Status Date / Time Penicillins [PCN] Allergy Rash Verified 03/08/18 18:02 Date of admission: 03/07/18 15:49 Primary care physician: Randy Jose MD Consults: 03/06/18 15:48 Consult to Cardiac Rehabilitation-Phase1 [CONS] Routine Comment: Reason for Consult: AMI Call Completed: Yes Consult to Nurse Navigator [CONS] Routine Comment: Discharging clinician: Stas Barron Anticipated date of discharge: 03/09/18 Physical Examination Vital Signs, Last 4 Hours Temp Pulse Resp BP Pulse Ox 03/09/18 07:04 97.9 F 89 19 110/71 96 General: Conversant, No Apparent Distress HEENT: Atraumatic, Normocephaly, Mucus Membranes Moist Neck: No JVD, Normal carotid pulses Cardiac: Reg Rate and Rhythm, Normal S1 and S2, No Murmur Lungs: Normal Breath Sounds, No Wheeze, Rales, Rhonchi Neuro: Alert and responsive, No focal deficits noted Abdomen: Soft, Non-Tender Skin: No rashes noted on visualized skin Musculoskeletal: No Chest Wall Tenderness Extremities: No Clubbing, No Cyanosis, No Edema, Normal Pulses, Other ( Bilateral groin soft, no hematoma) - Patient Status Disposition: Home, Self-Care Condition: Fair - Discharge Instructions Follow Up With: Leelee Lin CNP [Partnered Physician] - (office will call patient at home with follow up appointment) Randy Jose MD [Primary Care Provider] - 03/14/18 9:30 am Additional Instructions: RISK FACTORS: STOP SMOKING: If you smoke, STOP. Smoking or tobacco use significantly increases your risk of heart disease because nicotine causes the arteries to narrow or constrict. It also causes fats to stick to the artery. Your chances of having a heart attack are greatly increased if you continue to smoke. For more information, call the education line for smoking cessation 3-337-SRQYEEZ EAT A LOW FAT/CHOLESTEROL/SODIUM DIET: This diet may help reduce your chances of having a heart attack. LIFTING: Avoid lifting anything more than 10 pounds for 5-7 days Prior to straining, laughing, sneezing and/or coughing, apply manual pressure directly over insertion site. ACTIVITY: You may walk or climb stairs as tolerated You can resume sexual activity as tolerated In general, you are encouraged to engage in a minimum of 30 minutes or more of moderate intensity physical activity, such as brisk walking, daily or at least 3 -4 times weekly BATHING Do not submerge the site into water (bath tub, hot tub, swimming pool) for 1 week. This can be a source for infection into the blood stream. You may shower after 24 hours SITE CARE: After 24 hours, you may remove the dressing and leave the site open to air. Keep the site clean and dry. Clean gently and pat dry. You can expect bruising and tenderness that gradually resolve within a week or two. Return to work as instructed per your physician Resume driving as instructed per physician Keep all scheduled follow up appointments Resume medications as instructed IMPORTANT: If prescribed a Platelet Aggregation Inhibitor such as, Plavix, Brilinta or Effient: Duration of therapy is minimum one year These medications are often used in combination with Aspirin in prevention of future heart attacks Never discontinue unless consult with your [employer] STROKE (CVA) Risk factors for a stroke are: Age, cigarette smoking, diabetes, excessive alcohol consumption, family history, high blood pressure, overweight, physical inactivity, prior stroke, heart attack, diagnosis of carotid artery stenosis or other artery disease. Warning signs: Sudden numbness or weakness of the face, arm or leg; especially on one side of the body, sudden confusion, trouble speaking or understanding, sudden trouble seeing in one or both eyes, sudden trouble walking, dizziness, loss of balance or coordination, sudden severe headache with no cause. Call 911 or go to the Emergency Room. CONGESTIVE HEART FAILURE: If you have been diagnosed with Congestive Heart Failure (CHF) and your symptoms return, make an appointment with your physician Weigh yourself daily. Notify your physician if you have a weight gain of two or more pounds in one day or five or more pounds in one week. If you experience any difficulty breathing, please call 911 BLEEDING: Although the risk of bleeding is minimal, it can happen. If you have any bleeding from the site, apply firm pressure above the puncture site for 10-15 minutes. If the bleeding does not stop, continue manual pressure and call 911 Contact your physician if: You develop a fever greater than 101 degrees Fahrenheit Your site becomes reddened or has any drainage You have an increase in pain or burning at the site or if a large knot forms at the site. If you experience chest pain, shortness of breath, dizziness, or extreme tiredness, stop the activity and rest. Please notify your physicians office if you experience any of these symptoms and they are not relieved by rest please call 911! - VTE Reasons for not Prescribing Prophylaxis: Not indicated-Anticoagulated or INR therapeutic
--- NOTE | 2018-03-09 13:24 | Cardiology Progress Note ---
Date of Encounter: 03/09/18 Time of Encounter: 13:22 Assessment and Plan (1) Coronary artery disease Current Visit: Yes Status: Chronic Patient presented for elective high-risk PCI with Dr. Scherer on 03/06/18. He underwent PCI to prox-mid LAD with use of impella during case. TTE 2017: EF 35% Vitals and telemetry stable. Bilateral groin cath sites are stable. No hematoma or redness. Limited TTE 03/07/18: LVEF 25-30%, no LV thrombus, small inferior/inferolateral pericardial effusion; reviewed with Dr. Apodaca, likely r/t high risk PCI. Will need to repeat limited TTE in a few weeks to re-evaluate. He was restarted on Xarelto yesterday for history of A. fib. Of note, patient is on triple therapy with aspirin, Plavix, and Xarelto. He appears to currently be tolerating. Importance of compliance with medications and continuing uninterrupted DAPT with aspirin and Plavix for minimum of 1 year discussed. Continue statin and beta gabriella. Plan for PT/OT eval today and possible discharge tomorrow pending recommendations. Qualifiers: Coronary Disease-Associated Artery/Lesion type: [place] artery [place] vs. transplanted heart: [place] heart Associated angina: without angina Qualified Code(s): I25.10 - Atherosclerotic heart disease of [place] coronary artery without angina pectoris (2) Leukocytosis Current Visit: Yes Status: Acute Noted to have mild leukocytosis. May be reactive to recent procedure. UA obtained yesterday was negative for nitrates or leukocyte esterase. It is noted that he has rails on exam in the posterior right lower lobe. Reports history of recent pneumonia and antibiotic. Currently afebrile but appears mildly short of breath. He was noted to have confusion during stay. Check chest x-ray. If evidence of pneumonia will consult hospitalist for further recommendation. Qualifiers: Leukocytosis type: unspecified Qualified Code(s): D72.829 - Elevated white blood cell count, unspecified (3) Atrial fibrillation Current Visit: No Status: Chronic Rate controlled on BB. Plan to resume Xarelto this evening. Recheck CBC in AM to ensure H/H is stable in am prior to d/c. Qualifiers: Atrial fibrillation type: persistent Qualified Code(s): I48.1 - Persistent atrial fibrillation (4) CHF (congestive heart failure) Current Visit: Yes Status: Chronic Recently diagnosed with systolic CHF--chronicity unclear. TTE 35% February, no prior TTE for comparison. On exam today he appears mildly short of breath. Rales noted in the right posterior lower lobe. Nursing staff instructed to give his when necessary Lasix dose. Chest x-ray is pending. Continue strict I&O and daily weights. Continue Toprol and GEORGE inhibitor. Qualifiers: Heart failure type: systolic Heart failure chronicity: chronic Qualified Code(s): I50.22 - Chronic systolic (congestive) heart failure (5) Nausea Current Visit: Yes Status: Resolved Reports nausea, has been present for nearly a week--improved today. Patient reports may be secondary to Levaquin (recent dx of PNA). Also notes has not been eating well nor has had a BM. PRN zofran, colace. Continue to monitor. (6) Physical deconditioning Current Visit: Yes Status: Acute Physical deconditioning secondary to recent pneumonia and hospital stay. PT/OT consult. Discussion w patient/family: The assessment and plan as outlined above was discussed with the patient and/or family members who expressed understanding and agreement. All questions were answered. Thank you for involving us in the care of your patient. Please call with any questions. Subjective Principal diagnosis: s/p LAD PCI Interval history: Mr. Marshall is laying in bed with no complaints. He is noted to have weakness per family and staff. Reports recent diagnosis of pneumonia and being on an antibiotic. During his stay he is noted to have some mild confusion at night. UA was completed and negative for nitrates or leukoesterase. Objective Vital Signs, Last 4 Hours Temp Pulse Resp BP Pulse Ox 03/09/18 11:32 97.4 F L 83 18 112/68 99 03/09/18 11:00 93 General: Conversant, No Apparent Distress HEENT: Atraumatic, Normocephaly, Mucus Membranes Moist Neck: No JVD, Normal carotid pulses Cardiac: Reg Rate and Rhythm, Normal S1 and S2, No Murmur Lungs: Other (Rales noted in right lower lobe. Respirations easy at rest but noted to have mild dyspnea with conversation.) Neuro: Alert and responsive, No focal deficits noted Abdomen: Soft, Non-Tender Skin: No rashes noted on visualized skin Musculoskeletal: No Chest Wall Tenderness Extremities: No Clubbing, No Cyanosis, No Edema, Normal Pulses, Other ( Bilateral femoral access sites without hematoma. Mild ecchymosis noted) Results 03/09/18 04:35 03/09/18 04:35 Lab Results 03/09/18 03/09/18 04:35 04:35 WBC 11.8 H Hgb 9.9 L Hct 31.2 L Plt Count 241 Sodium 130 L Potassium 4.0 Chloride 101 Carbon Dioxide 25 BUN 34 H Creatinine 1.19 Glucose 204 H Calcium 8.6 - Imaging and Cardiology Echo: report reviewed Cardiac cath: report reviewed - EKG Interpretation EKG results cardiology: personally reviewed - VTE Reasons for not Prescribing Prophylaxis: Not indicated-Anticoagulated or INR therapeutic Consult Discharge Plan - Plan Additional Instructions: RISK FACTORS: STOP SMOKING: If you smoke, STOP. Smoking or tobacco use significantly increases your risk of heart disease because nicotine causes the arteries to narrow or constrict. It also causes fats to stick to the artery. Your chances of having a heart attack are greatly increased if you continue to smoke. For more information, call the education line for smoking cessation 4-856-KMOJROQ EAT A LOW FAT/CHOLESTEROL/SODIUM DIET: This diet may help reduce your chances of having a heart attack. LIFTING: Avoid lifting anything more than 10 pounds for 5-7 days Prior to straining, laughing, sneezing and/or coughing, apply manual pressure directly over insertion site. ACTIVITY: You may walk or climb stairs as tolerated You can resume sexual activity as tolerated In general, you are encouraged to engage in a minimum of 30 minutes or more of moderate intensity physical activity, such as brisk walking, daily or at least 3 -4 times weekly BATHING Do not submerge the site into water (bath tub, hot tub, swimming pool) for 1 week. This can be a source for infection into the blood stream. You may shower after 24 hours SITE CARE: After 24 hours, you may remove the dressing and leave the site open to air. Keep the site clean and dry. Clean gently and pat dry. You can expect bruising and tenderness that gradually resolve within a week or two. Return to work as instructed per your physician Resume driving as instructed per physician Keep all scheduled follow up appointments Resume medications as instructed IMPORTANT: If prescribed a Platelet Aggregation Inhibitor such as, Plavix, Brilinta or Effient: Duration of therapy is minimum one year These medications are often used in combination with Aspirin in prevention of future heart attacks Never discontinue unless consult with your Invoice Coder STROKE (CVA) Risk factors for a stroke are: Age, cigarette smoking, diabetes, excessive alcohol consumption, family history, high blood pressure, overweight, physical inactivity, prior stroke, heart attack, diagnosis of carotid artery stenosis or other artery disease. Warning signs: Sudden numbness or weakness of the face, arm or leg; especially on one side of the body, sudden confusion, trouble speaking or understanding, sudden trouble seeing in one or both eyes, sudden trouble walking, dizziness, loss of balance or coordination, sudden severe headache with no cause. Call 911 or go to the Emergency Room. CONGESTIVE HEART FAILURE: If you have been diagnosed with Congestive Heart Failure (CHF) and your symptoms return, make an appointment with your physician Weigh yourself daily. Notify your physician if you have a weight gain of two or more pounds in one day or five or more pounds in one week. If you experience any difficulty breathing, please call 911 BLEEDING: Although the risk of bleeding is minimal, it can happen. If you have any bleeding from the site, apply firm pressure above the puncture site for 10-15 minutes. If the bleeding does not stop, continue manual pressure and call 911 Contact your physician if: You develop a fever greater than 101 degrees Fahrenheit Your site becomes reddened or has any drainage You have an increase in pain or burning at the site or if a large knot forms at the site. If you experience chest pain, shortness of breath, dizziness, or extreme tiredness, stop the activity and rest. Please notify your physicians office if you experience any of these symptoms and they are not relieved by rest please call 911! Referrals: Leelee Lin CNP [Partnered Physician] - (office will call patient at home with follow up appointment) Randy Jose MD [Primary Care Provider] - 03/14/18 9:30 am
[2018-03-09] MEDS: *HR* Rivaroxaban 10 MG TABLET PO SCH (16:55)
--- NOTE | 2018-03-09 18:56 | Internal Medicine Consult Note ---
Date of Encounter: 03/09/18 Time of Encounter: 18:51 - Assessment and plan (1) Leukocytosis Current Visit: Yes Status: Acute Assessment and plan: Patient was noted to have leukocytosis in the past 2 days, UA is negative for UTI, chest x-ray revealed possible right-sided pneumonia. Blood culture obtained. We will empirically treated with IV antibiotics. Will obtain sputum culture if possible. Qualifiers: Leukocytosis type: unspecified Qualified Code(s): D72.829 - Elevated white blood cell count, unspecified (2) Pneumonia Current Visit: Yes Status: Acute Assessment and plan: Patient recently was hospitalized for pneumonia, repeat chest x-ray on 2017 showed possible right-sided pneumonia. Blood culture obtained, will obtain sputum culture if possible. In pericolic treated with IV cefepime and vancomycin. Qualifiers: Pneumonia type: due to unspecified organism Laterality: bilateral Lung location: unspecified part of lung Qualified Code(s): J18.9 - Pneumonia, unspecified organism (3) Non-STEMI (non-ST elevated myocardial infarction) Current Visit: Yes Status: Acute Assessment and plan: Status post a PCI on 03/06/2018. Currently on dual antiplatelet therapy. Repeat echocardiogram after PCI showed ejection fractions 25-30%, small pericardial effusion. Cardiology is following. (4) Atrial fibrillation Current Visit: No Status: Chronic Assessment and plan: Rate controlled, patient on Coumadin. Qualifiers: Atrial fibrillation type: persistent Qualified Code(s): I48.1 - Persistent atrial fibrillation (5) Hypertension Current Visit: No Status: Chronic Assessment and plan: BP slightly low, continue monitoring. Qualifiers: Hypertension type: essential hypertension Qualified Code(s): I10 - Essential (primary) hypertension (6) Hyperlipidemia Current Visit: No Status: Chronic Assessment and plan: Continue home medications. Qualifiers: Hyperlipidemia type: unspecified Qualified Code(s): E78.5 - Hyperlipidemia , unspecified (7) Acute systolic (congestive) heart failure Current Visit: No Status: Chronic Assessment and plan: TTE on 03/07/2018 showed ejection fraction supportive 25-30%, small pericardial effusion. Patient is euvolemic on physical exam. Continue current treatment. Cardiology following. (8) Coronary artery disease Current Visit: Yes Status: Acute Assessment and plan: Continue current treatment, cardiology following. Qualifiers: Coronary Disease-Associated Artery/Lesion type: [place] artery [place] vs. transplanted heart: [place] heart Associated angina: without angina Qualified Code(s): I25.10 - Atherosclerotic heart disease of [place] coronary artery without angina pectoris (9) DVT prophylaxis Current Visit: Yes Status: Acute Assessment and plan: Continue Coumadin. - Time Spent With Patient Total time spent is greater than 50% in coordination of care (as documented) at patient's floor/unit and/or counseling patient: Greater than 35 minutes Internal Medicine - CN: HPI - Data of Consult Patient: known to practice within the last 3 years Consult date: 03/09/18 Requesting Physician: Wiliam Scherer DO - Consult Narrative Reason for consult: leukocytosis History of present illness: Mr. Marshall is a 83 year old male history of CAD, CHF, chronic atrial fibrillation, and recent pneumonia. he underwent elective PCI on 03/06/2018. In the past 2 days, labs showed leukocytosis. A chest x-ray done today showed possible right lung pneumonia. Hospitalist group was consulted. Patient reported that he has been hospitalized recently after his spouse , he was diagnosis with pneumonia and was on antibiotics. He denies recent URI or sick contact. He denies fever, chills, or night sweats. He reported occasional dry cough but denies sputum production. He had mild dyspnea on exertion when getting out of the bed but denies chest pain, syncope, or palpitation. He endorsed a remote smoking history but denies history of COPD no other lung disease. Past Med Surg Social Fam HX - Past Medical History Medical history: coronary artery disease, diabetes, hyperlipidemia, hypertension , peripheral artery disease Additional medical history: PNEUMONIA Psychiatric history: no psych history - Past Surgical History Surgical History: no surgical history - Social History Smoking Status: Former smoker Smokeless Tobacco Status: No Alcohol use: none Drug use: none - Family History Mother Living Status: Hx Family Cardiac Disorders: Yes (Htn) Hx Family Respiratory Disorders: No Hx Family Cancer: No Hx Family GI Disorders: No Hx Family Endocrine Disorder: No Hx Family Neuromuscular Disorders: No Hx Family Neurologic Disorders: No Hx Family HEENT Disorders: No Hx Family Autoimmune Disorders: No Father Living Status: Hx Family Respiratory Disorders: Yes Hx Family Cancer: Yes (Bladder ca) Hx Family GI Disorders: No Hx Family Endocrine Disorder: No Hx Family Neuromuscular Disorders: No Hx Family Neurologic Disorders: No Hx Family HEENT Disorders: No Hx Family Autoimmune Disorders: No Review of systems: REVIEW OF SYSTEMS: CONSTITUTIONAL: No weight loss, fever, chills, weakness or fatigue. HEENT: Eyes: No visual loss, blurred vision, double vision or yellow sclerae. Ears, Nose, Throat: No hearing loss, sneezing, congestion, runny nose or sore throat. SKIN: No rash or itching. CARDIOVASCULAR: see HPI. RESPIRATORY: No shortness of breath, cough or sputum. GASTROINTESTINAL: No anorexia, nausea, vomiting or diarrhea. No abdominal pain or blood. GENITOURINARY: No dysuria, urgency, or frequency. NEUROLOGICAL: No headache, dizziness, syncope, paralysis, ataxia, numbness or tingling in the extremities. No change in bowel or bladder control. MUSCULOSKELETAL: No muscle, back pain, joint pain or stiffness. HEMATOLOGIC: No anemia, bleeding or bruising. LYMPHATICS: No enlarged nodes. No history of splenectomy. PSYCHIATRIC: No history of depression or anxiety. ENDOCRINOLOGIC: No reports of sweating, cold or heat intolerance. No polyuria or polydipsia. Internal Medicine - CN: Meds Losartan [Cozaar] 25 mg PO DAILY 02/04/18 [History] Metoprolol Succinate [Toprol Xl] 50 mg PO DAILY 02/04/18 [History] Atorvastatin [Lipitor] 40 mg PO HS 30 Days #30 tablet 02/07/18 [Rx] Clopidogrel [Plavix] 75 mg PO DAILY 30 Days #30 tablet 02/07/18 [Rx] Metformin HCl [Glucophage] 1,000 mg PO BID 02/24/18 [History] Rivaroxaban [Xarelto] 20 mg PO DAILY 02/24/18 [History] Furosemide [Lasix] 40 mg PO DAILY PRN 30 Days #30 tablet 02/26/18 [Rx] Aspirin [Lo-Dose Aspirin EC] 81 mg PO DAILY 03/08/18 [History] 3 Allergy/AdvReac Type Severity Reaction Status Date / Time Penicillins [PCN] Allergy Rash Verified 03/08/18 18:02 Hospitalist - CN: Exam - Constitutional Vitals: Temp Pulse Resp BP Pulse Ox 97.4 F L 106 18 99/51 96 03/09/18 16:30 03/09/18 16:30 03/09/18 16:30 03/09/18 16:30 03/09/18 16:30 General appearance IM: Present: cooperative, A&O X 3, answers questions appropriately Exam: PHYSICAL EXAMINATION: GENERAL APPEARANCE: The patient is alert, oriented and in no acute distress. HEENT: Head is normocephalic. The sinuses are nontender. Pupils are equal and reactive. The nares are patent. Oropharynx clear without lesions. NECK: Supple without lymphadenopathy. HEART: Regular rate and rhythm. LUNGS: No wheezing but scattered rhonchi noted. No crackle. ABDOMEN: Soft, nontender, nondistended with good bowel sounds heard. Inguinal area is normal. EXTREMITIES: Without cyanosis, clubbing or edema. NEUROLOGICAL: Gross nonfocal. SKIN: Warm and dry without any rash. Internal Medicine - CN: Reslt - Labs CBC & Chem 7: 03/09/18 04:35 03/09/18 04:35 Labs: Short CBC 03/09/18 Range/Units 04:35 WBC 11.8 H (4.3-11.1) K/mcL Hgb 9.9 L (12.9-16.9) g/dL Hct 31.2 L (37.5-50.1) % Plt Count 241 (140-400) K/mcL Neutrophils # 9.0 H (1.6-8.9) K/mcL BMP 03/09/18 04:35 Sodium 130 L Potassium 4.0 Chloride 101 Carbon Dioxide 25 BUN 34 H Creatinine 1.19 Glucose 204 H Calcium 8.6 - Impressions Impressions Chest X-Ray 03/09/18 09:30 IMPRESSION: Mild improvement in pulmonary infiltrates especially on the left. Persisting dense infiltrate and loss of volume in the right lung. D/ / 03/09/2018 17:43:44 Emily Piña MD / silvia Interpreting Provider: Emily Piña MD Consult Discharge Plan - Plan Additional Instructions: RISK FACTORS: STOP SMOKING: If you smoke, STOP. Smoking or tobacco use significantly increases your risk of heart disease because nicotine causes the arteries to narrow or constrict. It also causes fats to stick to the artery. Your chances of having a heart attack are greatly increased if you continue to smoke. For more information, call the education line for smoking cessation 9-575-WFWYZPE EAT A LOW FAT/CHOLESTEROL/SODIUM DIET: This diet may help reduce your chances of having a heart attack. LIFTING: Avoid lifting anything more than 10 pounds for 5-7 days Prior to straining, laughing, sneezing and/or coughing, apply manual pressure directly over insertion site. ACTIVITY: You may walk or climb stairs as tolerated You can resume sexual activity as tolerated In general, you are encouraged to engage in a minimum of 30 minutes or more of moderate intensity physical activity, such as brisk walking, daily or at least 3 -4 times weekly BATHING Do not submerge the site into water (bath tub, hot tub, swimming pool) for 1 week. This can be a source for infection into the blood stream. You may shower after 24 hours SITE CARE: After 24 hours, you may remove the dressing and leave the site open to air. Keep the site clean and dry. Clean gently and pat dry. You can expect bruising and tenderness that gradually resolve within a week or two. Return to work as instructed per your physician Resume driving as instructed per physician Keep all scheduled follow up appointments Resume medications as instructed IMPORTANT: If prescribed a Platelet Aggregation Inhibitor such as, Plavix, Brilinta or Effient: Duration of therapy is minimum one year These medications are often used in combination with Aspirin in prevention of future heart attacks Never discontinue unless consult with your Outpatient Surgery Rn STROKE (CVA) Risk factors for a stroke are: Age, cigarette smoking, diabetes, excessive alcohol consumption, family history, high blood pressure, overweight, physical inactivity, prior stroke, heart attack, diagnosis of carotid artery stenosis or other artery disease. Warning signs: Sudden numbness or weakness of the face, arm or leg; especially on one side of the body, sudden confusion, trouble speaking or understanding, sudden trouble seeing in one or both eyes, sudden trouble walking, dizziness, loss of balance or coordination, sudden severe headache with no cause. Call 911 or go to the Emergency Room. CONGESTIVE HEART FAILURE: If you have been diagnosed with Congestive Heart Failure (CHF) and your symptoms return, make an appointment with your physician Weigh yourself daily. Notify your physician if you have a weight gain of two or more pounds in one day or five or more pounds in one week. If you experience any difficulty breathing, please call 911 BLEEDING: Although the risk of bleeding is minimal, it can happen. If you have any bleeding from the site, apply firm pressure above the puncture site for 10-15 minutes. If the bleeding does not stop, continue manual pressure and call 911 Contact your physician if: You develop a fever greater than 101 degrees Fahrenheit Your site becomes reddened or has any drainage You have an increase in pain or burning at the site or if a large knot forms at the site. If you experience chest pain, shortness of breath, dizziness, or extreme tiredness, stop the activity and rest. Please notify your physicians office if you experience any of these symptoms and they are not relieved by rest please call 911! Referrals: Leelee Lin CNP [Partnered Physician] - (office will call patient at home with follow up appointment) Randy Jose MD [Primary Care Provider] - 03/14/18 9:30 am
[2018-03-10 04:21] LABS: Basophils # 0.1 K/mcL (0.0-0.2); Basophils % 0.5 %; Eosinophils # 0.6 K/mcL (0.0-0.6); Eosinophils % 5.6 %; Hematocrit 30.8 % (37.5-50.1); Hemoglobin 9.8 g/dL (12.9-16.9); Immature Granulocytes % 0.7 % (0-4); Lymphocytes # 1.1 K/mcL (0.6-4.6); Lymphocytes % 10.6 %; Mean Corpuscular HGB Conc 31.8 g/dL (31.6-35.5); Mean Corpuscular Volume 97.5 fL (83.0-100.0); Mean Platelet Volume 10.6 fL (9.4-12.4); Monocytes % 9.6 %; Neutrophils # 7.3 K/mcL (1.6-8.9); Platelet Count 271 K/mcL (140-400); Red Blood Count 3.16 M/mcL (4.19-5.50); Red Cell Distribution Width 14.8 % (11.5-14.5)
[2018-03-10 04:41] LABS: BUN/Creatinine Ratio 25 (6-26); Blood Urea Nitrogen 31 mg/dL (8-23); Calcium 8.5 mg/dL (8.6-10.3); Carbon Dioxide 26 mEq/L (23-29); Chloride 101 mEq/L (98-107); Glucose 145 mg/dL (70-105); Osmolality,Calculated 285 (280-300); Sodium 133 mEq/L (136-145); eGFR For Non-African Americans 56 (> 60)
[2018-03-10] MEDS: Cefepime HCl 2,000 MG in 0.9 % Sodium Chloride Mini Bag 100 ML IVPB SCH ×2 (05:32→16:51)
[2018-03-10] MEDS: Aspirin 81 MG TAB.CHEW PO SCH (08:41)
[2018-03-10] MEDS: Metoprolol XL (24 HR) Succ 25 MG TAB.ER.24H PO SCH (08:41)
[2018-03-10] MEDS: Insulin LISPRO 300 UNITS/3 ML VIAL SQ SCH ×4 (08:44→21:12)
--- NOTE | 2018-03-10 09:52 | Internal Med Progress Note ---
Hospitalist Progress Note - Encounter Date of Encounter: 03/10/18 Time of Encounter: 09:48 - Subjective Interval History: 83 M admitted by cardiology for high risk PCI , [facility] Hospital medicine was consulted for management of leukocytosis and PNA with stable R infiltrates and new L lung infiltrates on CXR from 03/09/2018, NO prior CXR on admission, patient was recently treated for PNA patient was admitted 03/06 hence has spent >48 hrs in-patient prior to onst of PNA, he was started on antibiotics after culture on 03/09 he has additional PMH of CHFrEF (EF 25-30%), HTN, Afib, HLD he also has chronic resp failure and is on home O2 he complained of SOB this a.m, according to RN, lasix is ordered as prn swelling I believe his CXR findings are more in keeping with pulm vascular congestion rather than PNA, patient has no cough, no fever or phlegm production Cultures are pending I will recommend lasix as [facility] doses and repitition of CXR a.m , if infiltrates resolve or improve, will recommend trt for pulm edema, if infiltrates persists, will recommend continuation of PNA trt - Exam Vitals: Temp Pulse Resp BP Pulse Ox 97.9 F 89 18 97/51 95 03/10/18 07:42 03/10/18 07:42 03/10/18 07:42 03/10/18 07:42 03/10/18 07:42 Exam: PHYSICAL EXAMINATION: GENERAL APPEARANCE: The patient is alert, oriented and in no acute distress. HEENT: Head is normocephalic. The sinuses are nontender. Pupils are equal and reactive. The nares are patent. Oropharynx clear without lesions. NECK: Supple without lymphadenopathy. HEART: Regular rate and rhythm. LUNGS: No wheezing but scattered rhonchi noted. No crackle. ABDOMEN: Soft, nontender, nondistended with good bowel sounds heard. Inguinal area is normal. EXTREMITIES: Without cyanosis, clubbing or edema. NEUROLOGICAL: Gross non-focal. SKIN: Warm and dry without any rash. - Assessment and Plan (1) Non-STEMI (non-ST elevated myocardial infarction) Current Visit: Yes Status: Acute Assessment and Plan: Status post a PCI on 03/06/2018. Currently on dual antiplatelet therapy. Repeat echocardiogram after PCI showed ejection fractions 25-30%, small pericardial effusion. Cardiology is following. Continue management per cardio (2) Atrial fibrillation Current Visit: Yes Status: Chronic Assessment and Plan: Rate controlled, patient on xarelto, .Management per cardio (3) Hypertension Current Visit: Yes Status: Chronic Assessment and Plan: BP slightly low, continue monitoring. (4) Hyperlipidemia Current Visit: Yes Status: Chronic Assessment and Plan: Continue home medications. (5) DVT prophylaxis Current Visit: Yes Status: Acute Assessment and Plan: Continue xarelto (6) Pneumonia Current Visit: Yes Status: Suspected Assessment and Plan: Suspected Patient recently was hospitalized for pneumonia, repeat chest x-ray on 2017 showed possible right-sided pneumonia. Blood culture obtained, will obtain sputum culture if possible. Patient has no cough, sputum production, fever Leukocytosis has resolved Continue Vanco and Cefepime Day 2 Will de-escalate if repeat CXR shows improvement, patient is on O2 at home, continue same (7) Acute systolic (congestive) heart failure Current Visit: Yes Status: Chronic Assessment and Plan: TTE on 03/07/2018 showed ejection fraction supportive 25-30%, small pericardial effusion. Patient is euvolemic on physical exam. Continue current treatment. Cardiology following. (8) Coronary artery disease Current Visit: Yes Status: Chronic Assessment and Plan: Continue current treatment, cardiology following. (9) Leukocytosis Current Visit: Yes Status: Resolved Assessment and Plan: resolved - Time Spent with Patient Total time spent is greater than 50% in coordination of care (as documented) at patient's floor/unit and/or counseling patient: Plan of Care Discussed with: patient Internal Medicine: Result - Labs CBC & Chem 7: 03/10/18 03:57 03/10/18 03:57 Labs: Short CBC 03/10/18 Range/Units 03:57 WBC 10.0 (4.3-11.1) K/mcL Hgb 9.8 L (12.9-16.9) g/dL Hct 30.8 L (37.5-50.1) % Plt Count 271 (140-400) K/mcL Neutrophils # 7.3 (1.6-8.9) K/mcL BMP 03/10/18 03:57 Sodium 133 L Potassium 4.0 Chloride 101 Carbon Dioxide 26 BUN 31 H Creatinine 1.23 Glucose 145 H Calcium 8.5 L - Impressions Impressions Chest X-Ray 03/09/18 09:30 IMPRESSION: Mild improvement in pulmonary infiltrates especially on the left. Persisting dense infiltrate and loss of volume in the right lung. D/ / 03/09/2018 17:43:44 Emily Piña MD / silvia Interpreting Provider: Emily Piña MD - VTE Reasons for not Prescribing Prophylaxis: Not indicated-Anticoagulated or INR therapeutic Consult Discharge Plan - Plan Additional Instructions: RISK FACTORS: STOP SMOKING: If you smoke, STOP. Smoking or tobacco use significantly increases your risk of heart disease because nicotine causes the arteries to narrow or constrict. It also causes fats to stick to the artery. Your chances of having a heart attack are greatly increased if you continue to smoke. For more information, call the education line for smoking cessation 8-475-TOKHQVB EAT A LOW FAT/CHOLESTEROL/SODIUM DIET: This diet may help reduce your chances of having a heart attack. LIFTING: Avoid lifting anything more than 10 pounds for 5-7 days Prior to straining, laughing, sneezing and/or coughing, apply manual pressure directly over insertion site. ACTIVITY: You may walk or climb stairs as tolerated You can resume sexual activity as tolerated In general, you are encouraged to engage in a minimum of 30 minutes or more of moderate intensity physical activity, such as brisk walking, daily or at least 3 -4 times weekly BATHING Do not submerge the site into water (bath tub, hot tub, swimming pool) for 1 week. This can be a source for infection into the blood stream. You may shower after 24 hours SITE CARE: After 24 hours, you may remove the dressing and leave the site open to air. Keep the site clean and dry. Clean gently and pat dry. You can expect bruising and tenderness that gradually resolve within a week or two. Return to work as instructed per your physician Resume driving as instructed per physician Keep all scheduled follow up appointments Resume medications as instructed IMPORTANT: If prescribed a Platelet Aggregation Inhibitor such as, Plavix, Brilinta or Effient: Duration of therapy is minimum one year These medications are often used in combination with Aspirin in prevention of future heart attacks Never discontinue unless consult with your Bus Washer STROKE (CVA) Risk factors for a stroke are: Age, cigarette smoking, diabetes, excessive alcohol consumption, family history, high blood pressure, overweight, physical inactivity, prior stroke, heart attack, diagnosis of carotid artery stenosis or other artery disease. Warning signs: Sudden numbness or weakness of the face, arm or leg; especially on one side of the body, sudden confusion, trouble speaking or understanding, sudden trouble seeing in one or both eyes, sudden trouble walking, dizziness, loss of balance or coordination, sudden severe headache with no cause. Call 911 or go to the Emergency Room. CONGESTIVE HEART FAILURE: If you have been diagnosed with Congestive Heart Failure (CHF) and your symptoms return, make an appointment with your physician Weigh yourself daily. Notify your physician if you have a weight gain of two or more pounds in one day or five or more pounds in one week. If you experience any difficulty breathing, please call 911 BLEEDING: Although the risk of bleeding is minimal, it can happen. If you have any bleeding from the site, apply firm pressure above the puncture site for 10-15 minutes. If the bleeding does not stop, continue manual pressure and call 911 Contact your physician if: You develop a fever greater than 101 degrees Fahrenheit Your site becomes reddened or has any drainage You have an increase in pain or burning at the site or if a large knot forms at the site. If you experience chest pain, shortness of breath, dizziness, or extreme tiredness, stop the activity and rest. Please notify your physicians office if you experience any of these symptoms and they are not relieved by rest please call 911! Referrals: Leelee Lin CNP [Partnered Physician] - (office will call patient at home with follow up appointment) Randy Jose MD [Primary Care Provider] - 03/14/18 9:30 am (2) Atrial fibrillation Qualifiers: Atrial fibrillation type: persistent Qualified Code(s): I48.1 - Persistent atrial fibrillation (3) Hypertension Qualifiers: Hypertension type: essential hypertension Qualified Code(s): I10 - Essential (primary) hypertension (4) Hyperlipidemia Qualifiers: Hyperlipidemia type: unspecified Qualified Code(s): E78.5 - Hyperlipidemia, unspecified (6) Pneumonia Qualifiers: Pneumonia type: due to Klebsiella pneumoniae Laterality: bilateral Lung location: unspecified part of lung Qualified Code(s): J15.0 - Pneumonia due to Klebsiella pneumoniae (8) Coronary artery disease Qualifiers: Coronary Disease-Associated Artery/Lesion type: [place] artery [place] vs. transplanted heart: [place] heart Associated angina: without angina Qualified Code(s): I25.10 - Atherosclerotic heart disease of [place] coronary artery without angina pectoris (9) Leukocytosis Qualifiers: Leukocytosis type: unspecified Qualified Code(s): D72.829 - Elevated white blood cell count, unspecified
--- NOTE | 2018-03-10 12:40 | Cardiology Progress Note ---
Date of Encounter: 03/10/18 Time of Encounter: 14:00 Assessment and Plan (1) Coronary artery disease Current Visit: Yes Status: Chronic Patient presented for as outpatient for elective high-risk PCI with Dr. Scherer on 03/06/18. He underwent PCI to prox-mid LAD with use of impella during case. To clarify--patient is NOT a NSTEMI this admission. TTE 2017: EF 35% Vitals and telemetry stable. Bilateral groin cath sites are stable. No hematoma or redness. Limited TTE 03/07/18: LVEF 25-30%, no LV thrombus, small inferior/inferolateral pericardial effusion; reviewed with Dr. Apodaca, likely r/t high risk PCI. Will need to repeat limited TTE in a few weeks to re-evaluate. He was restarted on Xarelto yesterday for history of A. fib. Of note, patient is on triple therapy with aspirin, Plavix, and Xarelto. He appears to currently be tolerating. Importance of compliance with medications and continuing uninterrupted DAPT with aspirin and Plavix for minimum of 1 year discussed. Continue statin and beta gabriella. PT/OT following. VTE prophylaxis: Xarelto 15 mg daily. Qualifiers: Coronary Disease-Associated Artery/Lesion type: [place] artery [place] vs. transplanted heart: [place] heart Associated angina: without angina Qualified Code(s): I25.10 - Atherosclerotic heart disease of [place] coronary artery without angina pectoris (2) CHF (congestive heart failure) Current Visit: Yes Status: Chronic Recently diagnosed with systolic CHF--chronicity unclear. TTE 35% February, no prior TTE for comparison. Shortness of breath improving. s/p dose of Lasix yesterday. Chest x-ray is pending. Continue strict I&O and daily weights. Continue Toprol and ARB. Qualifiers: Heart failure type: systolic Heart failure chronicity: chronic Qualified Code(s): I50.22 - Chronic systolic (congestive) heart failure (3) Nausea Current Visit: Yes Status: Resolved Reports nausea, has been present for nearly a week--improved today. Patient reports may be secondary to Levaquin (recent dx of PNA). Also notes has not been eating well nor has had a BM. PRN zofran, colace. Continue to monitor. (4) Atrial fibrillation Current Visit: Yes Status: Chronic Rate controlled on BB. Plan to resume Xarelto this evening. Recheck CBC in AM to ensure H/H is stable in am prior to d/c. Qualifiers: Atrial fibrillation type: persistent Qualified Code(s): I48.1 - Persistent atrial fibrillation (5) Pneumonia Current Visit: Yes Status: Suspected Persistent PNA; had been on Levaquin in the outpatient setting by [facility] Physician. Appreciate Hospitalist recommendations. Qualifiers: Pneumonia type: due to Klebsiella pneumoniae Laterality: bilateral Lung location: unspecified part of lung Qualified Code(s): J15.0 - Pneumonia due to Klebsiella pneumoniae (6) Physical deconditioning Current Visit: Yes Status: Acute Physical deconditioning secondary to recent pneumonia and hospital stay. PT/OT consulted and recommend transfer to swing bed upon discharge. Will consult director social for discharge planning. Discussion w patient/family: The assessment and plan as outlined above was discussed with the patient and/or family members who expressed understanding and agreement. All questions were answered. Thank you for involving us in the care of your patient. Please call with any questions. The patient will be discussed and reviewed with Dr. Scherer; changes to be made accordingly. Subjective Principal diagnosis: s/p LAD PCI Interval history: Seen and examined. Patient reports no complaints today, reports feels much better. PT/OT following, remains weak, however ambulated in the hallway. Bilateral groin cath sites appear normal, no hematoma or bleeding. Pulses present per doppler. Objective Vital Signs, Last 4 Hours Temp Pulse Resp BP Pulse Ox 03/10/18 11:06 97.3 F L 84 20 95/70 100 General: Conversant, Other (pale, chronically ill appearing) HEENT: Atraumatic, Normocephaly Cardiac: Other (irregularly irregular) Lungs: Other (decreased, wheezing throughout) Neuro: Alert and responsive Abdomen: Soft Skin: No rashes noted on visualized skin Musculoskeletal: No Chest Wall Tenderness Extremities: No Edema, Normal Pulses Results 03/10/18 03:57 03/10/18 03:57 Lab Results 03/10/18 03/10/18 03:57 03:57 WBC 10.0 Hgb 9.8 L Hct 30.8 L Plt Count 271 Sodium 133 L Potassium 4.0 Chloride 101 Carbon Dioxide 26 BUN 31 H Creatinine 1.23 Glucose 145 H Calcium 8.5 L Active Medications Aspirin (Aspirin) 81 mg PO DAILY [facility] Stop: 04/06/19 09:01 Last Admin: 03/10/18 08:41 Dose: 81 mg Clopidogrel Bisulfate (Plavix) 75 mg PO DAILY [facility] Stop: 09/06/18 09:01 Last Admin: 03/10/18 08:41 Dose: 75 mg Dextrose/Water (Dextrose 50% (Syg)) 25 ml IVP AD PRN PRN Reason: Hypoglycemia Stop: 09/07/18 20:37 Docusate Sodium (Colace) 100 mg PO DAILY [facility] PRN Reason: Protocol Stop: 09/06/18 11:31 Last Admin: 03/10/18 08:41 Dose: 100 mg Furosemide (Lasix) 40 mg PO DAILY PRN PRN Reason: swelling Stop: 09/05/18 20:35 Last Admin: 03/09/18 13:44 Dose: 40 mg Glucagon (Glucagen) 1 mg IM ONCE PRN PRN Reason: Hypoglycemia Stop: 09/07/18 20:37 Glucose (Gluctose) 15 gm PO ONCE PRN PRN Reason: Hypoglycemia Stop: 09/07/18 20:37 Glucose (Gluctose) 30 gm PO ONCE PRN PRN Reason: Hypoglycemia Stop: 09/07/18 20:37 Dextrose (Dextrose 5%) 1,000 mls @ 100 mls/hr IVC .Q10H PRN PRN Reason: HYPOGLYCEMIA Stop: 09/07/18 20:37 Cefepime HCl 2,000 mg/ Sodium (Chloride) 100 mls @ 200 mls/hr IVPB Q12HR [facility] Stop: 09/09/18 06:01 Last Admin: 03/10/18 05:32 Dose: 200 mls/hr Vancomycin HCl 1,000 mg/ (Sodium Chloride) 250 mls @ 167 mls/hr IVPB Q24H [facility] PRN Reason: Protocol Stop: 09/08/18 19:01 Last Infusion: 03/09/18 21:15 Dose: Infused Insulin Human Lispro (Humalog) 0 units SQ HS [facility] PRN Reason: Protocol Stop: 09/07/18 21:01 Last Admin: 03/09/18 19:59 Dose: 3 units Insulin Human Lispro (Humalog) 0 units SQ TIDAC [facility] PRN Reason: Protocol Stop: 09/08/18 07:31 Last Admin: 03/10/18 11:18 Dose: 12 units Losartan Potassium (Cozaar) 25 mg PO DAILY [facility] PRN Reason: Protocol Stop: 09/06/18 09:01 Last Admin: 03/10/18 08:42 Dose: Not Given Metoprolol Succinate (Toprol Xl) 25 mg PO DAILY [facility] Stop: 09/07/18 09:01 Last Admin: 03/10/18 08:41 Dose: 25 mg Ondansetron HCl (Zofran) 4 mg IVP Q8HR PRN PRN Reason: Nausea And Vomiting Stop: 09/05/18 17:59 Last Admin: 03/07/18 15:09 Dose: 4 mg Rivaroxaban (Xarelto) 15 mg PO 1700 [facility] Stop: 09/09/18 17:01 Rosuvastatin Calcium (Crestor) 40 mg PO HS [facility] Stop: 09/05/18 21:01 Last Admin: 03/09/18 19:45 Dose: 40 mg - Imaging and Cardiology Echo: report reviewed Cardiac cath: report reviewed Other Results: 12 hour tele: avg HR=87 afib - EKG Interpretation EKG results cardiology: personally reviewed - VTE Reasons for not Prescribing Prophylaxis: Not indicated-Anticoagulated or INR therapeutic Consult Discharge Plan - Plan Additional Instructions: RISK FACTORS: STOP SMOKING: If you smoke, STOP. Smoking or tobacco use significantly increases your risk of heart disease because nicotine causes the arteries to narrow or constrict. It also causes fats to stick to the artery. Your chances of having a heart attack are greatly increased if you continue to smoke. For more information, call the education line for smoking cessation 8-477-VOWJCCQ EAT A LOW FAT/CHOLESTEROL/SODIUM DIET: This diet may help reduce your chances of having a heart attack. LIFTING: Avoid lifting anything more than 10 pounds for 5-7 days Prior to straining, laughing, sneezing and/or coughing, apply manual pressure directly over insertion site. ACTIVITY: You may walk or climb stairs as tolerated You can resume sexual activity as tolerated In general, you are encouraged to engage in a minimum of 30 minutes or more of moderate intensity physical activity, such as brisk walking, daily or at least 3 -4 times weekly BATHING Do not submerge the site into water (bath tub, hot tub, swimming pool) for 1 week. This can be a source for infection into the blood stream. You may shower after 24 hours SITE CARE: After 24 hours, you may remove the dressing and leave the site open to air. Keep the site clean and dry. Clean gently and pat dry. You can expect bruising and tenderness that gradually resolve within a week or two. Return to work as instructed per your physician Resume driving as instructed per physician Keep all scheduled follow up appointments Resume medications as instructed IMPORTANT: If prescribed a Platelet Aggregation Inhibitor such as, Plavix, Brilinta or Effient: Duration of therapy is minimum one year These medications are often used in combination with Aspirin in prevention of future heart attacks Never discontinue unless consult with your Asbestos Siding Mechanic STROKE (CVA) Risk factors for a stroke are: Age, cigarette smoking, diabetes, excessive alcohol consumption, family history, high blood pressure, overweight, physical inactivity, prior stroke, heart attack, diagnosis of carotid artery stenosis or other artery disease. Warning signs: Sudden numbness or weakness of the face, arm or leg; especially on one side of the body, sudden confusion, trouble speaking or understanding, sudden trouble seeing in one or both eyes, sudden trouble walking, dizziness, loss of balance or coordination, sudden severe headache with no cause. Call 911 or go to the Emergency Room. CONGESTIVE HEART FAILURE: If you have been diagnosed with Congestive Heart Failure (CHF) and your symptoms return, make an appointment with your physician Weigh yourself daily. Notify your physician if you have a weight gain of two or more pounds in one day or five or more pounds in one week. If you experience any difficulty breathing, please call 911 BLEEDING: Although the risk of bleeding is minimal, it can happen. If you have any bleeding from the site, apply firm pressure above the puncture site for 10-15 minutes. If the bleeding does not stop, continue manual pressure and call 911 Contact your physician if: You develop a fever greater than 101 degrees Fahrenheit Your site becomes reddened or has any drainage You have an increase in pain or burning at the site or if a large knot forms at the site. If you experience chest pain, shortness of breath, dizziness, or extreme tiredness, stop the activity and rest. Please notify your physicians office if you experience any of these symptoms and they are not relieved by rest please call 911! Referrals: Leelee Lin, FRANCIS [Partnered Physician] - (office will call patient at home with follow up appointment) Randy Jose MD [Primary Care Provider] - 03/14/18 9:30 am
[2018-03-10] MEDS ORDERED: Aminoglycoside Consult 1 EACH MC ONE (15:50)
[2018-03-10] MEDS: *HR* Rivaroxaban 15 MG TABLET PO SCH (16:51)
[2018-03-11] MEDS: Cefepime HCl 2,000 MG in 0.9 % Sodium Chloride Mini Bag 100 ML IVPB SCH (06:44)
[2018-03-11] MEDS: Metoprolol XL (24 HR) Succ 25 MG TAB.ER.24H PO SCH (08:09)
[2018-03-11] MEDS: Aspirin 81 MG TAB.CHEW PO SCH (08:09)
[2018-03-11] MEDS: Insulin LISPRO 300 UNITS/3 ML VIAL SQ SCH ×4 (08:12→21:25)
--- NOTE | 2018-03-11 10:24 | Electrocardiograph Report ---
[address] [place], [place] [address] Test Date: 2018-03-08 Pat Name: Laith Marshall Department: 110 Room: 2N06 Gender: M Scrap Kettle Tender: : 1935 Requested By: Leelee Lin Order Number: [id number] Reading MD: Savage Pack Measurements Intervals [place] Rate: 89 P: [place]: 0 QRS: 50 QRSD: 104 T: 93 QT: 392 QTc: 439 Interpretive Statements ATRIAL FIBRILLATION WITH ABERRANT CONDUCTION OR VENTRICULAR PREMATURE COMPLEXES LOW QRS VOLTAGE IN EXTREMITY LEADS ANTEROSEPTAL MYOCARDIAL INFARCTION, OF INDETERMINATE AGE Electronically Signed On 03-11-2018 10:22:16 EDT by Savage Pack
--- NOTE | 2018-03-11 10:28 | Internal Med Progress Note ---
Hospitalist Progress Note - Encounter Date of Encounter: 03/11/18 Time of Encounter: 10:28 - Subjective Interval History: 83 M admitted by cardiology for high risk PCI , NSTEMI Hospital medicine was consulted for management of leukocytosis and PNA with stable R infiltrates and new L lung infiltrates on CXR from 03/09/2018, NO prior CXR on admission, patient was recently treated for PNA patient was admitted 03/06 hence has spent >48 hrs in-patient prior to onst of PNA, he was started on antibiotics after culture on 03/09 he has additional PMH of CHFrEF (EF 25-30%), HTN, Afib, HLD he also has chronic resp failure and is on home O2 Continues to be symptomatic, stated SOB is worse on laying in bed and relieved by sitting up in chair, repeat CXT 92V) shows worsening pulm edema. I will de-escalate antibiotics to levaquin po only I recommend diuresis at this time, cardiology /primary team following Suspicion for new PNA is low, patient was being treated for R sided PNA prior to admission Cultures are still negative STAT Chem ordered - Exam Vitals: Temp Pulse Resp BP Pulse Ox 97.5 F L 98 24 137/81 97 03/11/18 07:56 03/11/18 10:12 03/11/18 07:56 03/11/18 07:56 03/11/18 07:56 Exam: PHYSICAL EXAMINATION: GENERAL APPEARANCE: The patient is alert, oriented and in no acute distress. HEENT: Head is normocephalic. The sinuses are nontender. Pupils are equal and reactive. The nares are patent. Oropharynx clear without lesions. NECK: Supple without lymphadenopathy. HEART: Regular rate and rhythm. LUNGS: scattered bilateral crackles ABDOMEN: Soft, non-tender, nondistended with good bowel sounds heard. Inguinal area is normal. EXTREMITIES: Without cyanosis, clubbing or edema. NEUROLOGICAL: Gross non-focal. SKIN: Warm and dry without any rash. - Assessment and Plan (1) Non-STEMI (non-ST elevated myocardial infarction) Current Visit: Yes Status: Acute Assessment and Plan: Status post a PCI on 03/06/2018. Currently on dual antiplatelet therapy. Repeat echocardiogram after PCI showed ejection fractions 25-30%, small pericardial effusion. Cardiology is following. Continue management per cardio (2) Atrial fibrillation Current Visit: Yes Status: Chronic Assessment and Plan: Rate controlled, patient on xarelto, .Management per cardio (3) Hypertension Current Visit: Yes Status: Chronic Assessment and Plan: BP slightly low, continue monitoring. (4) Hyperlipidemia Current Visit: Yes Status: Chronic Assessment and Plan: Continue home medications. (5) DVT prophylaxis Current Visit: Yes Status: Acute Assessment and Plan: Continue xarelto (6) Pneumonia Current Visit: Yes Status: Suspected Assessment and Plan: Suspected Patient recently was hospitalized for pneumonia, repeat chest x-ray on 2017 showed possible right-sided pneumonia. Blood culture obtained, will obtain sputum culture if possible. Patient has no cough, sputum production, fever Leukocytosis has resolved Repeat CXR shows pulm edema, stale R Lung nodule, patient complained of SOB on laying flat Cultures remain negative Will de-escalate antibiotics to levaquin only Obtain Chem DisContinue Vanco and Cefepime (7) Acute systolic (congestive) heart failure Current Visit: Yes Status: Chronic Assessment and Plan: TTE on 03/07/2018 showed ejection fraction supportive 25-30%, small pericardial effusion. Patient with crackles and pulm edema on exam [place] lasix , per cardio (8) Coronary artery disease Current Visit: Yes Status: Chronic Assessment and Plan: Continue current treatment, cardiology following. (9) Leukocytosis Current Visit: Yes Status: Resolved Assessment and Plan: resolved - Time Spent with Patient Total time spent is greater than 50% in coordination of care (as documented) at patient's floor/unit and/or counseling patient: Plan of Care Discussed with: senior sales consultant Internal Medicine: Result - Labs CBC & Chem 7: 03/10/18 03:57 03/11/18 10:52 - Impressions Impressions Chest X-Ray 03/11/18 08:24 IMPRESSION: 1. No significant change in central predominant airspace opacities and underlying diffuse interstitial opacities, potentially alveolar and interstitial edema in the setting of congestive heart failure given suspected mild cardiomegaly. Pneumonia could appear similar. 2. Persistent trace right pleural effusion. D/ / Tristen Uribe MD / Tristen Uribe MD Interpreting Provider: Tristen Uribe MD - VTE Reasons for not Prescribing Prophylaxis: Not indicated-Anticoagulated or INR therapeutic Consult Discharge Plan - Plan Additional Instructions: RISK FACTORS: STOP SMOKING: If you smoke, STOP. Smoking or tobacco use significantly increases your risk of heart disease because nicotine causes the arteries to narrow or constrict. It also causes fats to stick to the artery. Your chances of having a heart attack are greatly increased if you continue to smoke. For more information, call the education line for smoking cessation 8-848-MEHMFZY EAT A LOW FAT/CHOLESTEROL/SODIUM DIET: This diet may help reduce your chances of having a heart attack. LIFTING: Avoid lifting anything more than 10 pounds for 5-7 days Prior to straining, laughing, sneezing and/or coughing, apply manual pressure directly over insertion site. ACTIVITY: You may walk or climb stairs as tolerated You can resume sexual activity as tolerated In general, you are encouraged to engage in a minimum of 30 minutes or more of moderate intensity physical activity, such as brisk walking, daily or at least 3 -4 times weekly BATHING Do not submerge the site into water (bath tub, hot tub, swimming pool) for 1 week. This can be a source for infection into the blood stream. You may shower after 24 hours SITE CARE: After 24 hours, you may remove the dressing and leave the site open to air. Keep the site clean and dry. Clean gently and pat dry. You can expect bruising and tenderness that gradually resolve within a week or two. Return to work as instructed per your physician Resume driving as instructed per physician Keep all scheduled follow up appointments Resume medications as instructed IMPORTANT: If prescribed a Platelet Aggregation Inhibitor such as, Plavix, Brilinta or Effient: Duration of therapy is minimum one year These medications are often used in combination with Aspirin in prevention of future heart attacks Never discontinue unless consult with your Supervising Producer STROKE (CVA) Risk factors for a stroke are: Age, cigarette smoking, diabetes, excessive alcohol consumption, family history, high blood pressure, overweight, physical inactivity, prior stroke, heart attack, diagnosis of carotid artery stenosis or other artery disease. Warning signs: Sudden numbness or weakness of the face, arm or leg; especially on one side of the body, sudden confusion, trouble speaking or understanding, sudden trouble seeing in one or both eyes, sudden trouble walking, dizziness, loss of balance or coordination, sudden severe headache with no cause. Call 911 or go to the Emergency Room. CONGESTIVE HEART FAILURE: If you have been diagnosed with Congestive Heart Failure (CHF) and your symptoms return, make an appointment with your physician Weigh yourself daily. Notify your physician if you have a weight gain of two or more pounds in one day or five or more pounds in one week. If you experience any difficulty breathing, please call 911 BLEEDING: Although the risk of bleeding is minimal, it can happen. If you have any bleeding from the site, apply firm pressure above the puncture site for 10-15 minutes. If the bleeding does not stop, continue manual pressure and call 911 Contact your physician if: You develop a fever greater than 101 degrees Fahrenheit Your site becomes reddened or has any drainage You have an increase in pain or burning at the site or if a large knot forms at the site. If you experience chest pain, shortness of breath, dizziness, or extreme tiredness, stop the activity and rest. Please notify your physicians office if you experience any of these symptoms and they are not relieved by rest please call 911! Referrals: Leelee Lin CNP [Partnered Physician] - (office will call patient at home with follow up appointment) Randy Jose MD [Primary Care Provider] - 03/14/18 9:30 am (2) Atrial fibrillation Qualifiers: Atrial fibrillation type: persistent Qualified Code(s): I48.1 - Persistent atrial fibrillation (3) Hypertension Qualifiers: Hypertension type: essential hypertension Qualified Code(s): I10 - Essential (primary) hypertension (4) Hyperlipidemia Qualifiers: Hyperlipidemia type: unspecified Qualified Code(s): E78.5 - Hyperlipidemia, unspecified (6) Pneumonia Qualifiers: Pneumonia type: due to Klebsiella pneumoniae Laterality: bilateral Lung location: unspecified part of lung Qualified Code(s): J15.0 - Pneumonia due to Klebsiella pneumoniae (8) Coronary artery disease Qualifiers: Coronary Disease-Associated Artery/Lesion type: [place] artery [place] vs. transplanted heart: [place] heart Associated angina: without angina Qualified Code(s): I25.10 - Atherosclerotic heart disease of [place] coronary artery without angina pectoris (9) Leukocytosis Qualifiers: Leukocytosis type: unspecified Qualified Code(s): D72.829 - Elevated white blood cell count, unspecified
[2018-03-11] MEDS ORDERED: levoFLOXacin 750 MG TABLET PO SCH (10:30)
[2018-03-11] MEDS ORDERED: Furosemide 40 MG/4 ML VIAL IVP ONE (10:46)
--- NOTE | 2018-03-11 10:51 | Cardiology Progress Note ---
Date of Encounter: 03/11/18 Time of Encounter: 10:30 Assessment and Plan (1) Coronary artery disease Current Visit: Yes Status: Chronic Patient presented for as outpatient for elective high-risk PCI with Dr. Scherer on 03/06/18. He underwent PCI to prox-mid LAD with use of impella during case. To clarify--patient is NOT a NSTEMI this admission. TTE 2017: EF 35% Vitals and telemetry stable. Bilateral groin cath sites are stable. No hematoma or redness. Limited TTE 03/07/18: LVEF 25-30%, no LV thrombus, small inferior/inferolateral pericardial effusion; reviewed with Dr. Apodaca, likely r/t high risk PCI. Will need to repeat limited TTE in a few weeks to re-evaluate. He was restarted on Xarelto yesterday for history of A. fib. Of note, patient is on triple therapy with aspirin, Plavix, and Xarelto. He appears to currently be tolerating. Importance of compliance with medications and continuing uninterrupted DAPT with aspirin and Plavix for minimum of 1 year discussed. Continue statin and beta gabriella. PT/OT following. Awaiting recommendations from recommendations for discharge planning. ? swing bed per OT/PT recs. VTE prophylaxis: Xarelto 15 mg daily. Qualifiers: Coronary Disease-Associated Artery/Lesion type: [place] artery [place] vs. transplanted heart: [place] heart Associated angina: without angina Qualified Code(s): I25.10 - Atherosclerotic heart disease of [place] coronary artery without angina pectoris (2) CHF (congestive heart failure) Current Visit: Yes Status: Chronic Recently diagnosed with systolic CHF--chronicity unclear. TTE 35% February, no prior TTE for comparison. Shortness of breath improving. s/p dose of Lasix yesterday. Chest x-ray this AM demonstrated trace pleural effusions and mild interstitial edema. 40 mg IV lasix x1 now; will change maintenance lasix to 20 mg daily (vs. 40 mg prn). Check labs in AM Continue strict I&O and daily weights. Continue Toprol and ARB. Qualifiers: Heart failure type: systolic Heart failure chronicity: chronic Qualified Code(s): I50.22 - Chronic systolic (congestive) heart failure (3) Nausea Current Visit: Yes Status: Resolved Reports nausea, has been present for nearly a week--improved today. Patient reports may be secondary to Levaquin (recent dx of PNA). Continues to improve, small BM yesterday and today. On colace. Continue to monitor. (4) Atrial fibrillation Current Visit: Yes Status: Chronic Rate controlled on BB. Plan to resume Xarelto this evening. Recheck CBC in AM to ensure H/H is stable in am prior to d/c. Qualifiers: Atrial fibrillation type: persistent Qualified Code(s): I48.1 - Persistent atrial fibrillation (5) Pneumonia Current Visit: Yes Status: Suspected Persistent PNA; had been on Levaquin in the outpatient setting by [place] Physician. Appreciate Hospitalist recommendations. Qualifiers: Pneumonia type: due to Klebsiella pneumoniae Laterality: bilateral Lung location: unspecified part of lung Qualified Code(s): J15.0 - Pneumonia due to Klebsiella pneumoniae (6) Physical deconditioning Current Visit: Yes Status: Acute Physical deconditioning secondary to recent pneumonia and hospital stay. PT/OT consulted and recommend transfer to swing bed upon discharge. Awaiting Social work recommendations. Discussion w patient/family: The assessment and plan as outlined above was discussed with the patient and/or family members who expressed understanding and agreement. All questions were answered. Thank you for involving us in the care of your patient. Please call with any questions. The patient will be discussed and reviewed with Dr. Scherer; changes to be made accordingly. Subjective Principal diagnosis: s/p LAD PCI Interval history: Seen and examined. Patient reports no complaints today, reports feels much better. PT/OT following, remains weak, however ambulated in the hallway. Bilateral groin cath sites appear normal, no hematoma or bleeding. Pulses present per doppler. Family at bedside report significant wheezing and shortness of breath this morning, however improved once up out of bed. Objective Vital Signs, Last 4 Hours Temp Pulse Resp BP Pulse Ox 03/11/18 10:12 98 03/11/18 07:56 97.5 F L 106 24 137/81 97 General: Conversant, Other (pale, frail) HEENT: Atraumatic, Normocephaly Cardiac: Other (irregularly irregular) Lungs: Other (RLL crackles, otherwise CTA) Neuro: Alert and responsive Abdomen: Soft Skin: No rashes noted on visualized skin Musculoskeletal: No Chest Wall Tenderness Extremities: No Edema, Normal Pulses Results 03/10/18 03:57 03/10/18 03:57 Active Medications Aspirin (Aspirin) 81 mg PO DAILY [facility] Stop: 09/06/18 09:01 Last Admin: 03/11/18 08:09 Dose: 81 mg Clopidogrel Bisulfate (Plavix) 75 mg PO DAILY [facility] Stop: 09/06/18 09:01 Last Admin: 03/11/18 08:09 Dose: 75 mg Dextrose/Water (Dextrose 50% (Syg)) 25 ml IVP AD PRN PRN Reason: Hypoglycemia Stop: 09/07/18 20:37 Docusate Sodium (Colace) 100 mg PO DAILY [facility] PRN Reason: Protocol Stop: 09/06/18 11:31 Last Admin: 03/11/18 08:09 Dose: 100 mg Furosemide (Lasix) 40 mg IVP ONCE ONE Stop: 03/11/18 10:47 Furosemide (Lasix) 20 mg PO DAILY [facility] Stop: 09/11/18 09:01 Glucagon (Glucagen) 1 mg IM ONCE PRN PRN Reason: Hypoglycemia Stop: 09/07/18 20:37 Glucose (Gluctose) 15 gm PO ONCE PRN PRN Reason: Hypoglycemia Stop: 09/07/18 20:37 Glucose (Gluctose) 30 gm PO ONCE PRN PRN Reason: Hypoglycemia Stop: 09/07/18 20:37 Dextrose (Dextrose 5%) 1,000 mls @ 100 mls/hr IVC .Q10H PRN PRN Reason: HYPOGLYCEMIA Stop: 09/07/18 20:37 Insulin Human Lispro (Humalog) 0 units SQ HS [facility] PRN Reason: Protocol Stop: 09/07/18 21:01 Last Admin: 03/10/18 21:12 Dose: 2 units Insulin Human Lispro (Humalog) 0 units SQ TIDAC [facility] PRN Reason: Protocol Stop: 09/08/18 07:31 Last Admin: 03/11/18 08:12 Dose: 6 units Levofloxacin (Levaquin) 750 mg PO Q48H [facility] Stop: 09/10/18 10:31 Losartan Potassium (Cozaar) 25 mg PO DAILY [facility] PRN Reason: Protocol Stop: 09/06/18 09:01 Last Admin: 03/11/18 08:09 Dose: 25 mg Metoprolol Succinate (Toprol Xl) 25 mg PO DAILY [facility] Stop: 09/07/18 09:01 Last Admin: 03/11/18 08:09 Dose: 25 mg Ondansetron HCl (Zofran) 4 mg IVP Q8HR PRN PRN Reason: Nausea And Vomiting Stop: 09/05/18 17:59 Last Admin: 03/07/18 15:09 Dose: 4 mg Rivaroxaban (Xarelto) 15 mg PO 1700 [facility] Stop: 09/09/18 17:01 Last Admin: 03/10/18 16:51 Dose: 15 mg Rosuvastatin Calcium (Crestor) 40 mg PO HS [facility] Stop: 09/05/18 21:01 Last Admin: 03/10/18 21:12 Dose: 40 mg - Imaging and Cardiology Chest Xray: report reviewed Echo: report reviewed Cardiac cath: report reviewed - EKG Interpretation EKG results cardiology: personally reviewed - VTE Reasons for not Prescribing Prophylaxis: Not indicated-Anticoagulated or INR therapeutic Consult Discharge Plan - Plan Additional Instructions: RISK FACTORS: STOP SMOKING: If you smoke, STOP. Smoking or tobacco use significantly increases your risk of heart disease because nicotine causes the arteries to narrow or constrict. It also causes fats to stick to the artery. Your chances of having a heart attack are greatly increased if you continue to smoke. For more information, call the education line for smoking cessation 2-695-PPDKVJY EAT A LOW FAT/CHOLESTEROL/SODIUM DIET: This diet may help reduce your chances of having a heart attack. LIFTING: Avoid lifting anything more than 10 pounds for 5-7 days Prior to straining, laughing, sneezing and/or coughing, apply manual pressure directly over insertion site. ACTIVITY: You may walk or climb stairs as tolerated You can resume sexual activity as tolerated In general, you are encouraged to engage in a minimum of 30 minutes or more of moderate intensity physical activity, such as brisk walking, daily or at least 3 -4 times weekly BATHING Do not submerge the site into water (bath tub, hot tub, swimming pool) for 1 week. This can be a source for infection into the blood stream. You may shower after 24 hours SITE CARE: After 24 hours, you may remove the dressing and leave the site open to air. Keep the site clean and dry. Clean gently and pat dry. You can expect bruising and tenderness that gradually resolve within a week or two. Return to work as instructed per your physician Resume driving as instructed per physician Keep all scheduled follow up appointments Resume medications as instructed IMPORTANT: If prescribed a Platelet Aggregation Inhibitor such as, Plavix, Brilinta or Effient: Duration of therapy is minimum one year These medications are often used in combination with Aspirin in prevention of future heart attacks Never discontinue unless consult with your Ski Patroller STROKE (CVA) Risk factors for a stroke are: Age, cigarette smoking, diabetes, excessive alcohol consumption, family history, high blood pressure, overweight, physical inactivity, prior stroke, heart attack, diagnosis of carotid artery stenosis or other artery disease. Warning signs: Sudden numbness or weakness of the face, arm or leg; especially on one side of the body, sudden confusion, trouble speaking or understanding, sudden trouble seeing in one or both eyes, sudden trouble walking, dizziness, loss of balance or coordination, sudden severe headache with no cause. Call 911 or go to the Emergency Room. CONGESTIVE HEART FAILURE: If you have been diagnosed with Congestive Heart Failure (CHF) and your symptoms return, make an appointment with your physician Weigh yourself daily. Notify your physician if you have a weight gain of two or more pounds in one day or five or more pounds in one week. If you experience any difficulty breathing, please call 911 BLEEDING: Although the risk of bleeding is minimal, it can happen. If you have any bleeding from the site, apply firm pressure above the puncture site for 10-15 minutes. If the bleeding does not stop, continue manual pressure and call 911 Contact your physician if: You develop a fever greater than 101 degrees Fahrenheit Your site becomes reddened or has any drainage You have an increase in pain or burning at the site or if a large knot forms at the site. If you experience chest pain, shortness of breath, dizziness, or extreme tiredness, stop the activity and rest. Please notify your physicians office if you experience any of these symptoms and they are not relieved by rest please call 911! Referrals: Leelee Lin CNP [Partnered Physician] - (office will call patient at home with follow up appointment) Randy Jose MD [Primary Care Provider] - 03/14/18 9:30 am
[2018-03-11 12:01] LABS: Calcium 8.7 mg/dL (8.6-10.3); Potassium 4.3 mEq/L (3.5-5.1)
[2018-03-11] MEDS: *HR* Rivaroxaban 15 MG TABLET PO SCH (17:06)
[2018-03-12] MEDS ORDERED: *HR* OxyCODONE Immed Rel 5 MG TABLET PO ONE (02:05)
[2018-03-12 04:26] LABS: Basophils # 0.1 K/mcL (0.0-0.2); Basophils % 0.7 %; Eosinophils # 0.2 K/mcL (0.0-0.6); Eosinophils % 1.9 %; Hematocrit 27.4 % (37.5-50.1); Hemoglobin 8.9 g/dL (12.9-16.9); Immature Granulocytes % 0.7 % (0-4); Lymphocytes # 0.9 K/mcL (0.6-4.6); Lymphocytes % 9.2 %; Mean Corpuscular HGB Conc 32.5 g/dL (31.6-35.5); Mean Corpuscular Volume 95.5 fL (83.0-100.0); Mean Platelet Volume 10.6 fL (9.4-12.4); Monocytes # 1.1 K/mcL (0.0-1.3); Monocytes % 11.4 %; Neutrophils # 7.6 K/mcL (1.6-8.9); Platelet Count 276 K/mcL (140-400); Red Blood Count 2.87 M/mcL (4.19-5.50); Red Cell Distribution Width 14.7 % (11.5-14.5); Segmented Neutrophils % 76.1 %
[2018-03-12 04:50] LABS: BUN/Creatinine Ratio 25 (6-26); Blood Urea Nitrogen 33 mg/dL (8-23); Calcium 8.6 mg/dL (8.6-10.3); Carbon Dioxide 21 mEq/L (23-29); Chloride 102 mEq/L (98-107); Glucose 152 mg/dL (70-105); Osmolality,Calculated 286 (280-300); Potassium 3.9 mEq/L (3.5-5.1); Sodium 133 mEq/L (136-145); eGFR For Non-African Americans 51 (> 60)
[2018-03-12] MEDS: Metoprolol XL (24 HR) Succ 25 MG TAB.ER.24H PO SCH (08:23)
[2018-03-12] MEDS: Aspirin 81 MG TAB.CHEW PO SCH (08:23)
[2018-03-12] MEDS: Insulin LISPRO 300 UNITS/3 ML VIAL SQ SCH ×2 (08:27→11:35)
[2018-03-12] MEDS ORDERED: Furosemide 20 MG TABLET PO SCH (09:00)
--- NOTE | 2018-03-12 10:22 | Discharge Summary ---
Orders not resulted at time of discharge: Pending orders Blood culture pending, prelim is negative. Date of Encounter: 03/12/18 Time of Encounter: 10:20 - Discharge Diagnosis (1) Coronary artery disease Priority: Primary Status: Chronic Qualifiers: Coronary Disease-Associated Artery/Lesion type: [place] artery [place] vs. transplanted heart: [place] heart Associated angina: without angina Qualified Code(s): I25.10 - Atherosclerotic heart disease of [place] coronary artery without angina pectoris (2) Leukocytosis Priority: Primary Status: Resolved Qualifiers: Leukocytosis type: unspecified Qualified Code(s): D72.829 - Elevated white blood cell count, unspecified (3) Atrial fibrillation Priority: Secondary Status: Chronic Qualifiers: Atrial fibrillation type: persistent Qualified Code(s): I48.1 - Persistent atrial fibrillation (4) CHF (congestive heart failure) Priority: Primary Status: Acute Qualifiers: Heart failure type: systolic Heart failure chronicity: chronic Qualified Code(s): I50.22 - Chronic systolic (congestive) heart failure (5) Nausea Priority: Secondary Status: Resolved (6) Physical deconditioning Priority: Primary Status: Chronic - Hospital Course Hospital course: Mr. Marshall is a 83 year old male with known severe CAD, ICMP, atrial fibrillation on xarelto, recent PNA, on home O2 for COPD presented for planned high risk PCI to the prox - mid LAD using impella with Dr. Scherer 03/06/18. There was no complication with his bilateral groin catheter sites. Mild ecchymosis seen, no hematoma. He denied recurrent chest pain during his stay. Limited TTE completed after procedure on 03/07/18 showed LVEF 25-30%, no LV thrombus, small inferior/inferolateral pericardial effusion. Will need to repeat limited TTE in a few weeks to re-evaluate pericardial effusion. He was restarted on Xarelto for history of afib. Of note, patient is on triple therapy with aspirin , Plavix, and Xarelto. He appears to currently be tolerating. Hgb noted to mildly decline. Reviewed with Dr. Scherer, mild decline in Hgb expected after procedure. No acute bleeding except for mild nose bleed during stay seen. Okay to d/c home. Importance of compliance with medications and continuing uninterrupted DAPT with aspirin and Plavix for minimum of 1 year discussed. Continue statin and beta gabriella. It was noted that he was being treated for PNA since February and [facility] He completed [facility] out-pt. During his stay he was seen to have leukocytosis and some SOB. CXR completed showed mild improvements in infiltrate on left and persistent dense infiltrate on the right. Hospitalist consulted for further treatment of his PNA. He was treated with IV antibiotic (vancomycin, cefepime) and transitioned to oral levaquin. blood cultures ordered by hospitalist with preliminary result negative after 72 hours. He is afebrile and SOB improved. Re-peat CXR showed no significant change but stated findings could represent CHF with trace pleural effusions, persistent right pleural effusion. IV lasix given. He was started on oral lasix daily for maintenance. He is going home on previously ordered home O2. Mild BELLE noted during stay likely related to acute on chronic CHF. Recommend f/u on labs in out-pt setting. Appears euvolemic on exam today. PT/OT evaluated for de-conditioning and recommended possible ECF. His insurance did not approve but did approve home health. Home health set up at discharge. - Time Spent with Patient Total time spent providing and/or coordinating discharge services: - Discharge Medications Prescriptions: levoFLOXacin [Levaquin] 750 mg PO Q48H #4 tablet Home Medications: Losartan [Cozaar] 25 mg PO DAILY 02/04/18 [History] Metoprolol Succinate [Toprol Xl] 50 mg PO DAILY 02/04/18 [History] Atorvastatin [Lipitor] 40 mg PO HS 30 Days #30 tablet 02/07/18 [Rx] Clopidogrel [Plavix] 75 mg PO DAILY 30 Days #30 tablet 02/07/18 [Rx] Metformin HCl [Glucophage] 1,000 mg PO BID 02/24/18 [History] Rivaroxaban [Xarelto] 20 mg PO DAILY 02/24/18 [History] Aspirin [Lo-Dose Aspirin EC] 81 mg PO DAILY 03/08/18 [History] Furosemide [Lasix] 20 mg PO DAILY tablet 03/12/18 [Rx] levoFLOXacin [Levaquin] 750 mg PO Q48H #4 tablet 03/12/18 [Rx] Allergies/Adverse Reactions: 3 Allergy/AdvReac Type Severity Reaction Status Date / Time Penicillins [PCN] Allergy Rash Verified 03/08/18 18:02 Date of admission: 03/07/18 15:49 Primary care physician: Randy Jose MD Consults: 03/06/18 15:48 Consult to Cardiac Rehabilitation-Phase1 [CONS] Routine Comment: Reason for Consult: AMI Call Completed: Yes Consult to Nurse Navigator [CONS] Routine Comment: 03/09/18 10:51 Consult to Physical Therapy [CONS] Routine Comment: Evaluate, develop and implement POC Reason for Consult: weakness Does patient have active BEDREST order?: No Is patient medically & hemodynamically stable?: Yes Patient assessed for mobility or mobilized this visit?: Yes 03/09/18 10:52 Consult to Occupational Therapy [CONS] Routine Comment: Evaluate, develop and implement POC Reason for Consult: weakness Does patient have active BEDREST order?: No Is patient medically & hemodynamically stable?: Yes Patient assessed for mobility or mobilized this visit?: Yes 03/09/18 18:34 Consult to Hospitalist [CONS] Routine Consulting Provider: Hospitalliliane Redmond Reason for Consult: CXR showing pulmonary infiltrates, and hypotension Time Notified: 18:35 Call Completed: Yes 03/10/18 12:43 Consult to Collector [CONS] Routine Reason for SW Consult: discharge planning Discharging clinician: Stas Barron Anticipated date of discharge: 03/12/18 Physical Examination Vital Signs, Last 4 Hours Temp Pulse Resp BP Pulse Ox 03/12/18 07:23 97.4 F L 91 18 107/78 100 General: Conversant, No Apparent Distress HEENT: Atraumatic, Normocephaly, Mucus Membranes Moist Neck: No JVD, Normal carotid pulses Cardiac: Reg Rate and Rhythm, Normal S1 and S2, No Murmur Lungs: Normal Breath Sounds, No Wheeze, Rales, Rhonchi Neuro: Alert and responsive, No focal deficits noted Abdomen: Soft, Non-Tender Skin: No rashes noted on visualized skin Musculoskeletal: No Chest Wall Tenderness Extremities: No Clubbing, No Cyanosis, No Edema, Normal Pulses - Patient Status Disposition: Home Health Service Condition: Fair Overall status at discharge: patient is progressing back to baseline - Discharge Instructions Instructions: Levofloxacin (By mouth), Myocardial Infarction (DC), Heart Failure (DC) Follow Up With: Leelee Lin CNP [Partnered Physician] - (office will call patient at home with follow up appointment) Randy Jose MD [Primary Care Provider] - 03/14/18 9:30 am Additional Instructions: RISK FACTORS: STOP SMOKING: If you smoke, STOP. Smoking or tobacco use significantly increases your risk of heart disease because nicotine causes the arteries to narrow or constrict. It also causes fats to stick to the artery. Your chances of having a heart attack are greatly increased if you continue to smoke. For more information, call the education line for smoking cessation 6-800-PGEYQGX EAT A LOW FAT/CHOLESTEROL/SODIUM DIET: This diet may help reduce your chances of having a heart attack. LIFTING: Avoid lifting anything more than 10 pounds for 5-7 days Prior to straining, laughing, sneezing and/or coughing, apply manual pressure directly over insertion site. ACTIVITY: You may walk or climb stairs as tolerated You can resume sexual activity as tolerated In general, you are encouraged to engage in a minimum of 30 minutes or more of moderate intensity physical activity, such as brisk walking, daily or at least 3 -4 times weekly BATHING Do not submerge the site into water (bath tub, hot tub, swimming pool) for 1 week. This can be a source for infection into the blood stream. You may shower after 24 hours SITE CARE: After 24 hours, you may remove the dressing and leave the site open to air. Keep the site clean and dry. Clean gently and pat dry. You can expect bruising and tenderness that gradually resolve within a week or two. Return to work as instructed per your physician Resume driving as instructed per physician Keep all scheduled follow up appointments Resume medications as instructed IMPORTANT: If prescribed a Platelet Aggregation Inhibitor such as, Plavix, Brilinta or Effient: Duration of therapy is minimum one year These medications are often used in combination with Aspirin in prevention of future heart attacks Never discontinue unless consult with your [employer] STROKE (CVA) Risk factors for a stroke are: Age, cigarette smoking, diabetes, excessive alcohol consumption, family history, high blood pressure, overweight, physical inactivity, prior stroke, heart attack, diagnosis of carotid artery stenosis or other artery disease. Warning signs: Sudden numbness or weakness of the face, arm or leg; especially on one side of the body, sudden confusion, trouble speaking or understanding, sudden trouble seeing in one or both eyes, sudden trouble walking, dizziness, loss of balance or coordination, sudden severe headache with no cause. Call 911 or go to the Emergency Room. CONGESTIVE HEART FAILURE: If you have been diagnosed with Congestive Heart Failure (CHF) and your symptoms return, make an appointment with your physician Weigh yourself daily. Notify your physician if you have a weight gain of two or more pounds in one day or five or more pounds in one week. If you experience any difficulty breathing, please call 911 BLEEDING: Although the risk of bleeding is minimal, it can happen. If you have any bleeding from the site, apply firm pressure above the puncture site for 10-15 minutes. If the bleeding does not stop, continue manual pressure and call 911 Contact your physician if: You develop a fever greater than 101 degrees Fahrenheit Your site becomes reddened or has any drainage You have an increase in pain or burning at the site or if a large knot forms at the site. If you experience chest pain, shortness of breath, dizziness, or extreme tiredness, stop the activity and rest. Please notify your physicians office if you experience any of these symptoms and they are not relieved by rest please call 911! - Diet and Activity Activity: increase activity as tolerated Diet: low fat, low cholesterol, low salt diet - VTE Reasons for not Prescribing Prophylaxis: Not indicated-Anticoagulated or INR therapeutic
--- NOTE | 2018-03-12 10:29 | Physician Discharge Referral ---
Home Health/Hosp Referral Info Transfer to: Home Health Attending Provider: winter Scherer Provider in Charge Post Discharge: PCP (Dr. Randy Jose) - Diagnosis (1) Coronary artery disease Priority: Primary Status: Chronic (2) Atrial fibrillation Priority: Secondary Status: Chronic (3) CHF (congestive heart failure) Priority: Primary Status: Acute (4) Physical deconditioning Priority: Primary Status: Chronic - Respiratory Orders Oxygen / L per min (2L as previously prescribed) Smoking Cessation: Smoking cessation has been advised. For more information, call the [place] Tobacco Quit Line at 6-428-DPFC-NOW. - Diet/Nutrition Diet/Nutrition Orders: No Added Salt (AMRTINE), Cardiac - Activity Activity Orders: Ambulate - Services Needed Following services are medically necessary services: Nursing, Home Health Aide, Physical Therapy, Occupational Therapy - Transfer Medications Prescriptions: levoFLOXacin [Levaquin] 750 mg PO Q48H #4 tablet Home Medications: Losartan [Cozaar] 25 mg PO DAILY 02/04/18 [History] Metoprolol Succinate [Toprol Xl] 50 mg PO DAILY 02/04/18 [History] Atorvastatin [Lipitor] 40 mg PO HS 30 Days #30 tablet 02/07/18 [Rx] Clopidogrel [Plavix] 75 mg PO DAILY 30 Days #30 tablet 02/07/18 [Rx] Metformin HCl [Glucophage] 1,000 mg PO BID 02/24/18 [History] Rivaroxaban [Xarelto] 20 mg PO DAILY 02/24/18 [History] Furosemide [Lasix] 40 mg PO DAILY PRN 30 Days #30 tablet 02/26/18 [Rx] Aspirin [Lo-Dose Aspirin EC] 81 mg PO DAILY 03/08/18 [History] levoFLOXacin [Levaquin] 750 mg PO Q48H #4 tablet 03/12/18 [Rx] Allergies/Adverse Reactions: 3 Allergy/AdvReac Type Severity Reaction Status Date / Time Penicillins [PCN] Allergy Rash Verified 03/08/18 18:02 Certification: Further, I certify that my clinical findings support that this patient is homebound (i.e. absences from home require considerable and taxing effort and are for medical reasons or sikh services or infrequently or short duration when for other reasons) because: Homebound Reason: Patient requires assistance of a person or device to safely leave home Attestation: My signature below is to certify that this patient is under my care and that I, or nurse practitioner, or a physician's trust operations assistant working with me, has a face-to -face encounter with this patient.
[2018-03-12 11:12] VITALS: BP 97/56
== END 2018-03-12 14:38 | disposition home health service (06) ==
LOC: 2NNU 07:21 → INVDIALAB 07:21 → ICNU 16:27 → 2NNU 03-07 15:31 → SUATTDRO 03-07 15:49
PROVIDERS: ADMIT Internal Medicine Cardiovascular Disease; ATTEND Internal Medicine

== ENCOUNTER 2018-03-13 21:19 | Inpatient (IN) ==
[2018-03-14] MEDS ORDERED: Naloxone 0.4 MG/ML INJ IVP PRN (00:07)
[2018-03-14 00:44] LABS: Basophils # 0.1 K/mcL (0.0-0.2); Basophils % 0.4 %; Eosinophils # 0.2 K/mcL (0.0-0.6); Eosinophils % 1.3 %; Hematocrit 27.5 % (37.5-50.1); Hemoglobin 8.6 g/dL (12.9-16.9); Immature Granulocytes % 0.5 % (0-4); Lymphocytes % 7.5 %; Mean Corpuscular HGB Conc 31.3 g/dL (31.6-35.5); Mean Corpuscular Volume 99.3 fL (83.0-100.0); Mean Platelet Volume 10.5 fL (9.4-12.4); Monocytes # 1.3 K/mcL (0.0-1.3); Monocytes % 9.7 %; Neutrophils # 10.9 K/mcL (1.6-8.9); Platelet Count 285 K/mcL (140-400); Red Blood Count 2.77 M/mcL (4.19-5.50); Segmented Neutrophils % 80.6 %
[2018-03-14 00:55] LABS: INR 3.7; Prothrombin Time 41.9 Seconds (9.4-12.1)
[2018-03-14 00:58] LABS: Albumin 2.7 g/dL (3.5-5.7); Albumin/Globulin Ratio 0.9 (1.1-2.2); Bilirubin,Direct 0.3 mg/dL (0.0-0.2); Bilirubin,Indirect 0.5 mg/dL (0.0-1.2); Bilirubin,Total 0.8 mg/dL (0.3-1.0); Calcium 8.3 mg/dL (8.6-10.3); Globulin 3.1 g/dL (2.4-3.5); Potassium 4.8 mEq/L (3.5-5.1); Total Protein 5.8 g/dL (6.4-8.9)
[2018-03-14 01:03] LABS: ABG Base Excess -6 mEq/L (-2 to 3); ABG HCO3 17 mEq/L (21-27); ABG Oxygen Saturation 99 % (95-98); ABG PCO2 28 mmHg (35-45); ABG PH 7.41 pH Units (7.32-7.45); ABG PO2 125 mmHg (85-104); ABG TCO2 18 mEq/L (20-26)
[2018-03-14] MEDS ORDERED: Lidocaine -MPF 1% 5 ML AMPUL INFILT ONE (02:02)
[2018-03-14] MEDS ORDERED: Lidocaine -MPF 1% 5 ML AMPUL ONE (02:09)
[2018-03-14] MEDS ORDERED: Ondansetron 4 MG/2 ML VIAL ONE (02:28)
[2018-03-14] MEDS ORDERED: Ondansetron 4 MG/2 ML VIAL IVP ONE (03:04)
--- NOTE | 2018-03-14 03:07 | Internal Med History&Physical ---
<Tristen Burrows - Last Filed: 03/14/18 03:58> Date of Encounter: 03/14/18 Time of Encounter: 03:07 Internal Medicine - H&P: HPI Chief complaint: Hypotension Admitted From: Emergency Dept Plans for Post Hospital Care: Home History of present illness: Mr. Marshall is a 83 year old male with history of heart failure with recent ejection fraction, coronary disease with recent stent placement presents from [facility] emergency department with hypotension. Patient is intermittently confused and history is difficult to obtain from him, there is no family at bedside. History is obtained mostly from the medical record. Patient was discharged from the hospital yesterday after having cardiac stents placed was noted to have a decreased EF. Apparently while at home visiting nurse checked his blood pressure and found to be extremely low and initially the patient had refused to come back to the hospital however his eventually convinced him to come. Blood pressure in the emergency department remained relatively hypotensive but improved mildly with fluids, fluids were given cautiously given his decreased EF and evidence of pulmonary edema on chest x-ray. Upon arrival to the emergency department mean arterial pressure was 65. Patient was awake and alert but seemed to have some intermittent confusion. He denied any chest pain or shortness of breath. Past Med Surg Social Fam HX - Past Medical History Medical history: atrial fibrillation, coronary artery disease, diabetes, hyperlipidemia, hypertension, myocardial infarction, peripheral artery disease Additional medical history: Cardiac stents x2 Psychiatric history: no psych history - Past Surgical History Surgical History: no surgical history - Social History Smoking Status: Former smoker Smokeless Tobacco Status: No Alcohol use: none Drug use: none - Family History Mother Living Status: Hx Family Cardiac Disorders: Yes (Htn) Hx Family Respiratory Disorders: No Hx Family Cancer: No Hx Family GI Disorders: No Hx Family Endocrine Disorder: No Hx Family Neuromuscular Disorders: No Hx Family Neurologic Disorders: No Hx Family HEENT Disorders: No Hx Family Autoimmune Disorders: No Father Living Status: Hx Family Respiratory Disorders: Yes Hx Family Cancer: Yes (Bladder ca) Hx Family GI Disorders: No Hx Family Endocrine Disorder: No Hx Family Neuromuscular Disorders: No Hx Family Neurologic Disorders: No Hx Family HEENT Disorders: No Hx Family Autoimmune Disorders: No Internal Medicine - H&P: Meds Losartan [Cozaar] 25 mg PO DAILY 02/04/18 [History] Metoprolol Succinate [Toprol Xl] 50 mg PO DAILY 02/04/18 [History] Atorvastatin [Lipitor] 40 mg PO HS 30 Days #30 tablet 02/07/18 [Rx] Clopidogrel [Plavix] 75 mg PO DAILY 30 Days #30 tablet 02/07/18 [Rx] Metformin HCl [Glucophage] 1,000 mg PO BID 02/24/18 [History] Aspirin [Lo-Dose Aspirin EC] 81 mg PO DAILY 03/08/18 [History] Furosemide [Lasix] 40 mg PO DAILY 03/14/18 [History] Rivaroxaban [Xarelto] 15 mg PO DAILY 03/14/18 [History] 3 Allergy/AdvReac Type Severity Reaction Status Date / Time Penicillins [PCN] Allergy Rash Verified 03/08/18 18:02 ROS unobtainable: due to mental status (Intermittent confusion, unable to obtain full ROS other than stated in HPI) All Systems PM: A 10-system review of systems was performed and is negative for pertinent findings except as documented above in the HPI. - Constitutional Vitals: Temp Pulse Resp BP Pulse Ox 94.4 F L 99 16 95/36 99 03/14/18 00:00 03/14/18 02:00 03/14/18 02:00 03/14/18 02:00 03/14/18 02:00 General appearance: Present: A&O X 3, no acute distress, answers questions appropriately (At times, other times intermittently confused) Exam: . - Head Head exam: Present: atraumatic, normal inspection, normocephalic - Eye Eye exam: Present: EOMI, PERRL - ENT ENT exam: Present: mucous membranes moist, normal oropharynx - Neck Neck exam general surgery: Present: full ROM, tenderness - Respiratory Respiratory exam: Present: rales (Mild, bibasilar). Absent: respiratory distress, rhonchi, wheezes, tachypnea - Cardiovascular Cardiovascular exam: Present: irregular rhythm. Absent: gallop, rubs, systolic murmur, tachycardia - GI/Abdominal GI/Abdominal exam: Present: hypoactive bowel sounds, soft. Absent: distended, tenderness - Extremities Exam Extremities exam: Present: pedal edema (2+), warm, radial pulses palpable and symmetrical (Pedal pulses also palpable). Absent: tenderness - Neurological Exam Neurological exam: Present: alert, altered (At times), oriented X3, no focal deficits. Absent: facial droop, speech deficit - Skin Skin exam: Present: cyanosis (To fingertips and toes). Absent: rash, warm Additional comments: Diffusely cool to touch Internal Med - H&P Results - Labs CBC & Chem 7: 03/14/18 00:27 03/14/18 00:27 Labs: Short CBC 03/14/18 Range/Units 00:27 WBC 13.5 H (4.3-11.1) K/mcL Hgb 8.6 L (12.9-16.9) g/dL Hct 27.5 L (37.5-50.1) % Plt Count 285 (140-400) K/mcL Neutrophils # 10.9 H (1.6-8.9) K/mcL BMP 03/14/18 00:27 Sodium 131 L Potassium 4.8 Chloride 100 Carbon Dioxide 20 L BUN 46 H Creatinine 2.51 H Glucose 236 H Calcium 8.3 L Cardiac Enzymes 03/14/18 Range/Units 00:27 Troponin I 0.13 H* (< 0.04) ng/mL Liver Function 03/14/18 Range/Units 00:27 Total Bilirubin 0.8 (0.3-1.0) mg/dL Direct Bilirubin 0.3 H (0.0-0.2) mg/dL AST 29 (13-39) Units/L ALT 53 H (7-52) Units/L Alkaline Phosphatase 81 (34-104) Units/L Albumin 2.7 L (3.5-5.7) g/dL - ABG Interpretation ABG results: 03/14/18 01:00 ABG pH 7.41 ABG pCO2 28 L ABG pO2 125 H ABG HCO3 17 L ABG Total CO2 18 L ABG O2 Saturation 99 H ABG Base Excess -6 L - Assessment and plan (1) Shock Status: Acute Assessment and plan: Etiology unclear. Patient presented with hypotension and remained hypotensive in the emergency department until just prior to leaving. Upon arrival the ICU patient was noted to have a map between 65 and 70 however had evidence of hypoperfusion with minimal urinary output, cool cyanotic extremities, altered mental status, rising lactic acid. At this point most likely etiologies are cardiogenic versus distributive shock, possibly sepsis. Patient is known to have EF of 25-30% in the setting of ischemic cardiomyopathy with recent cardiac stent placement which required use of impella device. Patient has bilateral diffuse opacities likely indicative of pulmonary edema but pneumonia cannot be excluded. Patient recently completed a course of antibiotics for pneumonia. This point favor cardiogenic shock or septic shock and we will treat with inotropic agents. Mixed venous oxygen saturation pending. If no response, will likely switch to norepinephrine. Blood cultures have been drawn, urine culture pending. Patient received approximately 1.7 L bolus and we will hold off on any further fluid boluses given the concern for cardiogenic pulmonary edema. Cardiology and critical care consult. (2) Acute kidney injury Status: Acute Assessment and plan: Likely prerenal in the setting of hypoperfusion due to shock as discussed above. Minimal urine output. Creatinine 2 days ago was 1.34, up to 2.59. Using pressors to increase perfusion as discussed above. We will check UA, urine creatinine, urine sodium, retroperitoneal ultrasound. If creatinine continues to worsen and urine output remains minimal patient may require nephrology consult potassium stable, no significant acidosis, mild fluid overload but not causing respiratory compromise no indication for acute dialysis at this time. (3) Anemia Status: Acute Assessment and plan: Hemoglobin went from 9.6-8.6, likely delusional. No evidence of active bleeding , doubt hemorrhagic shock as there is no source of bleeding. CBC and transfuse her hemoglobin greater than 8 given cardiac disease. Qualifiers: Anemia type: unspecified type Qualified Code(s): D64.9 - Anemia, unspecified (4) CHF (congestive heart failure) Status: Acute Assessment and plan: Possibly acute on chronic heart failure with reduced ejection fraction. Secondary to ischemic cardiomyopathy. Plan for acute shock state as above. Hold beta gabriella and ARB at this time due to hypotension Qualifiers: Heart failure type: systolic Heart failure chronicity: acute on chronic Qualified Code(s): I50.23 - Acute on chronic systolic (congestive) heart failure (5) Elevated troponin Status: Acute Assessment and plan: Mildly elevated at 0.16, has decreased to 0.13. No active chest pain or ischemic changes. Doubt obstructive coronary lesion given the patient's recent catheter, doubt in-stent restenosis. Trend troponin. Cardiology consult pending. (6) Atrial fibrillation Status: Chronic Assessment and plan: Currently in atrial fibrillation, rate controlled on presentation. Currently anticoagulated with Xarelto, INR 4.0 on presentation. Hold off on any rate controlling medications at this time Qualifiers: Atrial fibrillation type: persistent Qualified Code(s): I48.1 - Persistent atrial fibrillation (7) Coronary artery disease Status: Chronic Assessment and plan: Status post PCI on 03/06/2018. No active chest pain or ischemic EKG changes. Continue to duel antiplatelet therapy. Qualifiers: Coronary Disease-Associated Artery/Lesion type: sioux artery [place] vs. transplanted heart: sioux heart Associated angina: without angina Qualified Code(s): I25.10 - Atherosclerotic heart disease of sioux coronary artery without angina pectoris (8) Diabetes mellitus Status: Chronic Assessment and plan: Blood sugar mildly elevated, Accu-Cheks every 6 with sliding scale coverage. Qualifiers: Diabetes mellitus type: type 2 Diabetes mellitus trial judge insulin use: without senior care use Diabetes mellitus complication status: with unspecified complications Qualified Code(s): E11.8 - Type 2 diabetes mellitus with unspecified complications (9) Peripheral vascular disease Status: Chronic Assessment and plan: Good pulses in all 4 extremities. No evidence of acute ischemia. Patient did have some cyanosis likely related to distal hypoperfusion however pulses remain strong so doubt large vessel occlusion. (10) DVT prophylaxis Status: Acute Assessment and plan: Supratherapeutic INR on presentation, no indication for DVT prophylaxis at this time. - Time Spent With Patient Total time spent is greater than 50% in coordination of care (as documented) at patient's floor/unit and/or counseling patient: <Lashonda Malone - Last Filed: 03/14/18 18:44> Date of Encounter: 03/14/18 Internal Medicine - H&P: HPI History of present illness: Mr. Marshall is a 83 year old male All Systems PM: A 10-system review of systems was performed and is negative for pertinent findings except as documented above in the HPI. - Constitutional Vitals: Temp Pulse Resp BP Pulse Ox 96.0 F L 135 22 82/55 97 03/14/18 04:00 03/14/18 05:00 03/14/18 05:00 03/14/18 05:00 03/14/18 05:00 Internal Med - H&P Results - Labs CBC & Chem 7: 03/14/18 12:55 03/14/18 12:55 Labs: Short CBC 03/14/18 03/14/18 Range/Units 00:27 04:00 WBC 13.5 H 11.8 H (4.3-11.1) K/mcL Hgb 8.6 L 8.2 L (12.9-16.9) g/dL Hct 27.5 L 26.5 L (37.5-50.1) % Plt Count 285 261 (140-400) K/mcL Neutrophils # 10.9 H 9.7 H (1.6-8.9) K/mcL BMP 03/14/18 03/14/18 00:27 04:00 Sodium 131 L 131 L Potassium 4.8 4.8 Chloride 100 101 Carbon Dioxide 20 L 17 L BUN 46 H 48 H Creatinine 2.51 H 2.63 H Glucose 236 H 225 H Calcium 8.3 L 8.2 L Cardiac Enzymes 03/14/18 Range/Units 00:27 Troponin I 0.13 H* (< 0.04) ng/mL Liver Function 03/14/18 03/14/18 Range/Units 00:27 04:00 Total Bilirubin 0.8 0.8 (0.3-1.0) mg/dL Direct Bilirubin 0.3 H 0.3 H (0.0-0.2) mg/dL AST 29 28 (13-39) Units/L ALT 53 H 48 (7-52) Units/L Alkaline Phosphatase 81 76 (34-104) Units/L Albumin 2.7 L 2.6 L (3.5-5.7) g/dL - ABG Interpretation ABG results: 03/14/18 03/14/18 01:00 03:35 ABG pH 7.41 ABG pCO2 28 L ABG pO2 125 H ABG HCO3 17 L ABG Total CO2 18 L ABG O2 Saturation 99 H ABG Base Excess -6 L VBG pH 7.28 L VBG pCO2 38 L VBG pO2 68 H VBG HCO3 18 L - Assessment and plan (1) Atrial fibrillation Status: Chronic Qualifiers: Atrial fibrillation type: persistent Qualified Code(s): I48.1 - Persistent atrial fibrillation (2) Peripheral vascular disease Status: Chronic (3) Diabetes mellitus Status: Chronic Qualifiers: Diabetes mellitus type: type 2 Diabetes mellitus senior care insulin use: without senior care use Diabetes mellitus complication status: with unspecified complications Qualified Code(s): E11.8 - Type 2 diabetes mellitus with unspecified complications (4) DVT prophylaxis Status: Acute (5) Coronary artery disease Status: Chronic Qualifiers: Coronary Disease-Associated Artery/Lesion type: si[place] artery [place] vs. transplanted heart: sioux heart Associated angina: without angina Qualified Code(s): I25.10 - Atherosclerotic heart disease of si[place] coronary artery without angina pectoris (6) CHF (congestive heart failure) Status: Acute Qualifiers: Heart failure type: systolic Heart failure chronicity: acute on chronic Qualified Code(s): I50.23 - Acute on chronic systolic (congestive) heart failure (7) Elevated troponin Status: Acute (8) Shock Status: Acute (9) Acute kidney injury Status: Acute (10) Anemia Status: Acute Qualifiers: Anemia type: unspecified type Qualified Code(s): D64.9 - Anemia, unspecified - Time Spent With Patient Total time spent is greater than 50% in coordination of care (as documented) at patient's floor/unit and/or counseling patient: - Attending Attestation Patient seen and examined. Chart was reviewed. Case discussed with resident. Concern for heart failure in the setting of recent PCI to prox-mid LAD requiring use of impella. Now with evidence Cardiogenic shock with oliguria and rising Lactic Acid. Currently clinically stable from a hemodynamic and respiratory standpoint. Attempt to improve cardiac output with Dobutamine and Dopamine proved unsuccessful only elevating heart rate without improvement in perfusion. LA continues to trend up. Will trial vasopressors. Agree with Cardiology and Pulm Consult. 30 minutes of critical care time was spent in the management of the patient.
--- NOTE | 2018-03-14 03:10 | Procedure Note ---
Date of procedure: 03/14/18 Pre-op diagnosis: Hypotension Post-op diagnosis: same Procedure: Femoral central venous catheter: Consent was obtained from the patient's and verbal consent was obtained from the patient. The right groin was surveyed using ultrasound and deemed to be a suitable target. This area was cleaned and draped in the usual sterile fashion. The skin and soft tissues were anesthetized using 8 mL of 1% lidocaine. Under ultrasound guidance the introducer needle was advanced into the right femoral vein and dark red, nonpulsatile blood flow was returned. The guidewire was advanced to the needle without resistance. The skin and soft tissues were dilated and a 20 cm triple lumen catheter was advanced over the guidewire and into the vein without resistance. The guidewire was removed intact. All 3 ports were tested and shown to draw blood and flush easily. The catheter was then sutured in place. Some oozing was noted so Surgicel was applied and Biopatch and sterile dressing were applied. The patient tolerated the procedure well, there are no immediate complications. Anesthesia: local (1% lidocaine - 8cc) Surgeon: Tristen Burrows Was there an assistant operations manager present: No Estimated blood loss (cc): 10 IV fluids (cc): 10 Specimen: none Pathology: none sent Condition: critical Disposition: ICU
[2018-03-14 03:38] LABS: VBG HCO3 18 mEq/L (21-27); VBG PCO2 38 mmHg (41-51); VBG PH 7.28 pH Units (7.32-7.42); VBG PO2 68 mmHg (25-50)
[2018-03-14] MEDS ORDERED: *HR* Dextrose 50 % in Water (Syg) 50 ML SYRINGE IVP PRN (04:07)
[2018-03-14] MEDS ORDERED: Dextrose Gel 15 GM/37.5 ML TUBE PO PRN ×2 (04:07)
[2018-03-14] MEDS ORDERED: D5% in Water 1,000 ML IVC PRN (04:07)
[2018-03-14 04:31] LABS: Basophils % 0.3 %; Eosinophils % 0.3 %; Hematocrit 26.5 % (37.5-50.1); Hemoglobin 8.2 g/dL (12.9-16.9); Immature Granulocytes % 0.8 % (0-4); Lymphocytes # 0.8 K/mcL (0.6-4.6); Lymphocytes % 6.6 %; Mean Corpuscular HGB Conc 30.9 g/dL (31.6-35.5); Mean Corpuscular Hemoglobin 30.7 pg (28.0-33.3); Mean Corpuscular Volume 99.3 fL (83.0-100.0); Mean Platelet Volume 10.7 fL (9.4-12.4); Monocytes # 1.2 K/mcL (0.0-1.3); Monocytes % 10.2 %; Neutrophils # 9.7 K/mcL (1.6-8.9); Platelet Count 261 K/mcL (140-400); Red Blood Count 2.67 M/mcL (4.19-5.50); Red Cell Distribution Width 14.8 % (11.5-14.5); Segmented Neutrophils % 81.8 %
[2018-03-14 04:40] LABS: Albumin 2.6 g/dL (3.5-5.7); Albumin/Globulin Ratio 0.9 (1.1-2.2); Bilirubin,Direct 0.3 mg/dL (0.0-0.2); Bilirubin,Indirect 0.5 mg/dL (0.0-1.2); Bilirubin,Total 0.8 mg/dL (0.3-1.0); Calcium 8.2 mg/dL (8.6-10.3); Globulin 2.9 g/dL (2.4-3.5); Potassium 4.8 mEq/L (3.5-5.1); Total Protein 5.5 g/dL (6.4-8.9)
[2018-03-14] MEDS: Norepinephrine 4 MG in D5% in Water 250 ML IVC SCH ×2 (05:10→11:10)
[2018-03-14] MEDS: Insulin LISPRO 300 UNITS/3 ML VIAL SQ SCH ×2 (05:25→12:17)
[2018-03-14] MEDS ORDERED: Cefepime HCl 1,000 MG in 0.9 % Sodium Chloride Mini Bag 100 ML IVPB ONE (05:28)
[2018-03-14 06:08] LABS: INR 3.4; Prothrombin Time 38.1 Seconds (9.4-12.1)
--- NOTE | 2018-03-14 07:14 | Pulmonology Consult Note ---
<Roldan Mendieta W - Last Filed: 03/14/18 09:05> Date of Encounter: 03/14/18 Medications and Allergies Losartan [Cozaar] 25 mg PO DAILY 02/04/18 [History] Metoprolol Succinate [Toprol Xl] 50 mg PO DAILY 02/04/18 [History] Atorvastatin [Lipitor] 40 mg PO HS 30 Days #30 tablet 02/07/18 [Rx] Clopidogrel [Plavix] 75 mg PO DAILY 30 Days #30 tablet 02/07/18 [Rx] Metformin HCl [Glucophage] 1,000 mg PO BID 02/24/18 [History] Rivaroxaban [Xarelto] 20 mg PO DAILY 02/24/18 [History] Aspirin [Lo-Dose Aspirin EC] 81 mg PO DAILY 03/08/18 [History] Furosemide [Lasix] 20 mg PO DAILY tablet 03/12/18 [Rx] levoFLOXacin [Levaquin] 750 mg PO Q48H #4 tablet 03/12/18 [Rx] 3 Allergy/AdvReac Type Severity Reaction Status Date / Time Penicillins [PCN] Allergy Rash Verified 03/08/18 18:02 All Systems: The remainder of the systems were reviewed and are negative Physical Examination Vital Signs: Vital Signs, Last 4 Hours Temp Pulse Resp BP Pulse Ox 03/14/18 08:00 97.8 F 114 18 115/77 100 03/14/18 07:00 98 18 113/66 96 03/14/18 06:00 100 20 93/65 100 Results - Laboratory Findings CBC and BMP: 03/14/18 04:00 03/14/18 04:00 ABG ABG pH 7.41 pH Units (7.32-7.45) 03/14/18 01:00 ABG pCO2 28 mmHg (35-45) L 03/14/18 01:00 ABG pO2 125 mmHg (85-104) H 03/14/18 01:00 ABG O2 Saturation 99 % (95-98) H 03/14/18 01:00 PT/INR, D-dimer PT 38.1 Seconds (9.4-12.1) H 03/14/18 04:09 Abnormal lab findings: Abnormal lab results WBC 11.8 K/mcL (4.3-11.1) H 03/14/18 04:00 RBC 2.67 M/mcL (4.19-5.50) L 03/14/18 04:00 Hgb 8.2 g/dL (12.9-16.9) L 03/14/18 04:00 Hct 26.5 % (37.5-50.1) L 03/14/18 04:00 MCHC 30.9 g/dL (31.6-35.5) L 03/14/18 04:00 RDW 14.8 % (11.5-14.5) H 03/14/18 04:00 Neutrophils # 9.7 K/mcL (1.6-8.9) H 03/14/18 04:00 PT 38.1 Seconds (9.4-12.1) H 03/14/18 04:09 ABG pCO2 28 mmHg (35-45) L 03/14/18 01:00 ABG pO2 125 mmHg (85-104) H 03/14/18 01:00 ABG HCO3 17 mEq/L (21-27) L 03/14/18 01:00 ABG Total CO2 18 mEq/L (20-26) L 03/14/18 01:00 ABG O2 Saturation 99 % (95-98) H 03/14/18 01:00 ABG Base Excess -6 mEq/L (-2 to 3) L 03/14/18 01:00 VBG pH 7.28 pH Units (7.32-7.42) L 03/14/18 03:35 VBG pCO2 38 mmHg (41-51) L 03/14/18 03:35 VBG pO2 68 mmHg (25-50) H 03/14/18 03:35 VBG HCO3 18 mEq/L (21-27) L 03/14/18 03:35 Sodium 131 mEq/L (136-145) L 03/14/18 04:00 Carbon Dioxide 17 mEq/L (23-29) L 03/14/18 04:00 BUN 48 mg/dL (8-23) H 03/14/18 04:00 Creatinine 2.63 mg/dL (0.70-1.30) H 03/14/18 04:00 Est GFR ( Amer) 28 (> 60) L 03/14/18 04:00 Est GFR (Non-Af Amer) 23 (> 60) L 03/14/18 04:00 Glucose 225 mg/dL (70-105) H 03/14/18 04:00 POC Glucose 174 mg/dL (70-99) H 03/13/18 23:59 Lactic Acid 5.0 mmol/L (0.5-2.2) H* 03/14/18 04:09 Calcium 8.2 mg/dL (8.6-10.3) L 03/14/18 04:00 Direct Bilirubin 0.3 mg/dL (0.0-0.2) H 03/14/18 04:00 Troponin I 0.19 ng/mL (< 0.04) H* 03/14/18 06:15 Serum Total Protein 5.5 g/dL (6.4-8.9) L 03/14/18 04:00 Albumin 2.6 g/dL (3.5-5.7) L 03/14/18 04:00 Albumin/Globulin Ratio 0.9 (1.1-2.2) L 03/14/18 04:00 - Clinical Findings Intake & Output: Intake & Output 03/13/18 03/14/18 03/14/18 23:59 07:59 15:59 Intake Total 164.2 / 164.2 100 / 100 Output Total 705 / 705 0 / 0 Balance -540.8 / -540.8 100 / 100 Weight 74.7 kg Consult Discharge Plan - Plan Referrals: Randy Jose MD [Primary Care Provider] - - Attending Attestation I examined this patient and my medical decision-making was reviewed with the Resident Physician. I agree with the documented findings, disposition and treatment plan as described except to the extent set forth below. We independently had [id number] contact with the patient I spent 34min of Critical Care time with this patient. It involved decision making of high complexity to assess, manipulate, and support vital organ system failure and/or to prevent further life threatening deterioration of the patient' s condition. The time involved in the performance of separately reportable procedures was not counted toward critical care time. Patient seen and examined at bedside Labs, radiology, chart personally reviewed. Management was reviewed during multidisciplinary critical care rounds. 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 Patient has evidence of lactic acidosis we will trend this mild troponin elevation likely demand ischemia. Recent acute coronary syndrome on dual antiplatelet therapy GI: No clear evidence of gastrointestinal hemorrhage Nutrition: Nothing by mouth for now Renal: Acute kidney injury and metabolic acidosis secondary to cardiorenal syndrome nephrology has been consulted high probability for progressing to need for dialysis UOP Monitored, Cont to Trend sCr and monitor Electrolytes. 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 Lines: All lines examined without evidence of infection : Dispo: monitor in ICU for critical illness CODE: I CONFIRMED WITH THE PATIENT THAT HIS DNAR/DNI PROGNOSIS GUARDED <Luis Gross - Last Filed: 03/14/18 09:45> Date of Encounter: 03/14/18 Time of Encounter: 08:44 Assessment and Plan (1) Atrial fibrillation Current Visit: No Status: Chronic Qualifiers: Atrial fibrillation type: persistent Qualified Code(s): I48.1 - Persistent atrial fibrillation (2) Peripheral vascular disease Current Visit: No Status: Chronic (3) Diabetes mellitus Current Visit: No Status: Chronic Qualifiers: Diabetes mellitus type: type 2 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 transplanted heart: [place] heart Associated angina: without angina Qualified Code(s): I25.10 - Atherosclerotic heart disease of [place] coronary artery without angina pectoris (6) CHF (congestive heart failure) Current Visit: No Status: Acute Qualifiers: Heart failure type: systolic Heart failure chronicity: acute on chronic Qualified Code(s): I50.23 - Acute on chronic systolic (congestive) heart failure (7) Elevated troponin Current Visit: No Status: Acute (8) Shock Current Visit: Yes Status: Acute (9) Acute kidney injury Current Visit: Yes Status: Acute (10) Anemia Current Visit: Yes Status: Acute Qualifiers: Anemia type: unspecified type Qualified Code(s): D64.9 - Anemia, unspecified History of Present Illness Consult date: 03/14/18 Reason for consult: abnormal CXR/CT Chief complaint: Hypotension History of present illness: Patient is an 83-year-old male presenting from [place] emergency department on 03/13/2018. Patient has a history of atrial fibrillation, CAD, PAD, diabetes, hypertension and myocardial infarction with recent stent placement for triple-vessel disease with subsequent ICU stay at [facility] at the beginning of March,. The patient is oriented to name and location, but appears to be still somewhat confused. History obtained from nurse and medical record show that the patient was found to be hypotensive while at home yesterday evening and was encouraged to go to the hospital by his and home health care nurse. Patient was given 2 L of fluid at [place] ED and transferred to [facility] for further care. Upon admission to the ICU, right femoral line was placed, and pressor therapy with dobutamine and dopamine was initiated. Pressors have since been replaced with norepinephrine drip at 12 mcg /m. Previous echocardiogram shows EF of 25-30%, with pulmonary edema shown on chest x-ray. Repeat echocardiogram ordered today as well as retroperitoneal ultrasound for assessment of acute kidney injury likely caused by hypertension. Past Med Surg Social Fam HX - Past Medical History Medical history: atrial fibrillation, coronary artery disease, diabetes, hyperlipidemia, hypertension, myocardial infarction, peripheral artery disease Additional medical history: Cardiac stents x2 Psychiatric history: no psych history - Past Surgical History Surgical History: no surgical history - Social History Smoking Status: Former smoker Smokeless Tobacco Status: No Alcohol use: none Drug use: none - Family History Mother Living Status: Hx Family Cardiac Disorders: Yes (Htn) Hx Family Respiratory Disorders: No Hx Family Cancer: No Hx Family GI Disorders: No Hx Family Endocrine Disorder: No Hx Family Neuromuscular Disorders: No Hx Family Neurologic Disorders: No Hx Family HEENT Disorders: No Hx Family Autoimmune Disorders: No Father Living Status: Hx Family Respiratory Disorders: Yes Hx Family Cancer: Yes (Bladder ca) Hx Family GI Disorders: No Hx Family Endocrine Disorder: No Hx Family Neuromuscular Disorders: No Hx Family Neurologic Disorders: No Hx Family HEENT Disorders: No Hx Family Autoimmune Disorders: No All Systems: The remainder of the systems were reviewed and are negative - Constitutional Constitutional: no headache(s) - EENT Eyes: no loss of vision Nose, mouth and throat: no dizziness, no dysphagia, no odynophagia - Cardiovascular Cardiovascular: no chest pain, no dyspnea, no lightheadedness - Respiratory Respiratory: no dyspnea - Gastrointestinal Gastrointestinal: no abdominal pain - Neurological Neurological: no confusion, no disequilibrium, no dizziness, no headache(s), no loss of vision, no tingling, no other visual disturbances Physical Examination Vital Signs: Vital Signs, Last 4 Hours Temp Pulse Resp BP Pulse Ox 03/14/18 06:00 100 20 93/65 100 03/14/18 05:00 135 22 82/55 97 03/14/18 04:00 96.0 F L 130 22 93/54 99 General appearance: no acute distress, alert Eyes: nonicteric ENT: oropharynx moist Effort: normal Auscultation: bilateral: clear Cardiovascular: irregular rhythm Gastrointestinal: normoactive bowel sounds Extremities: no cyanosis, edema (1+ pitting edema noted in bilateral lower extremities) non-focal exam Results - Laboratory Findings CBC and BMP: 03/14/18 04:00 03/14/18 04:00 ABG ABG pH 7.41 pH Units (7.32-7.45) 03/14/18 01:00 ABG pCO2 28 mmHg (35-45) L 03/14/18 01:00 ABG pO2 125 mmHg (85-104) H 03/14/18 01:00 ABG O2 Saturation 99 % (95-98) H 03/14/18 01:00 PT/INR, D-dimer PT 38.1 Seconds (9.4-12.1) H 03/14/18 04:09 Abnormal lab findings: Abnormal lab results WBC 11.8 K/mcL (4.3-11.1) H 03/14/18 04:00 RBC 2.67 M/mcL (4.19-5.50) L 03/14/18 04:00 Hgb 8.2 g/dL (12.9-16.9) L 03/14/18 04:00 Hct 26.5 % (37.5-50.1) L 03/14/18 04:00 MCHC 30.9 g/dL (31.6-35.5) L 03/14/18 04:00 RDW 14.8 % (11.5-14.5) H 03/14/18 04:00 Neutrophils # 9.7 K/mcL (1.6-8.9) H 03/14/18 04:00 PT 38.1 Seconds (9.4-12.1) H 03/14/18 04:09 ABG pCO2 28 mmHg (35-45) L 03/14/18 01:00 ABG pO2 125 mmHg (85-104) H 03/14/18 01:00 ABG HCO3 17 mEq/L (21-27) L 03/14/18 01:00 ABG Total CO2 18 mEq/L (20-26) L 03/14/18 01:00 ABG O2 Saturation 99 % (95-98) H 03/14/18 01:00 ABG Base Excess -6 mEq/L (-2 to 3) L 03/14/18 01:00 VBG pH 7.28 pH Units (7.32-7.42) L 03/14/18 03:35 VBG pCO2 38 mmHg (41-51) L 03/14/18 03:35 VBG pO2 68 mmHg (25-50) H 03/14/18 03:35 VBG HCO3 18 mEq/L (21-27) L 03/14/18 03:35 Sodium 131 mEq/L (136-145) L 03/14/18 04:00 Carbon Dioxide 17 mEq/L (23-29) L 03/14/18 04:00 BUN 48 mg/dL (8-23) H 03/14/18 04:00 Creatinine 2.63 mg/dL (0.70-1.30) H 03/14/18 04:00 Est GFR ( Amer) 28 (> 60) L 03/14/18 04:00 Est GFR (Non-Af Amer) 23 (> 60) L 03/14/18 04:00 Glucose 225 mg/dL (70-105) H 03/14/18 04:00 POC Glucose 174 mg/dL (70-99) H 03/13/18 23:59 Lactic Acid 5.0 mmol/L (0.5-2.2) H* 03/14/18 04:09 Calcium 8.2 mg/dL (8.6-10.3) L 03/14/18 04:00 Direct Bilirubin 0.3 mg/dL (0.0-0.2) H 03/14/18 04:00 Troponin I 0.13 ng/mL (< 0.04) H* 03/14/18 00:27 Serum Total Protein 5.5 g/dL (6.4-8.9) L 03/14/18 04:00 Albumin 2.6 g/dL (3.5-5.7) L 03/14/18 04:00 Albumin/Globulin Ratio 0.9 (1.1-2.2) L 03/14/18 04:00 - Clinical Findings Intake & Output: Intake & Output 03/13/18 03/13/18 03/14/18 15:59 23:59 07:59 Intake Total 164.2 / 164.2 Output Total 705 / 705 Balance -540.8 / -540.8 Weight 74.7 kg
--- NOTE | 2018-03-14 08:43 | Cardiology Consult Note ---
Date of Encounter: 03/14/18 Time of Encounter: 08:35 Assessment and Plan (1) Coronary artery disease Current Visit: No Status: Chronic Patient with known severe CAD. He initially underwent LHC 02/04/18 revealing 50% stenosis in the Proximal LMCA. 80% stenosis in the Proximal LAD. 95% stenosis in the Mid LAD- long, diffusely diseased segment. 100% stenosis in the Proximal Circumflex- FAMILY ADVOCATE. OM1 fills via left to left collaterals. 100% stenosis in the Proximal RCA- FAMILY ADVOCATE. RPDA fills via left to right collaterals. He was initially evaluated by CT surgery and deemed a poor candidate. 03/07/18 he underwent elective high-risk PCI to his proximal and mid LAD with impella. After his procedure Limited TTE completed after procedure on 03/07/18 showed LVEF 25-30%, no LV thrombus, small inferior/inferolateral pericardial effusion. He was recommended to have repeat TTE in 2 weeks. His stay was complicated by pneumonia, CHF, and anemia. He was discharged home with home health on 03/12. He denies chest pain EKG shows atrial fibrillation with abbarent conduction there is no acute ST changes when compared to prior EKGs. Continue aspirin, statin, Plavix. No beta gabriella secondary to hypotension. Agree with repeat TTE to evaluate pericardial effusion. Qualifiers: Coronary Disease-Associated Artery/Lesion type: [place] artery [place] vs. transplanted heart: sam[place] heart Associated angina: without angina Qualified Code(s): I25.10 - Atherosclerotic heart disease of sam[place] coronary artery without angina pectoris (2) CHF (congestive heart failure) Current Visit: No Status: Acute Acute on chronic CHFrEF. EF 25%. Repeat TTE pending. CXR showed increased atelectasis with background edema. Small bilateral pleural effusions. Difficulty diuresing with hypotension. Currently on Levophed drip. Patient currently laying flat without any distress. I will discuss further management with Dr. Pack. Strict I&O and daily weights. Qualifiers: Heart failure type: systolic Heart failure chronicity: acute on chronic Qualified Code(s): I50.23 - Acute on chronic systolic (congestive) heart failure (3) Hypotension Current Visit: No Status: Acute Hypotension requiring pressor support. RP US pending, Hold antihypertensives. Initially thought to have cardiogenic shock, TTE pending. Known low EF. Qualifiers: Hypotension type: unspecified hypotension type Qualified Code(s): I95.9 - Hypotension, unspecified (4) Pneumonia Current Visit: No Status: Acute H/o PNA diagnosed in February [facility]. Noted leukocytosis and lactic acidosis. Pulmonology following to evaluate for possible persistent PNA. Qualifiers: Pneumonia type: due to unspecified organism Laterality: bilateral Lung location: unspecified part of lung Qualified Code(s): J18.9 - Pneumonia, unspecified organism (5) BELLE (acute kidney injury) Current Visit: Yes Status: Acute Likely secondary to hypotesion. (6) Atrial fibrillation Current Visit: No Status: Chronic Rate controlled afib. Agree with holding xarelto. INR 4.0 on admit. Previously 1.4. Qualifiers: Atrial fibrillation type: persistent Qualified Code(s): I48.1 - Persistent atrial fibrillation Discussion w patient/family: The assessment and plan as outlined above was discussed with the patient and/or family members who expressed understanding and agreement. All questions were answered. Thank you for involving us in the care of your patient. Please call with any questions. History of Present Illness Consult date: 03/14/18 Requesting physician: Tristen Burrows Consult reason: Hypotension, CHFrEF Chief complaint: Low blood pressure History of present illness: Mr. Marshall is a 83 year old male with known severe CAD status post recent iris PCI with the use of the impella to his proximal and mid LAD 03/07/18, ICMP, atrial fibrillation on xarelto, recent PNA, on home O2. He was discharged on 03/12/2018 after his high risk PCI and being treated for small pericardial effusion, CHF, and pneumonia. He presents from home with low blood pressures noted by his family and home health nurse. The patient denies chest pain or shortness of breath. He denies orthopnea, PND, or edema. He was reported to have altered mental status in the ED. On my exam he is alert and oriented. He is currently requiring Levophed for hypotension. His Afib is rate controlled. Limited TTE completed after procedure on 03/07/18 showed LVEF 25-30%, no LV thrombus, small inferior/inferolateral pericardial effusion. Repeat TTE was ordered to evaluate his pericardial effusion. Of note, patient is on triple therapy with aspirin, Plavix, and Xarelto. He was noted to have mild anemia during his last hospital stay. No signs of bleeding or blood and transfuse required. Laboratory evaluation shows hemoglobin is mildly decline. His found to have worsening BELLE, leukocytosis, and lactic acidosis.. CXR shows -increased atelectasis with background edema. Bilateral small pleural effusion. Past Med Surg Social Fam HX - Past Medical History Medical history: atrial fibrillation, coronary artery disease, diabetes, hyperlipidemia, hypertension, myocardial infarction, peripheral artery disease Additional medical history: Cardiac stents x2 Psychiatric history: no psych history - Past Surgical History Surgical History: no surgical history - Social History Smoking Status: Former smoker Smokeless Tobacco Status: No Alcohol use: none Drug use: none - Family History Mother Living Status: Hx Family Cardiac Disorders: Yes (Htn) Hx Family Respiratory Disorders: No Hx Family Cancer: No Hx Family GI Disorders: No Hx Family Endocrine Disorder: No Hx Family Neuromuscular Disorders: No Hx Family Neurologic Disorders: No Hx Family HEENT Disorders: No Hx Family Autoimmune Disorders: No Father Living Status: Hx Family Respiratory Disorders: Yes Hx Family Cancer: Yes (Bladder ca) Hx Family GI Disorders: No Hx Family Endocrine Disorder: No Hx Family Neuromuscular Disorders: No Hx Family Neurologic Disorders: No Hx Family HEENT Disorders: No Hx Family Autoimmune Disorders: No Medications and Allergies Losartan [Cozaar] 25 mg PO DAILY 02/04/18 [History] Metoprolol Succinate [Toprol Xl] 50 mg PO DAILY 02/04/18 [History] Atorvastatin [Lipitor] 40 mg PO HS 30 Days #30 tablet 02/07/18 [Rx] Clopidogrel [Plavix] 75 mg PO DAILY 30 Days #30 tablet 02/07/18 [Rx] Metformin HCl [Glucophage] 1,000 mg PO BID 02/24/18 [History] Rivaroxaban [Xarelto] 20 mg PO DAILY 02/24/18 [History] Aspirin [Lo-Dose Aspirin EC] 81 mg PO DAILY 03/08/18 [History] Furosemide [Lasix] 20 mg PO DAILY tablet 03/12/18 [Rx] levoFLOXacin [Levaquin] 750 mg PO Q48H #4 tablet 03/12/18 [Rx] 3 Allergy/AdvReac Type Severity Reaction Status Date / Time Penicillins [PCN] Allergy Rash Verified 03/08/18 18:02 All Systems Review: The remainder of the systems were reviewed and are negative Physical Examination Vital Signs, Last 4 Hours Temp Pulse Resp BP Pulse Ox 03/14/18 08:00 97.8 F 03/14/18 06:00 100 20 93/65 100 03/14/18 05:00 135 22 82/55 97 General: Conversant, No Apparent Distress, Other (Pale) HEENT: Atraumatic, Normocephaly, Mucus Membranes Moist Neck: No JVD, Normal carotid pulses Cardiac: Reg Rate and Rhythm, Normal S1 and S2, No Murmur Lungs: Other (Respirations are easy, lung sounds diminished posteriorly) Neuro: Alert and responsive, No focal deficits noted Abdomen: Soft, Non-Tender Skin: No rashes noted on visualized skin Musculoskeletal: No Chest Wall Tenderness Extremities: No Clubbing, No Cyanosis, Normal Pulses, Other (Trace bilateral lower extremity edema) Results 03/14/18 04:00 03/14/18 04:00 Lab Results 03/14/18 03/14/18 03/14/18 00:27 00:27 00:27 WBC 13.5 H Hgb 8.6 L Hct 27.5 L Plt Count 285 INR 3.7 Sodium 131 L Potassium 4.8 Chloride 100 Carbon Dioxide 20 L BUN 46 H Creatinine 2.51 H Glucose 236 H Calcium 8.3 L Magnesium 2.0 Total Bilirubin 0.8 AST 29 ALT 53 H Alkaline Phosphatase 81 Troponin I 03/14/18 03/14/18 03/14/18 00:27 04:00 04:00 WBC 11.8 H Hgb 8.2 L Hct 26.5 L Plt Count 261 INR Sodium 131 L Potassium 4.8 Chloride 101 Carbon Dioxide 17 L BUN 48 H Creatinine 2.63 H Glucose 225 H Calcium 8.2 L Magnesium 2.0 Total Bilirubin 0.8 AST 28 ALT 48 Alkaline Phosphatase 76 Troponin I 0.13 H* 03/14/18 03/14/18 04:09 06:15 WBC Hgb Hct Plt Count INR 3.4 Sodium Potassium Chloride Carbon Dioxide BUN Creatinine Glucose Calcium Magnesium Total Bilirubin AST ALT Alkaline Phosphatase Troponin I 0.19 H* - Imaging and Cardiology Echo: report reviewed Cardiac cath: report reviewed - EKG Interpretation EKG results cardiology: personally reviewed Consult Discharge Plan - Plan Referrals: Randy Jose MD [Primary Care Provider] -
[2018-03-14 08:46] LABS: Adenovirus Not Detected (Not Detect); Bordetella Pertussis Not Detected (Not Detect); Chlamydophila pneumoniae Not Detected (Not Detect); Coronavirus 229E Not Detected (Not Detect); Coronavirus HKU1 Not Detected (Not Detect); Coronavirus NL63 Not Detected (Not Detect); Coronavirus OC43 Not Detected (Not Detect); Human Metapneumovirus Not Detected (Not Detect); Human Rhinovirus/Enterovirus Not Detected (Not Detect); Influenza A Subtype 2009 H1 Not Detected (Not Detect); Influenza A Untypeable Not Detected (Not Detect); Influenza B Not Detected (Not Detect); Mycoplasma pneumoniae Not Detected (Not Detect); Parainfluenza Virus 1 Not Detected (Not Detect); Parainfluenza Virus 2 Not Detected (Not Detect); Parainfluenza Virus 3 Not Detected (Not Detect); Parainfluenza Virus 4 Not Detected (Not Detect); Respiratory Syncytial Virus Not Detected (Not Detect)
[2018-03-14] MEDS ORDERED: Aspirin Enteric Coated 81 MG Tablet PO SCH (09:00)
[2018-03-14 09:46] LABS: Bilirubin,Urine Large (Negative); Blood,Urine Large (Negative); Clarity,Urine Turbid (Clear); Color,Urine Red (Yellow); Glucose,Urine (UA) 250 mg/dL (Normal); Ketones,Urine 15 mg/dL (Negative); Leukocyte Esterase,Urine Moderate (Negative); Nitrite,Urine Positive (Negative); Protein,Urine >=300 mg/dL (Neg-Trace); Specific Gravity,Urine 1.029 (1.010-1.025); Urobilinogen,Urine Normal (Normal)
[2018-03-14 09:48] LABS: RBC,Urine TNTC per hpf (0-3); Squamous Epithelial Cell,Urine Many per lpf (None-Few); WBC,Urine 50-100 per hpf (0-3)
[2018-03-14 10:21] LABS: Potassium,Urine 61.9 mEq/L
[2018-03-14 10:27] LABS: Bacteria,Urine Few per hpf (None-Few); Granular Casts,Urine Moderate per lpf (None Seen)
[2018-03-14] MEDS ORDERED: Pantoprazole 40 MG VIAL IVP SCH (10:45)
--- NOTE | 2018-03-14 10:51 | Nephrology Consult Note ---
Date of Encounter: 03/19/18 Time of Encounter: 09:00 Assessment and Plan (1) BELLE (acute kidney injury) Status: Acute BELLE: likely multifactorial with sepsis, recent IV contrast and given the rate of worsening, I suspect this may continue to worsen. We discussed dialysis option that may be needed if he continues to see declining renal function in the coming 24-48hrs. Hyponatremia: recommend checking U osm, De, TSH, fasting cortisol. Could be a factor from him ischemic CMP, and my be a hypervolemic hyponatremia. Typically diuretics could be used for this etiology, but with his worsening renal function , I recommend trying to avoid nephrotoxins as able. Though he does not urgently need [employer], I do recommend following a renal protective strategy: strict I/Os, daily weights, avoidance of nephrotoxins and dosing renally cleared Rx by CrCl or eGFR. The UA demonstrated hematuria, proteinuria, and this could be ATN and/or contamination. Further urine studies will be needed. He is too ill at this time for a renal biopsy. The primary DDX remains ATN, but if he does not recover renal function, assuming he survives this critical illness, then he many need serologies to screen for a GN. Metabolic acidosis: noted with worsening renal function but I suspect from his worsening cardiac status. He is at high risk for morbidity and mortality. Anemia: will trend. Transfusion parameters as per primary. Thank you for consulting the [facility]; I will closely follow with you for this kind gentleman. (2) Anemia Status: Acute See above Qualifiers: Anemia type: unspecified type Qualified Code(s): D64.9 - Anemia, unspecified (3) Lactic acidosis Status: Acute See above (4) Proteinuria Status: Acute See above Qualifiers: Qualified Code(s): R80.9 - Proteinuria, unspecified (5) Hematuria Status: Acute See above Qualifiers: Qualified Code(s): R31.9 - Hematuria, unspecified (6) Acute hyponatremia Status: Acute See above (7) Shock Status: Acute See above (8) Atrial fibrillation Status: Chronic As per primary Qualifiers: Atrial fibrillation type: persistent Qualified Code(s): I48.1 - Persistent atrial fibrillation History of Present Illness - Reason for Consult Consult date: 03/14/18 Acute Kidney Injury Requesting physician: Roldan Mendieta - Chief Complaint BELLE - History of Present Illness Laith Marshall is a very pleasant 83 y/o WM with apmh of chronic AFib CAD, HTN and et al who recently underwent LHC and noted to have an ischemic cardiomyopathy. Nephrology was consulted due to his worsening renal function and electrolyte derangements. He reported feeling tired and weak, which has been worsening for several days to weeks. He was seen/examined in the [facility] ICU. He denied taking OTC NSAIDS recently. He affirmed having some mild nausea but no V/D or F/C. He was started on pressors and cardiology and pulmonology are also involved. He did not report active CP at the time of my interview. FHx: he said his formerly saw me as well for CKD. He expressed that he hopes that I'll be his kidney doctor. Past Med Surg Social Fam HX - Past Medical History Medical history: atrial fibrillation, coronary artery disease, diabetes, hyperlipidemia, hypertension, myocardial infarction, peripheral artery disease Additional medical history: Cardiac stents x2 Psychiatric history: no psych history - Past Surgical History Surgical History: no surgical history - Social History Smoking Status: Former smoker Smokeless Tobacco Status: No Alcohol use: none Drug use: none - Family History Mother Living Status: Hx Family Cardiac Disorders: Yes (Htn) Hx Family Respiratory Disorders: No Hx Family Cancer: No Hx Family GI Disorders: No Hx Family Endocrine Disorder: No Hx Family Neuromuscular Disorders: No Hx Family Neurologic Disorders: No Hx Family HEENT Disorders: No Hx Family Autoimmune Disorders: No Father Living Status: Hx Family Respiratory Disorders: Yes Hx Family Cancer: Yes (Bladder ca) Hx Family GI Disorders: No Hx Family Endocrine Disorder: No Hx Family Neuromuscular Disorders: No Hx Family Neurologic Disorders: No Hx Family HEENT Disorders: No Hx Family Autoimmune Disorders: No Medications and Allergies Losartan [Cozaar] 25 mg PO DAILY 02/04/18 [History] Metoprolol Succinate [Toprol Xl] 50 mg PO DAILY 02/04/18 [History] Atorvastatin [Lipitor] 40 mg PO HS 30 Days #30 tablet 02/07/18 [Rx] Clopidogrel [Plavix] 75 mg PO DAILY 30 Days #30 tablet 02/07/18 [Rx] Metformin HCl [Glucophage] 1,000 mg PO BID 02/24/18 [History] Aspirin [Lo-Dose Aspirin EC] 81 mg PO DAILY 03/08/18 [History] Furosemide [Lasix] 40 mg PO DAILY 03/14/18 [History] Rivaroxaban [Xarelto] 15 mg PO DAILY 03/14/18 [History] 3 Allergy/AdvReac Type Severity Reaction Status Date / Time Penicillins [PCN] Allergy Rash Verified 03/08/18 18:02 Review of Systems All Systems: reviewed and no additional remarkable complaints except as stated Exam - Vital Signs Vital signs: Initial Vital Signs Temp Pulse Resp BP Pulse Ox 94.4 F L 94 16 103/82 99 03/14/18 00:00 03/14/18 00:00 03/14/18 00:00 03/14/18 00:00 03/14/18 00:00 Vital Signs - Last 8 Hours Temp Pulse Resp BP Pulse Ox 03/14/18 10:00 110 20 99/68 99 03/14/18 09:00 96 18 100/86 100 03/14/18 08:00 97.8 F 114 18 115/77 100 03/14/18 07:00 98 18 113/66 96 03/14/18 06:00 100 20 93/65 100 03/14/18 05:00 135 22 82/55 97 03/14/18 04:00 96.0 F L 130 22 93/54 99 03/14/18 03:00 138 20 98/62 95 Intake and Output 03/13/18 03/14/18 03/14/18 23:59 07:59 15:59 Intake Total 164.2 / 164.2 100 / 100 Output Total 705 / 705 0 / 0 Balance -540.8 / -540.8 100 / 100 Intake: IV Fluids 164.2 / 164.2 100 / 100 DOBUTamine Premix 250 MG/250 ML 74 / 74 250 mg In 250 ml @ 2.5 MCG/KG/ MIN 11.205 mls/hr IVC .[id number] [facility] Rx#:[id number] DOPamine Premix 400mg/250mL 400 10.2 / 10.2 mg In 250 ml @ 5 MCG/KG/MIN 14 .006 mls/hr IVC .[id number] [facility] Rx #:[id number] Levophed 4 MG In Dextrose 5% 80 / 80 250 ML @ 8 MCG/MIN 30.48 mls/hr IVC CONT [facility] Rx#:[id number] Maxipime 1,000 MG In 0.9 % 100 / 100 Sodium Chloride (Mini-Bag +) 100 ML @ 200 mls/hr IVPB ONCE ONE Rx#:[id number] Output: Catheter 705 / 705 0 / 0 Urethral (Jaime) 680 / 680 Other: Weight 74.7 kg Blood Glucose* 174 243 Patient Weight 03/14/18 23:59 Weight 74.7 kg - General Appearance General appearance: well-developed, appears started age, chronically ill, fatigue, frail EENT: ATNC, PERRL, mucous membranes moist Neck: supple Respiratory: course breath sounds Cardiology: edema, irregular rhythm, normal S1, normal S2 Gastrointestinal: normoactive bowel sounds, no tenderness, no guarding Integumentary: warm and dry Neurologic: no focal deficit, no asterixis, alert and oriented x3 Musculoskeletal: no deformities, no erythema, no cyanosis Psychiatric: mood/affect appropriate, cooperative Results - Lab Results 03/14/18 12:55 03/14/18 12:55 Most recent lab results ABG pH 7.41 pH Units (7.32-7.45) 03/14/18 01:00 ABG pCO2 28 mmHg (35-45) L 03/14/18 01:00 ABG pO2 125 mmHg (85-104) H 03/14/18 01:00 ABG HCO3 17 mEq/L (21-27) L 03/14/18 01:00 ABG O2 Saturation 99 % (95-98) H 03/14/18 01:00 Calcium 8.2 mg/dL (8.6-10.3) L 03/14/18 04:00 Magnesium 2.0 mg/dL (1.6-2.6) 03/14/18 04:00 Urine Creatinine 98 mg/dL 03/14/18 09:20 Urine Sodium 21.0 mEq/L 03/14/18 09:20 I reviewed the labs, vitals, imaging, progress notes, med lists. Consult Discharge Plan - Plan Referrals: Randy Jose MD [Primary Care Provider] -
[2018-03-14] MEDS ORDERED: Amiodarone Premix 360 MG/200 ML BAG IVC ONE (11:52)
[2018-03-14] MEDS ORDERED: Amiodarone Premix 150 MG/100 ML BAG IVPB ONE (11:52)
[2018-03-14] MEDS ORDERED: Amiodarone Premix 360 MG/200 ML BAG IVC SCH (12:00)
[2018-03-14 13:08] LABS: Basophils % 0.1 %; Hematocrit 26.7 % (37.5-50.1); Hemoglobin 8.6 g/dL (12.9-16.9); Immature Granulocytes % 1.1 % (0-4); Lymphocytes # 0.8 K/mcL (0.6-4.6); Lymphocytes % 4.1 %; Mean Corpuscular HGB Conc 32.2 g/dL (31.6-35.5); Mean Corpuscular Hemoglobin 31.4 pg (28.0-33.3); Mean Corpuscular Volume 97.4 fL (83.0-100.0); Mean Platelet Volume 10.5 fL (9.4-12.4); Monocytes # 1.9 K/mcL (0.0-1.3); Monocytes % 9.1 %; Nucleated Red Blood Cells 0.1 /100 WBC (0); Platelet Count 341 K/mcL (140-400); Red Blood Count 2.74 M/mcL (4.19-5.50); Red Cell Distribution Width 15.1 % (11.5-14.5); Segmented Neutrophils % 85.6 %
[2018-03-14 13:15] LABS: Neutrophils # 17.6 K/mcL (1.6-8.9)
[2018-03-14 13:16] LABS: INR 3.2; Prothrombin Time 35.8 Seconds (9.4-12.1)
[2018-03-14 13:30] LABS: Calcium 8.3 mg/dL (8.6-10.3); Potassium 5.1 mEq/L (3.5-5.1)
[2018-03-14 13:33] VITALS: BP 102/64
[2018-03-14] MEDS ORDERED: Acetaminophen 325 MG TABLET PO ONE (13:40)
--- NOTE | 2018-03-14 15:36 | Death Note ---
Pronouncement Note - Date and Time of Date of : 03/14/18 Time of : 14:51 - PCOD Preliminary cause of : Heart failure - Summary Additional details: I was called by the nursing staff that the patient had not become unresponsive and gone into pulseless electrical activity. Patient was DNAR/DNI. I examined the patient and he was ashen cold to the touch a performed basic examination and there is no pulse no breath sounds or heart sounds pupils were fixed and dilated and there is no sponsor to sternal rub. Very shortly before this per the improvement manager the patient had complained of shortness of breath and was placed on BiPAP he was also noted be more diaphoretic and anxious to resolve with the application of BiPAP he was complaining of pain in his left foot which was persistent he also is complaining of some new lower back pain he was fully awake and alert and blood pressure was stable on vasopressor lactate had been trending down he was given some Tylenol about 2 minutes prior to cardiac arrest. Family was at bedside and I offered them emotional support and did my best to answer any questions that they may have. - Additional Data Confirmation of : no pulse, no respirations, no heart sounds, pupils fixed and dilated, other Family: at bedside Attending/PCP notified?: No Attending physician: Michelle Recio MD Was code activated?: No Autopsy requested?: No land title examiner notified?: No Organ bank notified?: No Advance directives: Yes
[2018-03-14] MEDS ORDERED: Levofloxacin 750 MG/150 ML 750 MG/150 ML BAG IVPB SCH (21:00)
--- NOTE | 2018-03-15 12:44 | Death Note ---
Discharge Sum: Summary - Date and Time Date of admission: 03/14/18 03:00 Date of : 03/14/18 Time of : 14:51 - Summary Details: Dr. Mendieta was called by the nursing staff to the patient's room as the patient had become unresponsive with pulseless electrical activity. Patient was noted to be DNAR/DNI. As per the pronouncement note, Dr. Mendieta examined the patient who was ashen, cold to the touch, without pulse, breath sounds, or heart sounds. Pupils were fixed and dilated and there was no response to sternal rub. Shortly before this incident, nursing staff reported the patient had complained of shortness of breath and was noted to be diaphoretic and anxious appearing. The patient was subsequently placed on BiPAP, which appeared to provide progressive relief to his symptoms. Patient had reported pain in his left foot which was noted to be an ongoing complaint that originated outside the hospital , as well as lower back pain. The patient was given Tylenol approximately 2 minutes prior to cardiac arrest for the treatment of this pain. Prior to this event, patient was alert and oriented, and blood pressure was stable on vasopressor. Lactate was trending downward. Patient's family was at bedside and were provided emotional support by Dr. Mendieta who answered questions from patient's family. - Additional Data Confirmation of as documented by pronouncing clinician: no pulse, no respirations, no heart sounds, pupils fixed and dilated Family: at bedside Attending/PCP notified?: No Attending physician: Michelle Recio MD Was code activated?: No Autopsy requested?: No glove examiner notified?: No Organ bank notified?: No Advance directives: Yes Discharge Sum: Diag - PCOD Probable Cause of : Heart failure Discharge Sum: Prov - Provider Primary care physician: Randy Jose MD Admitting clinician: Michelle Recio Attending physician on admission: Roldan Mendieta Consults: 03/14/18 00:07 Consult to Cardiology [CONS] Routine Comment: Consulting Provider: Cardiology [facility] Reason for Consult: Hypotension/HFrEF/Cardiac stents 4 days ago Call Completed: Yes 03/14/18 03:12 Consult to Pulmonology [CONS] Routine Consulting Provider: Pulm [facility] Vivi Reason for Consult: Shock Call Completed: Yes 03/14/18 08:00 Consult to Nephrology [CONS] Routine Consulting Provider: Kidney Vivi/LUZ MARINA/DEB/MARIO ALBERTO Reason for Consult: BELLE Time Notified: 08:01 Call Completed: Yes Pronouncing clinician: Roldan Mendieta
== END 2018-03-14 14:51 | disposition expired | DRG 291 ==
LOC: ICNU 03-14 03:00
PROVIDERS: ADMIT Internal Medicine; ATTEND Internal Medicine